=== PATIENT | male | born 1970 | race Caucasian/White ===

== ENCOUNTER 2019-05-17 12:41 | Outpatient (CLI) | payer BC, SELFPAY ==
[2019-05-17 12:52] LABS: Basophils Absolute Auto 0.04 K/mm3 (0.00-0.10); Basophils Percent Auto 0.7 % (0.0-1.0); Eosinophils Absolute Auto 0.12 K/mm3 (0.02-0.50); Hematocrit 45.8 % (40.0-54.0); Hemoglobin 16.1 g/dL (14.0-18.0); Immature Granulocyte Absolute 0.05 K/mm3 (0.00-0.00); Immature Granulocyte Percent A 0.8 % (0.0-0.0); Lymphocytes Absolute Auto 1.77 K/mm3 (1.10-4.50); Lymphocytes Percent Auto 29.1 % (18.0-42.0); Mean Corpuscular HGB Conc 35.2 g/dL (32.0-36.0); Mean Corpuscular Hemoglobin 34.8 pg (27.0-31.0); Mean Corpuscular Volume 98.9 fL (78.0-102.0); Mean Platelet Volume 10.7 fl (8.7-11.0); Monocytes Absolute Auto 0.45 K/mm3 (0.10-0.90); Monocytes Percent Auto 7.4 % (2.0-11.0); Neutrophils Absolute Auto 3.7 K/mm3 (1.7-7.2); Platelet Count Result 151 K/mm3 (150-420); Red Blood Count 4.63 M/mm3 (4.70-6.10); Red Cell Distribution Width 13.3 % (11.6-14.4); White Blood Count 6.1 K/mm3 (4.8-10.8)
[2019-05-17 13:17] LABS: Alanine Aminotransferase 86 U/L (16-63); Albumin Level 4.1 g/dL (3.4-5.0); Alkaline Phosphatase 60 U/L (46-116); Anion Gap 13.3 mmol/L (7-16); Aspartate Amino Transferase 36 U/L (15-37); Bilirubin,Total 0.8 mg/dL (0.00-1.00); Blood Urea Nitrogen 13 mg/dL (7-18); Calcium 9.1 mg/dL (8.5-10.1); Carbon Dioxide 29 mmol/L (21-32); Chloride 103 mmol/L (98-108); Creatine Kinase 98 U/L (39-308); Estimated Glomerular Filt Rate > 60; Glucose 116 mg/dL (70-99); Osmolality Calculated 293 mOsm/kg (285-295); Potassium 4.3 mmol/L (3.5-5.1); Sodium 141 mmol/L (136-145); Thyroid Stimulating Hormone 2.07 uIU/mL (0.36-3.74); Total Protein 7.3 g/dL (6.4-8.2); Troponin I < 0.02 ng/mL (0.00-0.056)
== END 2019-05-17 12:42 | disposition home or self-care (01) ==
LOC: CHSLAB 12:43
PROVIDERS: PCP Family Medicine; Visit Provider Family Medicine
DX: R07.89 Other chest pain (principal)
CPT/HCPCS: 36415; 80053; 82550; 84443; 84484; 85025

== ENCOUNTER 2019-06-11 08:53 | Outpatient (CLI) | payer BC, SELFPAY ==
--- NOTE | 2019-06-11 08:55 | EST_ITS ---
Patient Info Name: James Dave Age: 49 years : 1970 Gender: Male Ht: 67 in Wt: 272 lbs BSA: 2.48 m2 HR: 66 bpm BP: 104 / 71 mmHg Heart Rhythm: Sinus Rhythm Technical Quality: Good Exam Date: 06/11/2019 9:07 AM Exam Location: [facility] Patient Status: Outpatient Admit Date: 06/11/2019 Staff Ordering Physician: Shivam Rodriguez MD Attending Provider: Rob ROMAN CEP Referring Physician: Shivam Rodriguez; Exercise Technologist: Analilia Aguila CRT Exercise Physician: Mindy Roman CEP Exam Type: CA stress test treadmill Study Info Indications ChestPain - A treadmill exercise stress test was performed. Reason for Poor Study: poor patient cooperation History/Risk Factors Dyslipidemia: Yes Myocardial Infarction (ID): Yes Obesity: Yes History/Risk Factors Possible previous anterior ID. Cardiac Arrest: No Summary 1. 1. Negative Anatoly exercise stress test for ischemic ST changes by ECG criteria. However, patient achieved only 79% of MPHR for age group which reduces sensitivity of the test. 2. 2. Reduced functional capacity, achieving 8 METs of workload. 3. 3. Appropriate HR response to exercise. 4. 4. Appropriate HR recovery at 1 minute post exercise. 5. 5. No imaging with stress testing. Protocol: Anatoly Stress ECG Details Stage: REST Duration (min): 2 min : 48 sec Speed (mph): 0.0 Grade (%): 0 HR (bpm): 67 SBP (mmHg): 104 DBP (mmHg): 71 METS: --- Stage: REST Duration (min): 3 min : 50 sec Speed (mph): 0.0 Grade (%): 0 HR (bpm): 68 SBP (mmHg): 104 DBP (mmHg): 71 METS: --- Stage: STAGE 1 Duration (min): 1 min : 0 sec Speed (mph): 1.7 Grade (%): 10 HR (bpm): 85 SBP (mmHg): 104 DBP (mmHg): 71 METS: --- Stage: STAGE 1 Duration (min): 2 min : 0 sec Speed (mph): 1.7 Grade (%): 10 HR (bpm): 100 SBP (mmHg): 104 DBP (mmHg): 71 METS: --- Stage: STAGE 1 Duration (min): 3 min : 0 sec Speed (mph): 1.7 Grade (%): 10 HR (bpm): 104 SBP (mmHg): 139 DBP (mmHg): 49 METS: --- Stage: STAGE 2 Duration (min): 1 min : 0 sec Speed (mph): 2.5 Grade (%): 12 HR (bpm): 113 SBP (mmHg): 139 DBP (mmHg): 49 METS: --- Stage: STAGE 2 Duration (min): 2 min : 0 sec Speed (mph): 2.5 Grade (%): 12 HR (bpm): 121 SBP (mmHg): 139 DBP (mmHg): 49 METS: --- Stage: STAGE 2 Duration (min): 3 min : 0 sec Speed (mph): 2.5 Grade (%): 12 HR (bpm): 125 SBP (mmHg): 139 DBP (mmHg): 49 METS: --- Stage: STAGE 3 Duration (min): 1 min : 0 sec Speed (mph): 3.4 Grade (%): 14 HR (bpm): 135 SBP (mmHg): 139 DBP (mmHg): 49 METS: --- Stage: STAGE 3 Duration (min): 1 min : 0 sec Speed (mph): 3.4 Grade (%): 14 HR (bpm): 135 SBP (mmHg): 139 DBP (mmHg): 49 METS: --- Stage: RECOVERY Duration (min): 0 min : 59 sec Michelle
== END 2019-06-11 08:54 | disposition home or self-care (01) ==
PROVIDERS: PCP Family Medicine; Visit Provider Family Medicine
DX: R07.89 Other chest pain (principal)
CPT/HCPCS: 93017

== ENCOUNTER 2019-06-14 08:35 | Outpatient (CLI) | payer BC, SELFPAY ==
--- NOTE | ~2019-06-14 | XR_ITS ---
EXAMINATION: XR chest 2V 06/14/2019 10:47 INDICATION: Chest pain and pressure PROCEDURE: 2 view chest COMPARISON: Comparison to multiple prior studies sequentially, with oldest reviewed study dated 01/08. FINDINGS: The lungs are clear. The cardiomediastinal silhouette is within normal limits. There are no pleural effusions. There is no pneumothorax suspected. IMPRESSION: 1: NO ACUTE CARDIOPULMONARY DISEASE. Reviewed, dictated and finalized at location A.
--- NOTE | 2019-06-14 09:43 | ECHO_ITS ---
Patient Info Name: James Dave Age: 49 years : 1970 Gender: Male Ht: 69 in Wt: 265 lbs BSA: 2.47 m2 HR: 73 bpm BP: 134 / 79 mmHg Technical Quality: Fair Exam Date: 06/14/2019 8:45 AM Exam Location: [facility] Patient Status: Outpatient Admit Date: 06/14/2019 Staff Ordering Physician: Shivam Rodriguez MD Station Installation Supervisor: Brianna Rocha RDCS Attending Provider: Shivam Rodriguez MD Referring Physician: Michael BAY; Exam Type: CA echo doppler color flow Study Info Indications R94.31 - Abnormal electrocardiogram ECG EKG Complete two-dimensional, color flow and Doppler transthoracic echocardiogram is performed with contrast to opacify the left ventrical and to improve the deliniation of the left ventrical endocarial boarders. Strain analysis performed. Contrast/Agitated Saline Contrast/Ag. Saline: Definity Amount: 7.00 ml Existing IV Access: No IV Access Condition: patent with no signs of infiltration New IV Access: Antecubital Space and Right Site Condition: No extravasation, Site dressing applied and IV removed History/Risk Factors Hypertension: Yes Dyslipidemia: Yes Myocardial Infarction ([place]): Yes Obesity: Yes Family History: Coronary Artery Disease Frailty Scale (CSHA): 3: Managing Well Cardiac Arrest: No Summary 1. Left ventricular chamber dimension is normal. 2. Left ventricular systolic function is normal, estimated at 60-65%. 3. The left ventricular diastolic function is normal. 4. E/e' 8 is minimally elevated. 5. Global longitudinal strain is abnormal at -13.7%. 6. There is trace aortic valve regurgitation. 7. There is trace pulmonic regurgitation. Left Ventricle E/e' 8 is minimally elevated. Global longitudinal strain is abnormal at -13.7%. Left ventricular chamber dimension is normal. Left ventricular systolic function is normal, estimated at 60-65%. The left ventricular diastolic function is normal. Right Ventricle Right ventricular chamber dimension is normal. Right ventricular systolic function is normal. Left Atria Left atrial chamber dimension is normal. Right Atria Right atrial chamber dimension is normal. Aortic Valve The aortic valve is trileaflet. There is no aortic valve stenosis. There is trace aortic valve regurgitation. Pulmonic Valve There is trace pulmonic regurgitation. Mitral Valve There is no mitral valve stenosis. There is no mitral valve regurgitation. Tricuspid Valve There is no tricuspid valve regurgitation. Pericardium/Pleural There is no pericardial effusion. Inferior Vena Cava Normal inferior vena cava with >50% collapse upon inspiration consistent with normal right atrial pressure, 5 mmHg. Aorta The aortic root size at the sinus of Valsalva is normal. Left Ventricular Outflow Tract Name Value Normal LVOT 2D LVOT Diameter 2.1 cm LVOT Doppler LVOT Peak Velocity 98 cm/s LVOT Peak Gradient 4 mmHg LVOT Mean Gradient 2 mmHg
== END 2019-06-14 08:36 | disposition home or self-care (01) ==
PROVIDERS: PCP Family Medicine; Visit Provider Family Medicine
DX: R06.02 Shortness of breath (principal); R94.31 Abnormal electrocardiogram [ECG] [EKG]; R07.89 Other chest pain
CPT/HCPCS: 71046; 94060; 94726; 94729; C8929

== ENCOUNTER 2019-07-16 07:35 | Outpatient (CLI) | payer BC, SELFPAY ==
--- NOTE | ~2019-07-16 | US_ITS ---
EXAMINATION: US carotid duplex BI DATE: 07/16/2019 08:31 INDICATION: Carotid artery disease TECHNIQUE: Grayscale, color Doppler, and pulsed Doppler images of the cervical carotid arteries were obtained. The degree of vessel stenosis is placed in one of the following categories: normal, <50%, 5 0-69%, >=70% but less than near-occlusion, near-occlusion, or total occlusion. Note that percent sten osis relative to normal distal artery lumen diameter is indirectly measured from velocity measurement s as described by Adithya, et al. Radiology 2003; [id number]. Notes: Normal: Peak systolic velocity <125 centimeters/sec and no plaque <50%. Peak systolic velocity <125 ( EDV <40; ICA/CCA PSV ratio <2.0; used these factors only a tandem lesions or low cardiac output or co ntralateral disease) 50-69 %: PSV 125-230 (EDV 40-100; ratio 2-4) >= 70% but less than near occlusion: PSV greater than 230 (EDV > 100; ratio> 4.0) Near Occlusion: PSV that is variable; markedly narrowed lumen Occlusion: Absent flow on color/spectral Doppler and no lumen on orozco scale. COMPARISON: None. FINDINGS: RIGHT: The right common carotid artery (CCA) peak systolic velocity (PSV) is 124 cm/s. The right internal ca rotid artery (ICA) PSV is 103 cm/s. The right ICA end-diastolic velocity (EDV) is 24 cm/s. The right ICA/CCA PSV ratio is 0.8. The external carotid artery (ECA) PSV is 108 cm/s. No flow visualized in th e right vertebral artery. LEFT: The left CCA PSV is 103 cm/s. The left ICA PSV is 186 cm/s. The left ICA EDV is 28 cm/s. The left ICA /CCA PSV ratio is 1.8 . The ECA PSV is 120 cm/s. There is antegrade flow in the left vertebral arter y. IMPRESSION: 1. Less than 50% stenosis in the right internal carotid artery by sonographic criteria. 2. 50-69% stenosis in the left internal carotid artery by sonographic criteria. 3: No flow visualized in the right vertebral artery, possibly occluded. Reviewed, dictated and finalized at location A. IMPRESSION: 1. Less than 50% stenosis in the right internal carotid artery by sonographic c riteria. 2. 50-69% stenosis in the left internal carotid artery by sonographic criteria. 3: No flow visualized in the right vertebral artery, possibly occluded.
== END 2019-07-16 07:36 | disposition home or self-care (01) ==
PROVIDERS: PCP Family Medicine; Visit Provider Specialist
DX: R07.9 Chest pain, unspecified (principal); I65.22 Occlusion and stenosis of left carotid artery; I77.89 Other specified disorders of arteries and arterioles
CPT/HCPCS: 78452; 93017; 93880; A9502; J2785

== ENCOUNTER 2019-07-16 16:46 | Emergency (ER) | payer BC, SELFPAY ==
[2019-07-16 16:57] VITALS: BP 129/79; PULSE 73; RESP 20; O2SAT 98
--- NOTE | 2019-07-16 17:02 | ED.BACK ---
HPI - Back Pain/Injury General Chief Complaint: Back Pain/Injury Stated Complaint: side pain Time Seen by Provider: 07/16/19 16:58 Source: patient and RN notes reviewed Mode of arrival: ambulatory History of Present Illness MD elicited complaint: back pain Onset (ago): day(s) (10) Timing: intermittent Severity: moderate Similar Symptoms Previously: No Quality: dull and aching Location: right flank Radiation: none Exacerbating factors: movement and eating Relieving factors: none Associated symptoms: denies other symptoms Work related injury: No Related Data Home Medications Medication Instructions Recorded Confirmed allopurinol 150 mg PO DAILY 12/14/18 07/16/19 atorvastatin 40 mg PO HS 12/14/18 07/16/19 buspirone 15 mg PO DAILY 12/14/18 07/16/19 citalopram 20 mg PO DAILY 12/14/18 07/16/19 gabapentin 300 mg PO TID 12/14/18 07/16/19 lisinopril-hydrochlorothiazide 1 tablet PO DAILY 12/14/18 07/16/19 metoprolol tartrate 25 mg PO BID 12/14/18 07/16/19 venlafaxine 75 mg PO DAILY 12/14/18 07/16/19 Allergies Allergy/AdvReac Type Severity Reaction Status Date / Time iohexol AdvReac Anaphylaxis Verified 01/29/19 08:57 [From CONTRAST - CT, XRAY] Review of Systems Constitutional: Constitutional: Denies chills, Denies fever(s) and Denies weakness Eyes: Eyes: Reports no additional eye complaints ENT: Reports system reviewed and no additional complaints, except as documented Cardiovascular: Cardiovascular: Reports no additional cardiovascular complaints Respiratory: Respiratory: Reports no additional respiratory complaints Gastrointestinal: Gastrointestinal: Denies constipation, Denies nausea and Denies vomiting Genitourinary: Genitourinary: Denies hematuria, Denies dysuria, Denies urinary frequency and Denies urinary incontinence Musculoskeletal: Musculoskeletal: Reports as per HPI Integumentary/Breasts: Skin/Breast: Reports system reviewed and no additional complaints, except as docu Neurologic: Reports system reviewed and no additional complaints, except as documented Psychiatric: Psychiatric: Reports no additional psychiatric complaints Hematologic/Lymphatic: Hematologic/Lymphatic: Reports no additional hematologic/lymphatic complaints Allergic/Immunologic: Allergic/Immunologic: Reports no additional allergic/immunologic complaints [facility] Past Medical History Medical History Depression Gout Hypercholesterolemia Hypertension Surgical History Surgical History H/O cervical spine surgery Family History Family History Father Hypertension Mother Hypertension Social History Social History Social History: 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 Additional living arrangements comments: spouse 2016 Additional occupation/education comments: unknown Gender identity (if verbalized by the patient): Male Exam Const: General: healthy appearing, no acute distress and alert Nutritional Appearance: well nourished and obese centrally obese Orientation/consciousness: patient oriented x3 HENMT: Head: normal to inspection Ears: external ears normal General nose exam: Normal external nose present Face and sinus: normal facial exam Mouth: Yes lip normal and Yes moist mucous membranes Eyes: Conjunctivae: conjunctivae normal Pupils: Equal, round and reactive pupils present EOM: EOMs intact bilaterally Neck: Neck: normal visual inspection Resp: Effort & Inspection: normal respiratory effort Auscultation: clear to auscultation bilaterally Cardio: Rate: regular rate Rhythm: regular rhythm : General: Yes CVA tenderness on the right (Along lower rib border, mid axillary line) Male General Exam: Yes normal externa
[2019-07-16 17:22] LABS: Basophils Absolute Auto 0.04 K/mm3 (0.00-0.10); Basophils Percent Auto 0.5 % (0.0-1.0); Eosinophils Absolute Auto 0.16 K/mm3 (0.02-0.50); Eosinophils Percent Auto 1.9 % (1.0-6.0); Hematocrit 42.3 % (40.0-54.0); Hemoglobin 15.1 g/dL (14.0-18.0); Immature Granulocyte Absolute 0.06 K/mm3 (0.00-0.00); Immature Granulocyte Percent A 0.7 % (0.0-0.0); Lymphocytes Absolute Auto 2.45 K/mm3 (1.10-4.50); Lymphocytes Percent Auto 29.7 % (18.0-42.0); Mean Corpuscular HGB Conc 35.7 g/dL (32.0-36.0); Mean Corpuscular Hemoglobin 35.1 pg (27.0-31.0); Mean Corpuscular Volume 98.4 fL (78.0-102.0); Mean Platelet Volume 10.8 fl (8.7-11.0); Monocytes Absolute Auto 0.95 K/mm3 (0.10-0.90); Monocytes Percent Auto 11.5 % (2.0-11.0); Neutrophils Absolute Auto 4.6 K/mm3 (1.7-7.2); Neutrophils Percent Auto 55.7 % (50.0-70.0); Platelet Count Result 165 K/mm3 (150-420); Red Cell Distribution Width 13.1 % (11.6-14.4); White Blood Count 8.3 K/mm3 (4.8-10.8)
[2019-07-16 17:22] LABS: Add Urine Microscopic? NO; Appearance Urine Clear (Clear); Bilirubin Urine Negative (Negative); Blood Urine Negative (Negative); Color Urine Yellow (Yellow); Glucose Urine UA Negative (Negative); Ketones Urine Negative (Negative); Leukocyte Esterase Ur Negative LEU/UL (Negative); Nitrate Urine Negative (Negative); Protein Urine Negative (Negative); pH Urine 5.5 (5.0-8.0)
[2019-07-16 17:35] LABS: Alanine Aminotransferase 104 U/L (16-63); Albumin Level 3.9 g/dL (3.4-5.0); Alkaline Phosphatase 54 U/L (46-116); Anion Gap 10.1 mmol/L (7-16); Aspartate Amino Transferase 42 U/L (15-37); Bilirubin,Total 0.7 mg/dL (0.00-1.00); Blood Urea Nitrogen 17 mg/dL (7-18); Carbon Dioxide 32 mmol/L (21-32); Chloride 101 mmol/L (98-108); Estimated Glomerular Filt Rate 60; Glucose 98 mg/dL (70-99); Osmolality Calculated 289 mOsm/kg (285-295); Potassium 4.1 mmol/L (3.5-5.1); Sodium 139 mmol/L (136-145); Total Protein 7.1 g/dL (6.4-8.2)
[2019-07-16 17:38] LABS: CRP < 0.2 mg/dL (0.0-0.9)
[2019-07-16 18:04] VITALS: RESP 17
== END 2019-07-16 18:05 | disposition home or self-care (01) ==
PROVIDERS: Emergency Provider Emergency Medicine; PCP Family Medicine
DX: R10.9 Unspecified abdominal pain (principal)
CPT/HCPCS: 36415; 80053; 81003; 85025; 86140; 99282; 99283

== ENCOUNTER 2019-07-25 18:46 | Observation (INO) | payer BC, SELFPAY ==
[2019-07-25 19:02] VITALS: BP 109/50; PULSE 106; RESP 16; TEMP 36.8; O2SAT 97
--- NOTE | 2019-07-25 19:09 | ED.GENADULT ---
HPI - General Adult General Chief complaint: Abdominal Pain Stated complaint: trouble urinating History of Present Illness HPI narrative: James is a 49M with a PMH of HLD, HTN, gout, and depression as well as 1 previous episode of urinary retention that presented to the ED after being unable to empty his bladder for 10+ hours. He had a small amount of urine this AM and another small amount but feels like he needs to urinate but cannot. He has pressure in his suprapubic region that is getting worse. He drank 5-6 bottles of water today. Urination was not painful or bloody. No other abdominal pain, chest pain, SOB, N/V or headaches. Related Data Home Medications Medication Instructions Recorded Confirmed atorvastatin 40 mg PO HS 12/14/18 07/25/19 buspirone 15 mg PO DAILY 12/14/18 07/25/19 citalopram 20 mg PO DAILY 12/14/18 07/25/19 gabapentin 300 mg PO TID 12/14/18 07/25/19 lisinopril-hydrochlorothiazide 1 tablet PO DAILY 12/14/18 07/25/19 metoprolol tartrate 25 mg PO BID 12/14/18 07/25/19 venlafaxine 75 mg PO DAILY 12/14/18 07/16/19 Allergies Allergy/AdvReac Type Severity Reaction Status Date / Time iohexol AdvReac Anaphylaxis Verified 01/29/19 08:57 [From CONTRAST - CT, XRAY] Review of Systems Constitutional: Constitutional: Reports no additional constitutional complaints, Denies chills, Denies fever(s) and Denies weakness Eyes: Eyes: Reports no additional eye complaints Cardiovascular: Cardiovascular: Reports no additional cardiovascular complaints Respiratory: Respiratory: Reports no additional respiratory complaints Gastrointestinal: Gastrointestinal: Reports no additional gastrointestinal complaints Genitourinary: Genitourinary: Reports as per HPI Musculoskeletal: Musculoskeletal: Reports no additional musculoskeletal complaints Integumentary/Breasts: Skin/Breast: Reports system reviewed and no additional complaints, except as docu Neurologic: Reports system reviewed and no additional complaints, except as documented Psychiatric: Psychiatric: Reports no additional psychiatric complaints Endocrine: Endocrine: Reports no additional endocrine complaints Hematologic/Lymphatic: Hematologic/Lymphatic: Reports no additional hematologic/lymphatic complaints Allergic/Immunologic: Allergic/Immunologic: Reports no additional allergic/immunologic complaints [facility] Past Medical History Medical History Depression Gout Hypercholesterolemia Hypertension Surgical History Surgical History H/O cervical spine surgery Family History Family History Father Hypertension Mother Hypertension Social History Social History Social History: 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 Additional living arrangements comments: spouse 2017 Additional occupation/education comments: unknown Gender identity (if verbalized by the patient): Male Exam Const: General: no acute distress and alert Orientation/consciousness: patient oriented x3 Limitations: No altered mental status HENMT: Head: normal to inspection Eyes: Pupils: Equal, round and reactive pupils present Neck: Neck: normal visual inspection Chest: Chest palpation & inspection: normal inspection of the chest Resp: Effort & Inspection: normal respiratory effort and not labored Auscultation: clear to auscultation bilaterally Cardio: Rate: regular rate Rhythm: regular rhythm Heart sounds: no murmurs Other: no edema GI: GI Palp: Yes Soft to palpation, No Guarding due to palpation present (GI) and No Rigid due to palpation Other: normal bowel sounds : Other: No CVA tenderness, but did have significant suprapubic tenderness. Back/Spine/Pelvis: Ba
[2019-07-25 19:31] LABS: Hematocrit 42.7 % (40.0-54.0); Hemoglobin 14.6 g/dL (14.0-18.0); Mean Corpuscular HGB Conc 34.2 g/dL (32.0-36.0); Mean Corpuscular Hemoglobin 34.5 pg (27.0-31.0); Mean Corpuscular Volume 100.9 fL (78.0-102.0); Platelet Count Result 160 K/mm3 (150-420); Red Blood Count 4.23 M/mm3 (4.70-6.10); Red Cell Distribution Width 13.6 % (11.6-14.4)
[2019-07-25 19:32] LABS: Add Urine Microscopic? YES; Appearance Urine Clear (Clear); Bilirubin Urine 2+ (Negative); Blood Urine Negative (Negative); Color Urine Yellow (Yellow); Glucose Urine UA Negative (Negative); Ketones Urine 1+ (Negative); Leukocyte Esterase Ur Negative (Negative); Nitrate Urine Negative (Negative); Protein Urine 3+ (Negative); Specific Grav Ur >= 1.030 (1.010-1.020)
[2019-07-25] MEDS: SODIUM CHLORIDE 0.9% IV 1,000 ML 999 ML IV CONT (19:36)
[2019-07-25 19:41] LABS: Anion Gap 12.2 mmol/L (7-16); Blood Urea Nitrogen 20 mg/dL (7-18); Calcium 9.6 mg/dL (8.5-10.1); Carbon Dioxide 31 mmol/L (21-32); Chloride 103 mmol/L (98-108); Estimated CRCL calculation 37 ml/min; Estimated Glomerular Filt Rate 25; Glucose 94 mg/dL (70-99); Osmolality Calculated 296 mOsm/kg (285-295); Potassium 4.2 mmol/L (3.5-5.1); Sodium 142 mmol/L (136-145)
[2019-07-25 19:42] LABS: RBC Urine 0-2 /hpf (0-2); Squamous Epithelial Cell Urine Few /hpf (Few); WBC Urine 0-3 /hpf (0-3)
--- NOTE | 2019-07-25 19:42 | PC.NURSE ---
patient on cell phone, laughing & talking
[2019-07-25 19:43] LABS: Amorphous Sediment Urine Heavy; Bacteria Urine 1+ /hpf
--- NOTE | 2019-07-25 19:43 | PC.NURSE ---
1900 bladder scan done, showed 10ml
[2019-07-25 20:22] VITALS: BP 110/60; PULSE 100; RESP 18; TEMP 36.8; O2SAT 97
[2019-07-25 20:29] LABS: Sodium Urine Random 38 mmol/L (20-110)
[2019-07-25 20:30] VITALS: BP 110/59; PULSE 99; RESP 18; TEMP 36.8; O2SAT 96
[2019-07-25] MEDS: SODIUM CHLORIDE 0.9% IV 1,000 ML 125 ML IV CONT (20:43)
--- NOTE | 2019-07-25 20:45 | ADMGEN ---
This patient, James Dave, was admitted to 2nd Floor Room 204-2. Patient oriented to hospital policies and general routines including ID bracelet, bed and alarms, visiting hours, pain management, procedures, bathroom and other care routines, personal items, smoking policy, room service/diet, and visiting hours. Valuables list includes clothing, wallet, debit and link cards, keys, cell phone and calculation reviewer. Information on how to activate the Rapid Response Team has been discussed. Patient are encouraged to report perceived risks to care and to ask questions if they do not understand what they are told or what they should do.
--- NOTE | 2019-07-25 21:00 | PC.NURSE ---
Patient laughing and talking on phone while nurse trying to do admission questions. Patient made 6 phone calls then answered nurses needed questions. Patient then right back on phone. Patient told everyone he called that he can't get fired for not working because I'm in the hospital and my kidneys shut down and they don't know if I'll get better or worse and then said he hopes he can go home tomorrow. IV NS infusing to site in left hand. Gave patient urinal and asked him to call nurse after using it so it can be emptied. Call light explained and in reach.
--- NOTE | 2019-07-25 21:25 | PC.NURSE ---
Patient asking for supper tray and told cafeteria is closed. Explained items kept on floor for patient. Patient given a ham sandwich and cup of fruit. Call light in reach.
[2019-07-25 21:32] VITALS: BMI 43.9
--- NOTE | 2019-07-25 21:54 | PC.NURSE ---
Patient still talking on phone. Ham sandwich gone. Patient then said he doesn't really want the fruit. Urinal emptied of 200ml hernan urine. Patient then asked what kind of cereal we have. Patient given corn flakes and milk. Call light in reach.
[2019-07-25 21:58] VITALS: BP 120/70; PULSE 98; RESP 18; TEMP 36.3; O2SAT 97
--- NOTE | 2019-07-25 22:43 | PC.NURSE ---
Patient still talking and laughing on phone. No distress noted. IV NS infusing without difficulty. No distress noted. Call light in reach.
[2019-07-25] MEDS: ATORVASTATIN 40 MG TABLET PO (22:47)
[2019-07-25] MEDS: ACETAMINOPHEN 325 MG TABLET 650 MG PO (22:47)
--- NOTE | 2019-07-25 23:00 | PC.NURSE ---
Patient's urinal emptied of clear yellow urine. IV NS infusing to site in left hand without difficulty. No distress noted. Dr Esquivel updated on patient's output. Call light in reach.
[2019-07-26] VITALS: BP 115/50; PULSE 76; RESP 16; TEMP 36.3; O2SAT 95
--- NOTE | 2019-07-26 | PC.NURSE ---
Patient had been sleeping/snoring when nurse entered room but awakened when name spoken. Reports back pain better and rated it at 4 now. IV NS infusing without difficulty to site in left hand. No distress noted. Call light in reach.
--- NOTE | 2019-07-26 01:05 | PC.NURSE ---
Patient appears to be sleeping by the rise and fall of his chest. No distress noted. IV NS infusing to site in left hand without difficulty. Call light in reach.
[2019-07-26] MEDS: SODIUM CHLORIDE 0.9% IV 1,000 ML 125 ML IV CONT (04:17)
[2019-07-26 06:00] LABS: Anion Gap 10.8 mmol/L (7-16); Blood Urea Nitrogen 21 mg/dL (7-18); Calcium 8.5 mg/dL (8.5-10.1); Carbon Dioxide 29 mmol/L (21-32); Chloride 106 mmol/L (98-108); Estimated CRCL calculation 63 ml/min; Estimated Glomerular Filt Rate 46; Glucose 104 mg/dL (70-99); Osmolality Calculated 297 mOsm/kg (285-295); Potassium 3.8 mmol/L (3.5-5.1); Sodium 142 mmol/L (136-145)
[2019-07-26 08:00] VITALS: BP 101/56; PULSE 72; RESP 16; TEMP 37.1; O2SAT 98
[2019-07-26 08:45] VITALS: PULSE 65
[2019-07-26] MEDS: ENOXAPARIN 40 MG/0.4 ML SYRINGE SUB-Q (08:45)
[2019-07-26] MEDS: METOPROLOL TARTRATE 25 MG TABLET PO (08:45)
[2019-07-26 09:00] LABS: Basophils Absolute Auto 0.03 K/mm3 (0.00-0.10); Basophils Percent Auto 0.5 % (0.0-1.0); Eosinophils Absolute Auto 0.16 K/mm3 (0.02-0.50); Eosinophils Percent Auto 2.6 % (1.0-6.0); Hematocrit 40.7 % (40.0-54.0); Hemoglobin 13.8 g/dL (14.0-18.0); Immature Granulocyte Absolute 0.03 K/mm3 (0.00-0.00); Immature Granulocyte Percent A 0.5 % (0.0-0.0); Lymphocytes Absolute Auto 2.14 K/mm3 (1.10-4.50); Lymphocytes Percent Auto 35.4 % (18.0-42.0); Mean Corpuscular HGB Conc 33.9 g/dL (32.0-36.0); Mean Corpuscular Hemoglobin 34.8 pg (27.0-31.0); Mean Corpuscular Volume 102.5 fL (78.0-102.0); Mean Platelet Volume 11.6 fl (8.7-11.0); Monocytes Absolute Auto 0.59 K/mm3 (0.10-0.90); Monocytes Percent Auto 9.8 % (2.0-11.0); Neutrophils Absolute Auto 3.1 K/mm3 (1.7-7.2); Neutrophils Percent Auto 51.2 % (50.0-70.0); Platelet Count Result 145 K/mm3 (150-420); Red Blood Count 3.97 M/mm3 (4.70-6.10)
[2019-07-26 09:30] LABS: Creatine Kinase 232 U/L (39-308)
[2019-07-26 09:33] LABS: Magnesium 1.9 mg/dL (1.8-2.4); Phosphorus 4.5 mg/dL (2.6-4.7)
[2019-07-26 09:33] LABS: Thyroid Stimulating Hormone Reflex 1.02 u/IU/mL (0.36-3.74); Troponin I < 0.02 ng/mL (0.00-0.056)
[2019-07-26 11:54] VITALS: BP 110/70
--- NOTE | 2019-07-26 12:23 | PM.IMHP ---
H&P: HPI History of Present Illness Chief complaint: PATTI Narrative: James Dave is a 49 year old male admitted yesterday due to poor urinary output, dehydration, possible urinary retention. HIs admitting labs showed an PATTI with a Cr of 2.71 with a historical baseline of 1.2. Was admitted for PATTI (acute kidney injury) then given normal saline at 150 per hour and PO hydrate then rechecked labs in the AM. He has a history of HLD, HTN, gout, depression, urinary retention, Pericarditis, chronic back pain. This morning James has been urinating and voiding independently in the hospital bathroom in his room, without blood, without pain, without urgency or frequency. He is also able to use a urinal, his urine is yellow in color, without cloudiness or sediment. He denies headache, denies chest pain or pressure, admits to having chronic back pain, James's creatinine improved to 1.62 and he is voiding routinely now and without any difficulty. His UA showed 3+ protein, 1+ ketones, 2+ bili, 1+ bacteria and I have sent that on for urine culture. His white count is 6.0, he is without chills or fevers, and he has no sign of tachycardia or sepsis. He informed me that he has been taking colchicine for his chest pain. I confirmed this prescription from Dr. Couch's office with [facility]. I checked his uric acid level and found to be normal at 5.5. I discovered just prior to his discharge today that he was taking Colchicine for his Pericarditis, I have informed him to call Dr. Couch and discuss that with him as well as follow-up with Dr. Rodriguez tomorrow, requesting the patient make sure that both physicians understand he was admitted for acute renal failure. Review of Systems Review of Systems: All systems reviewed & are unremarkable except as noted in HPI and below Constitutional: Constitutional: Reports as per HPI, Reports no additional constitutional complaints, Denies chills, Denies difficulty sleeping, Denies fever(s) and Denies weakness Eyes: Eyes: Reports as per HPI and Reports no additional eye complaints ENT: Reports as per HPI, Reports Normal hearing present, Denies facial pain, Denies headache(s), Denies epistaxis, Denies odynophagia and Denies tinnitus Cardiovascular: Cardiovascular: Reports as per HPI, Reports no additional cardiovascular complaints, Denies chest pain, Denies pedal edema, Denies leg edema, Reports lightheadedness and Denies palpitations Respiratory: Respiratory: Reports as per HPI, Reports no additional respiratory complaints, Denies chest congestion, Denies cough, Denies hemoptysis, Denies dyspnea, Denies dyspnea on exertion and Denies wheezing Gastrointestinal: Gastrointestinal: Reports as per HPI, Reports no additional gastrointestinal complaints, Denies abdominal pain, Denies melena, Denies bloating, Denies hematochezia, Denies diarrhea, Denies nausea, Denies vomiting and Denies hematemesis Genitourinary: Genitourinary: Reports as per HPI Musculoskeletal: Musculoskeletal: Reports no additional musculoskeletal complaints and Reports as per HPI Integumentary/Breasts: Skin/Breast: Reports system reviewed and no additional complaints, except as docu and Reports as per HPI Neurologic: Reports system reviewed and no additional complaints, except as documented, Reports as per HPI, Denies abnormal gait, Denies headache(s), Denies numbness and Denies weakness Psychiatric: Psychiatric: Reports no additional psychiatric complaints, Reports as per HPI and Denies anxiety Endocrine: Endocrine: Reports no additional endocrine complaints Hematologic/Lymphatic: Hematologic/Lymphatic: Reports no additional hematologic/lymphatic complaints Allergic/Immunologic: Allergic/Immunologic: Reports no additional allergic/immunologic complaints PMFSH Past Medical History Medical History (Updated 07/26/19 @ 15:07 by Olga Lidia Cho NP) Chronic back pain Depression Gout Hypercholesterolemia Hypertension Pericarditis Urina
--- NOTE | 2019-07-26 12:24 | PM.DS ---
DS: Admitting Diagnosis Admitting Diagnosis Admitting Diagnosis: Pure hypercholesterolemia, unspecified DS: Discharge Diagnosis Discharge Diagnosis (1) PATTI (acute kidney injury): Code(s): N17.9 - Acute kidney failure, unspecified Status: Acute Assessment and Plan: possibly due to urinary retention, dehydration, nephro toxic medications, poor cardiac output/ or hypotension. admitted Cr of 2.71 with a historical baseline of 1.2. UA showed 3+ protein, 1+ ketones, 2+ bili, 1+ bacteria and I have sent that on for urine culture. given normal saline at 150 per hour PO hydrate BPs and HRs stable, I/Os documented, EKG reviewed and without. home nephrotoxic medications that he has been taking include: atorvastatin, lisinopril, hydrochlorothiazide, allopurinol, colchicine, Motrin improved significantly with IVFs and oral hydration, no pain, no retention noted, urine output up, urine appearance improved. creatinine now 1.62 white count is 6.0, he is without chills or fevers, and he has no sign of tachycardia or sepsis. discharge with CMP ordered for Tuesday or Tuesday, results go to PCP. He is to continue adequate oral hydration after discharge, patient teaching completed, instructions in discharge orders. Follow up with Dr. Couch and Dr. Rodriguez tomorrow, requesting the patient make sure that both physicians understand he was admitted for acute renal failure. (2) Hypertension: Code(s): I10 - Essential (primary) hypertension Status: Acute Assessment and Plan: Cardiac Panel WNL denies SOB, dyspnea, headache, chest pressure or pain, arm or jaw pain. No current chest wall discomfort today per patient report and discussion. orthostatic blood pressures were within normal limits, consistent, and hemodynamically stable blood pressures have been between 101/56 up to 116/78 today WITHOUT the Lisinopril/HCTZ. heart rates have been 65 up to 72, regular will hold Lisinopril/HCTZ. continue the antianxiety/antidepressants. continue the Metoprolol Home dose at 25 mg BID. Continue the atorvastatin 40 mg daily. Follow up with Dr. Rodriguez tomorrow, and then Dr. Couch. CONTROLLED at this time. DS: Summary Time Spent with Patient Time attestation: Total time spent providing and/or coordinating discharge services: Exam Const: General: comfortable, no acute distress and alert; No in distress Orientation/consciousness: patient oriented x3 Limitations: No altered mental status HENMT: Head: normal to inspection General nose exam: Normal nares present and no epistaxis Eyes: General: appearance normal, both eyes and all related structures Pupils: Equal, round and reactive pupils present EOM: EOMs intact bilaterally Neck: Neck: normal visual inspection Chest: Chest palpation & inspection: normal inspection of the chest, no crepitus and No Pacemaker present Resp: Effort & Inspection: normal respiratory effort and not labored Auscultation: clear to auscultation bilaterally Cardio: Rate: regular rate Rhythm: regular rhythm Heart sounds: no murmurs Other: no edema GI: Inspection: normal to inspection and non-distended Auscultation: normal bowel sounds Rectal Exam: deferred Other: normal bowel sounds : General: Yes no CVA tenderness Other: No CVA tenderness, but did have significant suprapubic tenderness. Urinary Catheter: Urinary Catheter: urine clear Back/Spine/Pelvis: Back: no CVA tenderness Skin: General skin exam: normal color and no erythema Rashes: no rashes and no rashes noted Wounds: no wounds Neuro: General: patient oriented x3, gait normal and moves all extremities Cranial nerves: Yes Equal, round and reactive pupils present and Yes Normal hearing present Cognition (Neuro): normal cognition Speech: normal speech Motor exam (neuro): 5/5 motor strength present throughout and Normal motor muscle tone present throughout Extrem: General: normal to inspection, no edema and
[2019-07-26] MEDS: LIDOCAINE 5% PATCH 2 PATCH TRANSDERM (13:07)
[2019-07-26 13:17] VITALS: BP 110/59; BP 116/78; PULSE 72; RESP 16; TEMP 37; O2SAT 97
[2019-07-26 13:41] LABS: Uric Acid 5.5 mg/dL (3.5-7.2)
--- NOTE | 2019-07-28 02:35 | PC.NURSE ---
IV Fluids NS stopped 200607/25/2019
[2019-07-29 04:07] LABS: Osmolality, Urine 374 mOsm/kg (50-1200)
== END 2019-07-26 14:02 | disposition home or self-care (01) ==
LOC: CHSED 20:19 → CHS2ND 20:28
PROVIDERS: Nurse Practitioner; Admitting Provider Family Medicine; Emergency Provider Family Medicine; PCP Family Medicine; Visit Provider Family Medicine
DX: N17.9 Acute kidney failure, unspecified (principal); I31.9 Disease of pericardium, unspecified; I10 Essential (primary) hypertension; E78.5 Hyperlipidemia, unspecified; M10.9 Gout, unspecified; M54.9 Dorsalgia, unspecified; F32.9 Major depressive disorder, single episode, unspecified
CPT/HCPCS: 36415; 80048; 81001; 82550; 82553; 82570; 83735; 83935; 84100; 84300; 84443; 84484; 84550; 85025; 85027; 87086; 96360; 96361; 96372; 97161; 99283; 99285; A9270; G0378; J1650; J7030

== ENCOUNTER 2019-07-27 11:44 | Outpatient (CLI) | payer BC, SELFPAY ==
[2019-07-27 11:57] LABS: Basophils Absolute Auto 0.01 K/mm3 (0.00-0.10); Basophils Percent Auto 0.2 % (0.0-1.0); Eosinophils Absolute Auto 0.14 K/mm3 (0.02-0.50); Eosinophils Percent Auto 3.1 % (1.0-6.0); Immature Granulocyte Absolute 0.02 K/mm3 (0.00-0.00); Immature Granulocyte Percent A 0.4 % (0.0-0.0); Lymphocytes Absolute Auto 1.42 K/mm3 (1.10-4.50); Lymphocytes Percent Auto 31.3 % (18.0-42.0); Mean Corpuscular HGB Conc 34.9 g/dL (32.0-36.0); Mean Corpuscular Hemoglobin 34.6 pg (27.0-31.0); Mean Corpuscular Volume 99.1 fL (78.0-102.0); Mean Platelet Volume 10.6 fl (8.7-11.0); Monocytes Absolute Auto 0.38 K/mm3 (0.10-0.90); Monocytes Percent Auto 8.4 % (2.0-11.0); Neutrophils Absolute Auto 2.6 K/mm3 (1.7-7.2); Neutrophils Percent Auto 56.6 % (50.0-70.0); Platelet Count Result 150 K/mm3 (150-420); Red Blood Count 4.34 M/mm3 (4.70-6.10); Red Cell Distribution Width 13.2 % (11.6-14.4); White Blood Count 4.5 K/mm3 (4.8-10.8)
[2019-07-27 12:00] LABS: Add Urine Microscopic? YES; Appearance Urine Clear (Clear); Bilirubin Urine Negative (Negative); Blood Urine Negative (Negative); Color Urine Amber (Yellow); Glucose Urine UA Negative (Negative); Ketones Urine Negative (Negative); Leukocyte Esterase Ur Negative (Negative); Nitrate Urine Negative (Negative); Protein Urine Negative (Negative); Specific Grav Ur >= 1.030 (1.010-1.020); pH Urine 5.5 (5.0-8.0)
[2019-07-27 12:05] LABS: Bacteria Urine Trace /hpf; Mucus Urine Moderate /lpf; RBC Urine None seen /hpf (0-2); Squamous Epithelial Cell Urine Rare /hpf (Few); WBC Urine None seen /hpf (0-3)
[2019-07-27 12:20] LABS: Creatinine Urine 203.88 mg/dL (40-278); Total Protein Urine Random 22.5 mg/dL (0.0-11.9)
[2019-07-27 12:26] LABS: Alanine Aminotransferase 118 U/L (16-63); Albumin Level 4.2 g/dL (3.4-5.0); Alkaline Phosphatase 50 U/L (46-116); Anion Gap 14.1 mmol/L (7-16); Aspartate Amino Transferase 53 U/L (15-37); Bilirubin,Total 1.2 mg/dL (0.00-1.00); Blood Urea Nitrogen 17 mg/dL (7-18); Carbon Dioxide 28 mmol/L (21-32); Chloride 103 mmol/L (98-108); Estimated Glomerular Filt Rate > 60; Glucose 101 mg/dL (70-99); Osmolality Calculated 293 mOsm/kg (285-295); Potassium 4.1 mmol/L (3.5-5.1); Sodium 141 mmol/L (136-145); Total Protein 7.1 g/dL (6.4-8.2)
[2019-07-27 14:56] LABS: Bilirubin Direct 0.2 mg/dL (0-0.2)
== END 2019-07-27 11:45 | disposition home or self-care (01) ==
LOC: CHSLAB 11:46
PROVIDERS: PCP Family Medicine; Visit Provider Nurse Practitioner
DX: N17.9 Acute kidney failure, unspecified (principal); R80.9 Proteinuria, unspecified; F32.9 Major depressive disorder, single episode, unspecified; E78.00 Pure hypercholesterolemia, unspecified; I10 Essential (primary) hypertension; T78.40XA Allergy, unspecified, initial encounter; R79.9 Abnormal finding of blood chemistry, unspecified
CPT/HCPCS: 36415; 80053; 81001; 82248; 82570; 84156; 85025

== ENCOUNTER 2019-07-30 11:04 | Outpatient (CLI) | payer BC, SELFPAY ==
--- NOTE | ~2019-07-30 | US_ITS ---
EXAMINATION: US retroperitoneal comp DATE: 07/30/2019 11:26 INDICATION: Acute renal failure TECHNIQUE: Multiple ultrasound grayscale images of the kidneys were obtained. COMPARISON: 06/12/2018 FINDINGS: The right kidney measures 10.3 x 5.4 x 4.9 cm. The left kidney measures 11.1 x 5.1 x 6.0 cm. The kidn eys demonstrate normal echogenicity. There is no hydronephrosis in either kidney. No stones identifi ed. The incompletely distended bladder is normal. Prostatomegaly measuring 4.3 cm in diameter. Incide ntally noted diffuse hepatic steatosis with increased hepatic parenchymal echogenicity with coarsened echotexture. IMPRESSION: 1. Normal kidneys without hydronephrosis. 2. Diffuse hepatic steatosis. 3. Prostatomegaly. Reviewed, dictated and finalized at location A.
== END 2019-07-30 11:05 | disposition home or self-care (01) ==
PROVIDERS: PCP Family Medicine; Visit Provider Family Medicine
DX: N17.9 Acute kidney failure, unspecified (principal)
CPT/HCPCS: 76770

== ENCOUNTER 2019-08-01 16:01 | Outpatient (CLI) | payer BC, SELFPAY ==
[2019-08-01 16:38] LABS: Partial Thromboplastin Time 23.8 SEC (22.3-31.6); Prothrombin Time 10.7 Seconds (9.64-11.0)
[2019-08-01 17:14] LABS: Blood Urea Nitrogen 17 mg/dL (7-18); Calcium 9.4 mg/dL (8.5-10.1); Carbon Dioxide 30 mmol/L (21-32); Chloride 101 mmol/L (98-108); Estimated Glomerular Filt Rate 60; Ferritin 343 ng/mL (26-388); GGT 45 U/L (15-85); Glucose 110 mg/dL (70-99); Iron 141 ug/dL (65-175); Osmolality Calculated 292 mOsm/kg (285-295); Percent Iron Saturation 43 % (12-57); Sodium 140 mmol/L (136-145); Uric Acid 4.9 mg/dL (3.5-7.2)
[2019-08-01 17:15] LABS: CRP < 0.2 mg/dL (0.0-0.9)
[2019-08-01 17:22] LABS: Erythrocyte Sedimentation Rate 10 mm/hr (0-15)
[2019-08-03 19:51] LABS: ANA Cascade Screen Negative (Negative)
[2019-08-03 21:36] LABS: Actin Antibody (IgG) <20 U (<20)
[2019-08-04 02:45] LABS: Hepatitis A Antibody Total Nonreactive (Nonreactive); Hepatitis B Core Ab Total Nonreactive (Nonreactive); Hepatitis B Surface Antibody Nonreactive (Nonreactive); Hepatitis B Surface Antigen Nonreactive (Nonreactive); Hepatitis C Signal to Cutoff 0.01 ratio (<1.00); Hepatitis C Virus Antibody Nonreactive (Nonreactive)
[2019-08-04 12:04] LABS: LKM 1 Antibody <=20.0 U (<=20.0)
== END 2019-08-01 16:02 | disposition home or self-care (01) ==
LOC: CHSLAB 16:03
PROVIDERS: PCP Family Medicine; Visit Provider Family Medicine
DX: K75.81 Nonalcoholic steatohepatitis (NASH) (principal); N17.9 Acute kidney failure, unspecified; I11.0 Hypertensive heart disease with heart failure
CPT/HCPCS: 36415; 80048; 82728; 82977; 83516; 83540; 83550; 84550; 85610; 85652; 85730; 86038; 86140; 86376; 86704; 86706; 86708

== ENCOUNTER 2019-08-06 08:13 | Outpatient (CLI) | payer BC, SELFPAY ==
--- NOTE | ~2019-08-06 | NM_ITS ---
EXAMINATION: NM hepatobiliary w pharm EXAM DATE: 08/06/2019 10:53 INDICATION: Right upper quadrant pain for 4 months. TECHNIQUE: 4.9 mCi Tc-99m mebrofenin (Choletec) was administered intravenously. Scintigraphic images of the abdomen were obtained for one hour. At the 1 hour time point, 2.3 mcg sincalide (Kinevac) was administered by slow intravenous infusion, and imaging was continued for 30 minutes. Gallbladder eje ction fraction was calculated by the technologist. There is no prior study for comparison. FINDINGS: There is normal clearance of radiotracer from the blood pool. There is homogeneous tracer u ptake by the liver. Activity progresses to the gallbladder and bowel. The gallbladder ejection fract ion (GBEF) is 89 % (most patients with gallbladder dysfunction have GBEF < 35%, but there is overlap with the normal range of 10-90%). Technologist noted no pain elicited during Kinevac injection. IMPRESSION: Gallbladder ejection fraction 89%, within normal range. Reviewed, dictated and finalized at location B.
== END 2019-08-06 08:14 | disposition home or self-care (01) ==
LOC: CHSIMG 08:15
PROVIDERS: PCP Family Medicine; Visit Provider Family Medicine
DX: R10.11 Right upper quadrant pain (principal)
CPT/HCPCS: 78227; A9537; J2805

== ENCOUNTER 2020-02-05 19:57 | Emergency (ER) | payer BC, SELFPAY ==
--- NOTE | ~2020-02-05 | XR_ITS ---
EXAMINATION: [id number] INDICATION: Right rib pain TECHNIQUE: A frontal view of the chest and 3 views of the right ribs were obtained. COMPARISON: None. FINDINGS: The lungs are free of acute opacities. There is no pleural effusion or pneumothorax. The ca rdiomediastinal silhouette is normal. The visualized bones and soft tissues are unremarkable. No disp laced rib fracture is identified. There are partially imaged changes of cervical spine fusion. IMPRESSION: 1. No acute cardiopulmonary abnormality or evidence of displaced rib fracture. Reviewed, dictated and finalized at location A. TICS COORDINATOR
--- NOTE | ~2020-02-05 | XR_ITS ---
EXAMINATION: XR pelvis 1-2V INDICATION: Pelvic pain after fall TECHNIQUE: AP view of the pelvis is obtained on two radiographs. COMPARISON: None available FINDINGS: Bone alignment is normal. There is no fracture. Phleboliths are noted in the pelvis. There also appear to be changes of mesh hernia repair. IMPRESSION: 1. No acute osseous abnormality. Reviewed, dictated and finalized at location A. ALT LAYER
--- NOTE | 2020-02-05 20:25 | ED.SYNCOPE ---
HPI - Syncope General Chief Complaint: Fall Stated Complaint: side pain Time Seen by Provider: 02/05/20 20:25 Source: patient Mode of arrival: ambulatory Limitations: no limitations History of Present Illness HPI narrative: 49-year-old man comes in today complaining of right rib And right pelvic pain. Patient states that he came home from work 2 nights ago and while getting undressed, he passed out, falling on the foot board of his bed. He states that he did not lose consciousness but felt very lightheaded. He denied preceding palpitations, nausea, sweating, or chest pain. he has worked for the last 2 days and well as rib pain is getting worse she has had no other syncopal symptoms, chest pain, palpitations, rapid heart rate, or lightheadedness or dizziness. He denies history of seizures. He denies recent illness. MD complaint: felt faint and almost passed out Onset (ago): day(s) (2) Prodromal symptoms: lightheaded Witnessed: No Context: standing up Injuries sustained associated with event: chest and other (right side) Current symptoms: none ( except right chest and side pain) Treatments prior to arrival: none Related Data Home Medications Medication Instructions Recorded Confirmed gabapentin 300 mg PO BID 12/14/18 02/05/20 metoprolol tartrate 12.5 mg PO DAILY 12/14/18 02/05/20 venlafaxine 150 mg PO DAILY 12/14/18 02/05/20 ergocalciferol (vitamin D2) 1,250 mcg PO WEEKLY 02/05/20 02/05/20 lisinopril-hydrochlorothiazide 1 tablet PO DAILY 02/05/20 02/05/20 pantoprazole 40 mg PO DAILY 02/05/20 02/05/20 Allergies Allergy/AdvReac Type Severity Reaction Status Date / Time iohexol AdvReac Anaphylaxis Verified 01/29/19 08:57 [From CONTRAST - CT, XRAY] Review of Systems Constitutional: Constitutional: Denies chills, Denies fever(s) and Denies weakness Eyes: Eyes: Denies change in vision and Denies photophobia ENT: Denies dysphagia, Denies nasal congestion and Denies sore throat Cardiovascular: Cardiovascular: Denies chest pain, Denies rapid heart rate and Denies radiating jaw, neck or arm pain Respiratory: Respiratory: Reports as per HPI, Denies cough, Denies dyspnea and Denies wheezing Gastrointestinal: Gastrointestinal: Denies abdominal pain, Denies diarrhea, Denies nausea and Denies vomiting Genitourinary: Genitourinary: Denies hematuria, Denies dysuria and Denies urinary frequency Musculoskeletal: Musculoskeletal: Denies back pain, Denies arthralgias and Denies joint swelling Comments: right flank pain Integumentary/Breasts: Skin/Breast: Denies pruritus, Denies erythema and Denies rash Neurologic: Denies vertigo, Denies dizziness and Reports syncope Hematologic/Lymphatic: Hematologic/Lymphatic: Denies easy bleeding and Denies easy bruising Allergic/Immunologic: Allergic/Immunologic: Denies lip swelling and Denies tongue swelling PMFSH Past Medical History Medical History Chronic back pain Depression Gout Hypercholesterolemia Hypertension Pericarditis Urinary retention Surgical History Surgical History H/O cervical spine surgery Family History Family History Father Hypertension Mother Hypertension Social History Social History 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 smoker Alcohol intake: never Substance use: never Additional living arrangements comments: spouse 2017 Additional occupation/education comments: unknown Gender identity (if verbalized by the patient): Male Spiritual care concerns: No Exam Const: General: alert Nutritional Appearance: obese Orientation/consciousness: patient oriented x3 Limitations: no limitations Other: Mild acute distress HEN
--- NOTE | 2020-02-05 20:30 | ECG_ITS ---
Measurements Intervals [place] Rate: 88 P: 25 MT: 135 QRS: 9 QRSD: 91 T: 20 QT: 339 QTc: 411 Interpretive Statements SINUS RHYTHM DELAYED PRECORDIAL R/S TRANSITION MINIMAL Q WAVES- INFERIOR LEADS BASELINE WANDER- AVR, AVL, AVF BORDERLINE ECG Electronically Signed On 02-06-2020 14:36:19 INDUSTRIAL RECRUITER by Ammon Ge D.O.
[2020-02-05 20:31] VITALS: BP 115/70; PULSE 98; RESP 20; TEMP 36.3; O2SAT 95
[2020-02-05 20:47] LABS: Basophils Absolute Auto 0.02 K/mm3 (0.00-0.10); Basophils Percent Auto 0.3 % (0.0-1.0); Eosinophils Absolute Auto 0.08 K/mm3 (0.02-0.50); Eosinophils Percent Auto 1.4 % (1.0-6.0); Hematocrit 43.7 % (40.0-54.0); Hemoglobin 14.6 g/dL (14.0-18.0); Immature Granulocyte Absolute 0.04 K/mm3 (0.00-0.00); Immature Granulocyte Percent A 0.7 % (0.0-0.0); Lymphocytes Absolute Auto 0.85 K/mm3 (1.10-4.50); Lymphocytes Percent Auto 14.5 % (18.0-42.0); Mean Corpuscular HGB Conc 33.4 g/dL (32.0-36.0); Mean Corpuscular Volume 101.9 fL (78.0-102.0); Mean Platelet Volume 11.1 fl (8.7-11.0); Monocytes Absolute Auto 0.81 K/mm3 (0.10-0.90); Monocytes Percent Auto 13.8 % (2.0-11.0); Neutrophils Absolute Auto 4.1 K/mm3 (1.7-7.2); Neutrophils Percent Auto 69.3 % (50.0-70.0); Platelet Count Result 133 K/mm3 (150-420); Red Blood Count 4.29 M/mm3 (4.70-6.10); Red Cell Distribution Width 12.9 % (11.6-14.4); White Blood Count 5.9 K/mm3 (4.8-10.8)
[2020-02-05 21:02] LABS: Alanine Aminotransferase 60 U/L (16-63); Albumin Level 4.4 g/dL (3.4-5.0); Alkaline Phosphatase 65 U/L (46-116); Anion Gap 11 mmol/L (8-16); Aspartate Amino Transferase 37 U/L (15-37); Bilirubin,Total 0.8 mg/dL (0.00-1.00); Blood Urea Nitrogen 23 mg/dL (7-18); Calcium 9.1 mg/dL (8.5-10.1); Carbon Dioxide 27 mmol/L (21-32); Chloride 100 mmol/L (98-108); Estimated CRCL calculation 51 ml/min; Estimated Glomerular Filt Rate 37; Glucose 97 mg/dL (70-99); Osmolality Calculated 289 mOsm/kg (285-295); Potassium 3.8 mmol/L (3.5-5.1); Sodium 138 mmol/L (136-145); Total Protein 7.5 g/dL (6.4-8.2)
[2020-02-05 21:13] LABS: Add Urine Microscopic? NO; Appearance Urine Clear (Clear); Bilirubin Urine Negative (Negative); Blood Urine Negative (Negative); Color Urine Yellow (Yellow); Glucose Urine UA Negative (Negative); Ketones Urine Negative (Negative); Leukocyte Esterase Ur Negative (Negative); Nitrate Urine Negative (Negative); Protein Urine Negative (Negative); Specific Grav Ur 1.025 (1.010-1.020); pH Urine 5.5 (5.0-8.0)
[2020-02-05 22:13] VITALS: BP 139/75; PULSE 87; RESP 20; O2SAT 97
== END 2020-02-05 22:16 | disposition home or self-care (01) ==
PROVIDERS: Emergency Provider Emergency Medicine; PCP Emergency Medicine
DX: E86.0 Dehydration (principal); R55 Syncope and collapse; S22.39XA Fracture of one rib, unspecified side, initial encounter for closed fracture; W19.XXXA Unspecified fall, initial encounter
CPT/HCPCS: 36415; 71101; 72170; 80053; 81003; 84484; 85025; 93005; 99283; 99284

== ENCOUNTER 2020-03-11 09:45 | Emergency (ER) | payer BC, SELFPAY ==
--- NOTE | ~2020-03-11 | CT_ITS ---
EXAMINATION: CT chest abdomen pelvis wo con EXAM DATE: 03/11/2020 10:43 INDICATION: Left lower quadrant pain, possible diverticulitis. Right chest pain. Right rib fracture o ne month ago. TECHNIQUE: Spiral CT of the chest, abdomen and pelvis was performed without contrast. Axial, hawkins l and sagittal images were reviewed. Coronal maximum intensity pixel images of chest reviewed. The dose-length product (DLP) for this examination was 1910.07 mGy-cm. The exposure was tailored accordi ng to patient size (auto mA exposure control), and iterative reconstruction (ASIR) was used as additi onal dose reduction technique. Comparison is made to prior examination from 01/29/2019. FINDINGS: CHEST: Scattered faint peripheral groundglass opacities likely nonspecific pneumonitis, possible COV ID 19 pneumonia given distribution. These are new compared to previous exam. There are no pleural or pericardial effusions. Tracheobronchial tree is patent. There is no mediastinal, hilar or axilla ry lymphadenopathy. There is no pneumothorax. Heart normal in size. There is mild coronary april rial calcification, arterial sclerosis. ABDOMEN PELVIS: The liver, spleen, adrenal glands and pancreas are unremarkable. Gallbladder is unre markable. No biliary obstruction. Left inguinal hernia repair. There is mild prostatomegaly. The b ladder is unremarkable. There is no retroperitoneal or pelvic lymphadenopathy. The appendix is normal. The stomach and small bowel are unremarkable. There is expected amount of c olonic stool. No free intraperitoneal gas. There are no osteoblastic or osteolytic lesions identi fied. There are no acute fractures identified. IMPRESSION: 1. Possible small amount of COVID pneumonia. 2. No acute intra-abdominal findings. 3. Mild prostatomegaly. Reviewed, dictated and finalized at location B. TRANSITION
[2020-03-11 09:54] VITALS: BP 112/77; PULSE 77; RESP 16; TEMP 36.3; O2SAT 98
[2020-03-11 10:33] LABS: Basophils Absolute Auto 0.03 K/mm3 (0.00-0.10); Basophils Percent Auto 0.4 % (0.0-1.0); Eosinophils Absolute Auto 0.22 K/mm3 (0.02-0.50); Hematocrit 41.6 % (40.0-54.0); Hemoglobin 14.4 g/dL (14.0-18.0); Immature Granulocyte Absolute 0.06 K/mm3 (0.00-0.00); Immature Granulocyte Percent A 0.8 % (0.0-0.0); Lymphocytes Absolute Auto 1.99 K/mm3 (1.10-4.50); Lymphocytes Percent Auto 27.4 % (18.0-42.0); Mean Corpuscular HGB Conc 34.6 g/dL (32.0-36.0); Mean Corpuscular Hemoglobin 34.4 pg (27.0-31.0); Mean Corpuscular Volume 99.5 fL (78.0-102.0); Mean Platelet Volume 10.4 fl (8.7-11.0); Monocytes Absolute Auto 0.81 K/mm3 (0.10-0.90); Monocytes Percent Auto 11.2 % (2.0-11.0); Neutrophils Absolute Auto 4.1 K/mm3 (1.7-7.2); Neutrophils Percent Auto 57.2 % (50.0-70.0); Platelet Count Result 131 K/mm3 (150-420); Red Blood Count 4.18 M/mm3 (4.70-6.10); Red Cell Distribution Width 14.1 % (11.6-14.4); White Blood Count 7.3 K/mm3 (4.8-10.8)
[2020-03-11] MEDS: ONDANSETRON HCL ODT 4 MG TABLET PO (10:38)
[2020-03-11] MEDS: KETOROLAC (*BKC) 60 MG/2 ML VIAL IM (10:39)
[2020-03-11 10:48] LABS: Alanine Aminotransferase 38 U/L (16-63); Albumin Level 3.9 g/dL (3.4-5.0); Alkaline Phosphatase 65 U/L (46-116); Anion Gap 10 mmol/L (8-16); Aspartate Amino Transferase 25 U/L (15-37); Bilirubin,Total 1.1 mg/dL (0.00-1.00); Blood Urea Nitrogen 19 mg/dL (7-18); Calcium 8.7 mg/dL (8.5-10.1); Carbon Dioxide 27 mmol/L (21-32); Chloride 102 mmol/L (98-108); Estimated CRCL calculation 80 ml/min; Estimated Glomerular Filt Rate 60; Glucose 83 mg/dL (70-99); Lipase 65 U/L (73-393); Osmolality Calculated 289 mOsm/kg (285-295); Potassium 3.6 mmol/L (3.5-5.1); Sodium 139 mmol/L (136-145); Total Protein 6.8 g/dL (6.4-8.2)
--- NOTE | 2020-03-11 11:37 | ED.NAVMDI ---
HPI - Nausea/Vomiting/Diarrhea General Chief complaint: Unspecified Stated complaint: R side pain Time Seen by Provider: 03/11/20 10:05 Source: patient and family Mode of arrival: ambulatory Limitations: no limitations History of Present Illness HPI Narrative: Patient states he has broken ribs on the right side from a fall, and present with continuing mild pain from these fractures which comes and goes. This is not associated with an shortness of breath whatsoever. He also complains of nausea off and on at times he says he has had issues with since he had Covid in January. Nausea has been mild and off and on in nature. MD elicited complaint: nausea Pertinent past history: other (right sided pain) Onset (ago): day(s) Description of vomiting: food contents Associated nausea: Yes (off and on) Associated abdominal pain: No Pain consistency: intermittent Severity: mild Quality: stabbing Exacerbating factors: movement Relieving factors: rest Treatment prior to arrival: analgesics and NSAIDs Related Data Home Medications Medication Instructions Recorded Confirmed gabapentin 300 mg PO BID 12/14/18 03/11/20 ergocalciferol (vitamin D2) 1,250 mcg PO WEEKLY 02/05/20 03/11/20 lisinopril-hydrochlorothiazide 1 tablet PO DAILY 02/05/20 03/11/20 pantoprazole 40 mg PO BID 02/05/20 03/11/20 allopurinol 300 mg PO DAILY 03/11/20 03/11/20 metoprolol succinate 12.5 mg PO DAILY 03/11/20 03/11/20 venlafaxine 150 mg PO DAILY 03/11/20 03/11/20 Allergies Allergy/AdvReac Type Severity Reaction Status Date / Time iohexol AdvReac Anaphylaxis Verified 01/29/19 08:57 [From CONTRAST - CT, XRAY] Review of Systems Constitutional: Constitutional: Reports no additional constitutional complaints Eyes: Eyes: Reports no additional eye complaints ENT: Reports system reviewed and no additional complaints, except as documented Cardiovascular: Cardiovascular: Reports no additional cardiovascular complaints Respiratory: Respiratory: Reports no additional respiratory complaints Gastrointestinal: Gastrointestinal: Reports no additional gastrointestinal complaints Genitourinary: Genitourinary: Reports no additional male genitourinary complaints Musculoskeletal: Musculoskeletal: Reports no additional musculoskeletal complaints Integumentary/Breasts: Skin/Breast: Reports system reviewed and no additional complaints, except as docu Neurologic: Reports system reviewed and no additional complaints, except as documented Psychiatric: Psychiatric: Reports no additional psychiatric complaints Endocrine: Endocrine: Reports no additional endocrine complaints Hematologic/Lymphatic: Hematologic/Lymphatic: Reports no additional hematologic/lymphatic complaints Allergic/Immunologic: Allergic/Immunologic: Reports no additional allergic/immunologic complaints [facility] Past Medical History Medical History Chronic back pain Depression Gout Hypercholesterolemia Hypertension Pericarditis Urinary retention Surgical History Surgical History H/O cervical spine surgery Family History Family History Father Hypertension Mother Hypertension Social History Social History 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
[2020-03-11 11:59] VITALS: BP 120/77; PULSE 75; RESP 14; O2SAT 100
--- NOTE | 2020-03-15 03:03 | ED.GENADULT ---
HPI - General Adult General Chief complaint: Unspecified Stated complaint: R side pain Time Seen by Provider: 03/11/20 10:05 Source: patient and family Mode of arrival: ambulatory Limitations: no limitations History of Present Illness HPI narrative: This gentleman presents with right sided chest pain and states he had been diagnosed with rib fractures recently after a fall. His pain has been ongoing for the last two days he states and has gotten more severe gradually as time has progressed. Location: chest (right side of chest) Radiation: non-radiation Severity: moderate Quality: stabbing Pain Consistency: intermittent Relieving factors: rest Exacerbating factors: other (deep breathing) Associated symptoms: denies other symptoms Related Data Home Medications Medication Instructions Recorded Confirmed gabapentin 300 mg PO BID 12/14/18 03/11/20 ergocalciferol (vitamin D2) 1,250 mcg PO WEEKLY 02/05/20 03/11/20 lisinopril-hydrochlorothiazide 1 tablet PO DAILY 02/05/20 03/11/20 pantoprazole 40 mg PO BID 02/05/20 03/11/20 allopurinol 300 mg PO DAILY 03/11/20 03/11/20 metoprolol succinate 12.5 mg PO DAILY 03/11/20 03/11/20 venlafaxine 150 mg PO DAILY 03/11/20 03/11/20 Allergies Allergy/AdvReac Type Severity Reaction Status Date / Time iohexol AdvReac Anaphylaxis Verified 01/29/19 08:57 [From CONTRAST - CT, XRAY] Review of Systems Constitutional: Constitutional: Reports no additional constitutional complaints Eyes: Eyes: Reports no additional eye complaints ENT: Reports system reviewed and no additional complaints, except as documented Cardiovascular: Cardiovascular: Reports no additional cardiovascular complaints Respiratory: Respiratory: Reports no additional respiratory complaints Gastrointestinal: Gastrointestinal: Reports no additional gastrointestinal complaints Genitourinary: Genitourinary: Reports no additional male genitourinary complaints Musculoskeletal: Musculoskeletal: Reports no additional musculoskeletal complaints Integumentary/Breasts: Skin/Breast: Reports system reviewed and no additional complaints, except as docu Neurologic: Reports system reviewed and no additional complaints, except as documented Psychiatric: Psychiatric: Reports no additional psychiatric complaints Endocrine: Endocrine: Reports no additional endocrine complaints Hematologic/Lymphatic: Hematologic/Lymphatic: Reports no additional hematologic/lymphatic complaints Allergic/Immunologic: Allergic/Immunologic: Reports no additional allergic/immunologic complaints PMFSH Past Medical History Medical History Chronic back pain Depression Gout Hypercholesterolemia Hypertension Pericarditis Urinary retention Surgical History Surgical History H/O cervical spine surgery Family History Family History Father Hypertension Mother Hypertension Social History Social History 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 smoker Alcohol intake: never Substance use: never Additional living arrangements comments: spouse 2017 Additional occupation/education comments: unknown Gender identity (if verbalized by the patient): Male Spiritual care concerns: No Exam Const: General: alert and awake Nutritional Appearance: average body habitus and well nourished Orientation/consciousness: oriented to person, oriented to place and oriented to time Limitations: no limitations HENMT: Head: normal to inspection and normocephalic Ears: hearing grossly normal bilaterally and TM's normal bilaterally General nose exam: Normal external nose present and Normal nasal mucous membranes and turbinates present Face and sinus: normal facial e
== END 2020-03-11 12:01 | disposition home or self-care (01) ==
PROVIDERS: Emergency Provider Emergency Medicine; PCP Emergency Medicine
DX: R07.89 Other chest pain (principal); R11.2 Nausea with vomiting, unspecified
CPT/HCPCS: 36415; 71250; 74176; 80053; 83605; 83690; 85025; 96372; 99283; 99284; A9270; J1885

== ENCOUNTER 2020-11-18 19:09 | Outpatient (CLI) | payer BC, SELFPAY ==
[2020-11-18 20:08] LABS: Anion Gap 10 mmol/L (8-16); Blood Urea Nitrogen 21 mg/dL (7-18); Calcium 9.3 mg/dL (8.5-10.1); Carbon Dioxide 29 mmol/L (21-32); Chloride 106 mmol/L (98-108); Estimated Glomerular Filt Rate > 60; Glucose 110 mg/dL (70-99); Osmolality Calculated 304 mOsm/kg (285-295); Potassium 4.3 mmol/L (3.5-5.1); Sodium 145 mmol/L (136-145)
== END 2020-11-18 19:10 | disposition home or self-care (01) ==
LOC: CHSLAB 19:11
PROVIDERS: PCP Family Medicine; Visit Provider Family Medicine
DX: N17.9 Acute kidney failure, unspecified (principal)
CPT/HCPCS: 36415; 80048

== ENCOUNTER 2021-01-13 17:35 | Emergency (ER) | payer BC, SELFPAY ==
[2021-01-13 17:51] VITALS: BP 120/66; PULSE 72; RESP 18; TEMP 37; O2SAT 99
--- NOTE | 2021-01-13 17:59 | ED.EAR ---
HPI - Ear Problem General Chief complaint: Ear Stated complaint: trouble hearing in Rt ear Time Seen by Provider: 01/13/21 17:59 Source: patient Mode of arrival: ambulatory Limitations: no limitations History of Present Illness HPI Narrative: 50-year-old male with a history of hypertension acute kidney injury, chronic low back pain, gout, dyslipidemia, urinary retention presents to the ER with -- right ear pain with decreased hearing for past 1 day. MD Complaint: ear pain and decreased hearing Location: right ear Duration: constant Severity: mild Relieving factors: nothing Exacerbating factors: nothing Discharge from ear: Reports no Associated symptoms ear: other ( No other symptoms.) Treatment prior to arrival: none Related Data Home Medications Medication Instructions Recorded Confirmed gabapentin 300 mg PO BID 12/14/18 01/13/21 ergocalciferol (vitamin D2) 1,250 mcg PO WEEKLY 02/05/20 01/13/21 lisinopril-hydrochlorothiazide 1 tablet PO DAILY 02/05/20 01/13/21 pantoprazole 40 mg PO BID 02/05/20 01/13/21 allopurinol 300 mg PO DAILY 03/11/20 01/13/21 metoprolol succinate 12.5 mg PO DAILY 03/11/20 01/13/21 venlafaxine 150 mg PO DAILY 03/11/20 01/13/21 Allergies Allergy/AdvReac Type Severity Reaction Status Date / Time iohexol AdvReac Anaphylaxis Verified 01/29/19 08:57 [From CONTRAST - CT, XRAY] Review of Systems Review of Systems: All systems reviewed & are unremarkable except as noted in HPI and below Constitutional: Constitutional: Reports as per HPI and Reports no additional constitutional complaints Eyes: Eyes: Reports as per HPI and Reports no additional eye complaints ENT: Reports system reviewed and no additional complaints, except as documented, Reports Normal hearing present ( Decreased hearing right ear) and Reports otalgia Cardiovascular: Cardiovascular: Reports as per HPI and Reports no additional cardiovascular complaints Respiratory: Respiratory: Reports as per HPI and Reports no additional respiratory complaints Gastrointestinal: Gastrointestinal: Reports as per HPI and Reports no additional gastrointestinal complaints Genitourinary: Genitourinary: Reports no additional male genitourinary complaints Musculoskeletal: Musculoskeletal: Reports no additional musculoskeletal complaints Integumentary/Breasts: Skin/Breast: Reports system reviewed and no additional complaints, except as docu Neurologic: Reports system reviewed and no additional complaints, except as documented Psychiatric: Psychiatric: Reports no additional psychiatric complaints and Reports as per HPI Endocrine: Endocrine: Reports no additional endocrine complaints and Reports as per HPI Hematologic/Lymphatic: Hematologic/Lymphatic: Reports no additional hematologic/lymphatic complaints and Reports as per HPI Allergic/Immunologic: Allergic/Immunologic: Reports no additional allergic/immunologic complaints and Reports as per HPI [facility] Past Medical History Medical History (Updated 01/13/21 @ 18:37 by Wilmer Murphy MD) Chronic back pain Depression Gout Hypercholesterolemia Hypertension Otitis externa Pericarditis Urinary retention Surgical History Surgical History H/O cervical spine surgery Family History Family History Father Hypertension Mother Hypertension Social History Social History 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
[2021-01-13 18:39] VITALS: BP 140/72; PULSE 88; RESP 20; TEMP 36.4; O2SAT 96
== END 2021-01-13 18:44 | disposition home or self-care (01) ==
PROVIDERS: Emergency Provider Internal Medicine Critical Care Medicine; PCP Family Medicine
DX: H61.21 Impacted cerumen, right ear (principal)
CPT/HCPCS: 69209; 99283; A9270

== ENCOUNTER 2023-09-03 21:54 | Emergency (ER) | payer BC, SELFPAY ==
--- NOTE | ~2023-09-03 | XR_ITS ---
EXAMINATION: XR foot LT min 3V DATE: 09/03/2023 22:21 INDICATION: Left foot pain. TECHNIQUE: 4 views of left foot were obtained. COMPARISON: Left foot radiographs 09/18/2016 FINDINGS: Bone alignment is normal. No acute fracture. There is plate-screw fixation of distal fibula . There is a fracture deformity of base of third metatarsal, likely old. There is mild osteoarthritis of first metatarsophalangeal joint and some of the interphalangeal joints and midfoot joints. There are enthesophytes at the posterior and plantar aspects of calcaneal tuberosity. IMPRESSION: 1. Fracture deformity of base of third metatarsal, likely old. 2. Mild polyarticular osteoarthritis. Reviewed, dictated and finalized at location E.
--- NOTE | ~2023-09-03 | XR_ITS ---
EXAMINATION: XR ankle LT min 3V DATE: 09/03/2023 22:22 INDICATION: Left ankle pain. TECHNIQUE: 4 views of left ankle were obtained. COMPARISON: Left ankle radiographs 08/17/2016 FINDINGS: Bone alignment is normal. No acute fracture. There is plate and screw fixation of distal fi bula. The ankle joint space is normal. IMPRESSION: 1. No acute fracture. Reviewed, dictated and finalized at location E. IMPRESSION: 1. No acute fracture.
[2023-09-03 21:54] VITALS: BP 153/98; PULSE 100; RESP 18; TEMP 36.4; O2SAT 100
--- NOTE | 2023-09-03 22:20 | ED.LOWEXIN ---
HPI - Extremity Injury (Lower) General Chief Complaint: Extremity Injury, Lower Stated Complaint: Ankle Pain Time Seen by Provider: 09/03/23 22:02 Source: patient Mode of arrival: ambulatory Limitations: no limitations History of Present Illness HPI Narrative: Patient complaining of left ankle pain for the last 4 weeks. Patient reports twisting his ankle in a pool trying to save his grandchild 4 weeks ago, was seen by his family physician, negative x-ray of the foot and ankle at that time. History of broken ankle with hardware 2 years ago. Patient denies other injuries. Pain worse with weight bearing and movement, better at rest Related Data Home Medications Medication Instructions Recorded Confirmed gabapentin 300 mg capsule 300 mg PO BID 12/14/18 09/03/23 ergocalciferol (vitamin D2) 1,250 1,250 mcg PO WEEKLY 02/05/20 09/03/23 mcg (50,000 unit) capsule lisinopril 20 1 tablet PO DAILY 02/05/20 09/03/23 mg-hydrochlorothiazide 12.5 mg tablet pantoprazole 40 mg tablet,delayed 40 mg PO BID 02/05/20 09/03/23 release allopurinol 300 mg tablet 300 mg PO DAILY 03/11/20 09/03/23 metoprolol succinate 25 mg 12.5 mg PO DAILY 03/11/20 09/03/23 tablet,extended release 24 hr venlafaxine 150 mg tablet,extended 150 mg PO DAILY 03/11/20 09/03/23 release 24 hr Allergies Allergy/AdvReac Type Severity Reaction Status Date / Time iohexol AdvReac Anaphylaxis Verified 07/20/23 14:26 [From CONTRAST - CT, XRAY] Review of Systems Review of Systems: All systems reviewed & are unremarkable except as noted in HPI and below PMFSH Past Medical History Medical History Chronic back pain Depression Gout Hypercholesterolemia Hypertension Otitis externa Pericarditis Urinary retention Surgical History Surgical History H/O cervical spine surgery Family History Family History Father Hypertension Mother Hypertension Social History Social History 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 smoker Alcohol intake: never Alcohol use details: does not drink alcohol Substance use: never Additional living arrangements comments: spouse 2017 Additional occupation/education comments: unknown Gender identity (if verbalized by the patient): Male Spiritual care concerns: No Exam Narrative: General appearance: Well-developed, well-nourished Skin: Normal color Chest and respiratory: Airway patent, no respiratory distress, no accessory muscle use Heart: Regular rate/rhythm Vascular: Normal peripheral pulses, normal capillary refill. 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
--- NOTE | 2023-09-03 22:35 | PC.NURSE ---
regulo wrap to left ankle
== END 2023-09-03 22:35 | disposition home or self-care (01) ==
PROVIDERS: Emergency Provider Emergency Medicine; PCP Family Medicine
DX: S93.402A Sprain of unspecified ligament of left ankle, initial encounter (principal); S96.912A Strain of unspecified muscle and tendon at ankle and foot level, left foot, initial encounter; I10 Essential (primary) hypertension; Z79.899 Other long term (current) drug therapy; X50.0XXA Overexertion from strenuous movement or load, initial encounter; Y92.34 Swimming pool (public) as the place of occurrence of the external cause
CPT/HCPCS: 73610; 73630; 99283

== ENCOUNTER 2023-10-21 13:12 | Emergency (ER) | payer BC, SELFPAY ==
[2023-10-21 13:17] VITALS: BP 187/112; PULSE 89; RESP 18; TEMP 36.5; O2SAT 99
--- NOTE | 2023-10-21 13:52 | ED.GENADULT ---
HPI - General Adult General Chief complaint: Extremity Injury, Lower Stated complaint: right foot numbness Source: patient Mode of arrival: ambulatory Limitations: no limitations History of Present Illness HPI narrative: patient complaining of shooting pain from the right buttock old way down to the right foot, sharp, numbness of the right foot for 3 weeks, was seen by his family physician yesterday and had a prescription of hydrocodone, was seen by ED 5 days ago and was told that he needs MRI. Patient is telling me that he have history of chronic lower back pain, had physical therapy and cortisone injection in the past. Also he had history of neck surgery 3 times. Patient denies any recent trauma, he denies bowel dysfunction, bladder dysfunction, altered sensation, focal weakness, or saddle numbness, Related Data Home Medications Medication Instructions Recorded Confirmed gabapentin 300 mg capsule 300 mg PO BID 12/14/18 10/21/23 lisinopril 20 1 tablet PO DAILY 02/05/20 10/21/23 mg-hydrochlorothiazide 12.5 mg tablet pantoprazole 40 mg tablet,delayed 40 mg PO BID 02/05/20 10/21/23 release allopurinol 300 mg tablet 300 mg PO DAILY 03/11/20 10/21/23 metoprolol succinate 25 mg 12.5 mg PO DAILY 03/11/20 10/21/23 tablet,extended release 24 hr hydrocodone 10 mg-acetaminophen 10 - 325 tablet PO TID 10/21/23 10/21/23 325 mg tablet venlafaxine 75 mg capsule,extended 75 mg PO DAILY 10/21/23 10/21/23 release 24 hr Allergies Allergy/AdvReac Type Severity Reaction Status Date / Time iohexol AdvReac Anaphylaxis Verified 10/21/23 13:27 [From CONTRAST - CT, XRAY] Review of Systems Review of Systems: All systems reviewed & are unremarkable except as noted in HPI and below PMFSH Past Medical History Medical History Chronic back pain Depression Gout Hypercholesterolemia Hypertension Otitis externa Pericarditis Urinary retention Surgical History Surgical History H/O cervical spine surgery Family History Family History Father Hypertension Mother Hypertension Social History Social History 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 smoker Alcohol intake: never Alcohol use details: does not drink alcohol Substance use: never Additional living arrangements comments: spouse 2017 Additional occupation/education comments: unknown Gender identity (if verbalized by the patient): Male Spiritual care concerns: No Exam Narrative: General appearance: Well-developed, well-nourished Skin: Normal color Head: Normocephalic, nontraumatic Eyes: Clear conjunctiva ENT: Oropharynx normal, ears normal, nose normal Neck: Supple, nontender Chest and respiratory: Airway patent, no respiratory distress, no accessory muscle use Heart: Regular rate/rhythm Abdomen: Soft, nontender, no organomegaly, quiet bowel sounds Vascular: Normal peripheral pulses, normal capillary refill. Musculoskeletal: Normal range of motion, nontender back Neurologic: Alert and oriented ?3, right leg raising test is positive Course Vital Signs Vital signs: Vital Signs Oxygen Delivery Room Air 10/21/23 13:12 Temperature 36.5 C 10/21/23 13:17 Pulse Rate 89 10/21/23 13:17 Respiratory Rate 18 10/21/23 13:17 Blood Pressure 187/112 H 10/21/23 13:17 Pulse Oximetry 99 10/21/23 13:17 Oxygen Delivery Room Air 10/21/23 13:17 Med
[2023-10-21] MEDS: dexAMETHasone SOD PHOS INJ 10 MG/ML 1 ML VIAL IM (14:00)
[2023-10-21 14:20] VITALS: BP 130/90; PULSE 62; RESP 16; TEMP 36.6; O2SAT 97
== END 2023-10-21 14:20 | disposition home or self-care (01) ==
LOC: CHSED 13:56
PROVIDERS: Emergency Provider Emergency Medicine; PCP Family Medicine
DX: M54.30 Sciatica, unspecified side (principal); I10 Essential (primary) hypertension; Z79.891 Long term (current) use of opiate analgesic; Z79.899 Other long term (current) drug therapy
CPT/HCPCS: 96372; 99283; J1100

== ENCOUNTER 2024-04-18 14:15 | Emergency (ER) | payer BC, SELFPAY ==
--- NOTE | ~2024-04-18 | CT_ITS ---
EXAMINATION: CT abdomen pelvis wo con DATE: 04/18/2024 16:03 INDICATION: Abdominal pain. TECHNIQUE: Computed tomography (CT) of the abdomen and pelvis was performed without intravenous contr ast. Automated exposure control and iterative reconstruction technique were employed. The dose-length product was 1648.31 mGy-cm. COMPARISON: CT abdomen and pelvis 03/11/2020 FINDINGS: Calcified left lung nodules and calcified left hilar lymph nodes are consistent with old gr anulomatous disease. No pleural effusion. The heart size is normal. There are coronary artery calcifi cations. No pericardial effusion. There is diffuse hepatic steatosis. There are changes of cholecyste ctomy. Calcifications in the spleen are consistent with old granulomatous disease. The pancreas, adre nal glands, and kidneys are normal. There is no urolithiasis. The prostate is moderately enlarged. Th ere are no dilated loops of bowel. The appendix is normal. There is fat stranding at the root of the small bowel mesentery. There are no pathologically enlarged lymph nodes. There is no free intraperito steven fluid. There is mild thoracic and lumbar spondylosis. There are bridging endplate osteophytes at multiple levels in the thoracic spine, consistent with diffuse idiopathic skeletal hyperostosis (DIS H). IMPRESSION: 1. Diffuse hepatic steatosis. 2. 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 Reviewed, dictated and finalized at location B. IMPRESSION: 1. Diffuse hepatic steatosis. 2. Fat stranding at the root of the small bowel mesentery, consistent with noemi a versus inflammation (mesenteric panniculitis).
[2024-04-18 14:15] VITALS: BP 137/92; PULSE 101; RESP 18; TEMP 37.2; O2SAT 95
--- NOTE | 2024-04-18 14:17 | ED_ITS ---
HPI - Nausea/Vomiting/Diarrhea General Chief complaint: Nausea/Vomiting/Diarrhea Stated complaint: N-V-D Time Seen by Provider: 04/18/24 14:16 Source: patient Mode of arrival: ambulatory Limitations: no limitations History of Present Illness HPI Narrative: 53-year-old male with a history gout, dyslipidemia, hypertension, chronic low back pain, neck surgery x2 presents to the ED with a 2 day history of -- nausea with multiple episodes of vomiting -- multiple loose stools no fever or chills. No abdominal pain . Patient's has had similar symptoms MD elicited complaint: nausea, vomiting and diarrhea Onset (ago): day(s) ( 2 days) Description of vomiting: watery Description of diarrhea: watery Associated nausea: Yes Associated abdominal pain: No Exacerbating factors: none Relieving factors: none Associated symptoms: denies other symptoms, nausea/vomiting and decreased urine output Related Data Home Medications ?Medication ?Instructions ?Recorded ?Confirmed ?Last Taken ?Type gabapentin 300 mg capsule 300 mg PO BID 12/14/18 10/21/23 02/05/20 History lisinopril 20 1 tablet PO DAILY 02/05/20 10/21/23 02/05/20 History mg-hydrochlorothiazide 12.5 mg tablet pantoprazole 40 mg tablet,delayed 40 mg PO BID 02/05/20 10/21/23 02/05/20 History release allopurinol 300 mg tablet 300 mg PO DAILY 03/11/20 10/21/23 Unknown History metoprolol succinate 25 mg 12.5 mg PO DAILY 03/11/20 10/21/23 Unknown History tablet,extended release 24 hr hydrocodone 10 mg-acetaminophen 10 - 325 tablet PO TID 10/21/23 10/21/23 Unknown History 325 mg tablet venlafaxine 75 mg capsule,extended 75 mg PO DAILY 10/21/23 10/21/23 Unknown History release 24 hr Allergies Allergy/AdvReac Type Severity Reaction Status Date / Time iohexol (From CONTRAST - CT, AdvReac Anaphylaxis Verified 04/18/24 14:42 XRAY) Review of Systems 2 Review of Systems: All systems reviewed & are unremarkable except as noted in HPI and below PMFSH Past Medical History Medical History Otitis externa Chronic back pain Urinary retention Pericarditis Gout Depression Hypercholesterolemia Hypertension Surgical History Surgical History H/O cervical spine surgery Family History Family History Father Hypertension Mother Hypertension Social History Social History 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 smoker Alcohol intake: never Alcohol use details: does not drink alcohol Substance use: never Additional living arrangements comments: spouse 2017 Additional occupation/education comments: unknown Gender identity (if verbalized by the patient): Male Spiritual care concerns: No Exam 2 Narrative: vitals are stable. Const: General: no acute distress Nutritional Appearance: well nourished Orientation/consciousness: patient oriented x3 Limitations: no limitations HENMT: Head: normal to inspection Ears: external ears normal F regulo/Nose/Sinus: Normal external nose present Face and sinus: normal facial exam Mouth: Yes Normal oral and palatal mucosa present Throat: posterior oropharynx normal Eyes: Conjunctivae: conjunctivae normal Cornea: corneas normal Pupils: E qual, round and reactive pupils present EOM: EOMs intact bilaterally D irect Ophthalmoscopy: no photophobia Neck: Neck: normal visual inspection, no lymphadenopathy and no meningeal signs Chest: Chest palpation & inspection: normal inspection of the chest Resp: Effort & Inspection: normal respiratory effort Auscultation: clear to auscultation bilaterally Cardio: Rate: regular rate Rhythm: regular rhythm GI: GI Palp: Yes Soft to palpation Auscultation: normal bowel sounds O ther: No tenderness/rigidity / rebound. : General: Yes no CVA tenderness Back/Spine/Pelvis: Back: no CVA tenderness Skin: General skin exam: normal color Rashes: no rashes Wounds: no wounds Neuro: General: patient oriented x3, moves all extremities, no meningeal signs, no focal motor deficits and CN's II-XI intact bilaterally Cranial nerves: Yes Nystagmus not present Speech: normal speech Gait exam (Neuro): Normal gait present Extrem: General: normal to inspection and no clubbing, cyanosis or edema Psych: Mental Status: mental status grossly normal Affect: normal affect Attitude: cooperative Course Course Emergency Course: Gastroenteritis with dehydration patient had an elevated white cell count and elevated lactate for which he received 2 L of IV fluids and went on to have a CT of the abdomen and pelvis without contrast. This revealed mesenteric panniculitis. The patient does not have any significant abdominal pain. He does not have any obstructive symptoms at this time. Will hold off any further treatment. If he is symptomatic will have him follow-up with his primary care physician/ surgeon. Vital Signs Vital signs: Vital Signs Temperature 37.2 C 04/18/24 14:15 Pulse Rate 101 H 04/18/24 14:15 Respiratory Rate 18 04/18/24 14:15 Blood Pressure 137/92 H 04/18/24 14:15 Pulse Oximetry 95 04/18/24 14:15 Oxygen Delivery Room Air 04/18/24 14:15 Temperature 37.2 C 04/18/24 14:15 Pulse Rate 101 H 04/18/24 14:15 Respiratory Rate 18 04/18/24 14:15 Blood Pressure 137/92 H 04/18/24 14:15 Pulse Oximetry 95 04/18/24 14:15 Oxygen Delivery Room Air 04/18/24 14:15 MDM - Nausea/Vomiting/Diarrhea MDM Narrative Medical decision making narrative: Gastroenteritis dehydration mesenteric panniculitis Differential Diagnosis Differential diagnosis: Likely traveler's diarrhea Lab Data 04/18/24 14:30 04/18/24 14:30 Labs: Lab Results 04/18/24 04/18/24 Range/Units 14:30 15:09 WBC 16.6 H (4.8-10.8) K/mm3 RBC 5.25 (4.70-6.10) M/mm3 Hgb 17.2 (14.0-18.0) g/dL Hct 51.3 (40.0-54.0) % MCV 97.7 (78.0-102.0) fL MCH 32.8 H (27.0-31.0) pg MCHC 33.5 (32-36) g/dL RDW 13.4 (11.6-14.4) % Plt Count 151 (150-420) K/mm3 MPV 11.0 (8.7-11.0) fl Immature Gran % (Auto) 0.4 H (0.0-0.0) % Neut % (Auto) 92.6 H (50.0-70.0) % Lymph % (Auto) 2.5 L (18.0-42.0) % Armstrong % (Auto) 3.5 (2.0-11.0) % Eos % (Auto) 0.8 L (1.0-6.0) % Baso % (Auto) 0.2 (0.0-1.0) % Lymph # (Auto) 0.42 L (1.10-4.50) K/mm3 Armstrong # (Auto) 0.58 (0.10-0.90) K/mm3 Eos # (Auto) 0.13 (0.02-0.50) K/mm3 Baso # (Auto) 0.03 (0.00-0.10) K/mm3 Abs Immat Gran (auto) 0.06 H (0.00-0.00) K/mm3 Absolute Neuts (auto) 15.33 H (1.70-7.20) K/mm3 Absolute Nucleated RBC 0.00 (0.00-0.00) K/mm3 Nucleated RBC % 0.0 (0-0.0) % Sodium 143 (136-145) mmol/L Potassium 4.2 (3.5-5.1) mmol/L Chloride 107 (98-108) mmol/L Carbon Dioxide 26 (21-32) mmol/L Anion Gap 10 (4-12) mmol/L BUN 16 (7-18) mg/dL Creatinine 1.34 H (0.70-1.30) mg/dL Estim Creat Clear Calc 74 ml/min Estimated GFR 56 L (59 - ) Glucose 177 H (70-99) mg/dL Calculated Osmolality 301 H (285-295) mOsm/kg Lactic Acid 3.3 H (0.4-2.0) mmol/L Calcium 9.0 (8.5-10.1) mg/dL Total Bilirubin 1.0 (0.00-1.00) mg/dL AST 24 (15-37) U/L ALT 42 (16-63) U/L Alkaline Phosphatase 89 (46-116) U/L Total Protein 7.6 (6.4-8.2) g/dL Albumin 4.0 (3.4-5.0) g/dL Lipase 20 (16-77) U/L Urine Color Light yellow (Yellow) Urine Appearance Clear (Clear) Urine pH 6.0 (5.0-8.0) Ur Specific [place] 1.015 (1.010-1.020) Urine Protein Negative (Negative) Urine Glucose (UA) 3+ H (Negative) Urine Ketones Trace H (Negative) Ur Blood (Man) Negative (Negative) Urine Nitrate Negative (Negative) Urine Bilirubin Negative (Negative) Urine Urobilinogen 0.2 (0.2-1.0) mg/dL Ur Leukocyte Esterase Negative (Negative) Influenza A (RT-PCR) Negative (Negative) Influenza B (RT-PCR) Negative (Negative) RSV (RT-PCR) Negative (Negative) SARS-CoV-2 RNA (RT-PCR) Negative (Negative) Discharge Plan Discharge Clinical Impression: Gastroenteritis, Dehydration, Mesenteric panniculitis Patient Disposition: Home, Self-Care Condition: Stable Instructions: Antibiotic Form, Dehydration (ED), Gastroenteritis (ED) Patient Language: Citizen Of [place] Prescriptions: New ondansetron 4 mg tablet,disintegrating 4 mg PO Q8H 4 Days Qty: 12 0RF No Action allopurinol 300 mg tablet 300 mg PO DAILY metoprolol succinate 25 mg tablet extended release 24 hr 12.5 mg PO DAILY venlafaxine 75 mg capsule,extended release 24hr 75 mg PO DAILY hydrocodone-acetaminophen 10-325 mg tablet 10 - 325 tablet PO TID dexamethasone 4 mg tablet 4 mg PO Q8H Qty: 14 0RF gabapentin 300 mg capsule 300 mg PO BID buspirone 15 mg tablet 15 mg PO BID Qty: 0 0RF lisinopril-hydrochlorothiazide 20-12.5 mg tablet 1 tablet PO DAILY pantoprazole 40 mg tablet,delayed release (DR/EC) 40 mg PO BID Follow-up/Referrals: Zahraa,Ori García MD [Primary Care Provider] - Time of Disposition: 16:41
[2024-04-18 14:35] LABS: Basophils Absolute Auto 0.03 K/mm3 (0.00-0.10); Basophils Percent Auto 0.2 % (0.0-1.0); Eosinophils Absolute Auto 0.13 K/mm3 (0.02-0.50); Eosinophils Percent Auto 0.8 % (1.0-6.0); Hematocrit 51.3 % (40.0-54.0); Hemoglobin 17.2 g/dL (14.0-18.0); Immature Granulocyte Absolute 0.06 K/mm3 (0.00-0.00); Immature Granulocyte Percent A 0.4 % (0.0-0.0); Lymphocytes Absolute Auto 0.42 K/mm3 (1.10-4.50); Lymphocytes Percent Auto 2.5 % (18.0-42.0); Mean Corpuscular HGB Conc 33.5 g/dL (32-36); Mean Corpuscular Hemoglobin 32.8 pg (27.0-31.0); Mean Corpuscular Volume 97.7 fL (78.0-102.0); Monocytes Absolute Auto 0.58 K/mm3 (0.10-0.90); Monocytes Percent Auto 3.5 % (2.0-11.0); Neutrophils Absolute Auto 15.33 K/mm3 (1.70-7.20); Neutrophils Percent Auto 92.6 % (50.0-70.0); Platelet Count Result 151 K/mm3 (150-420); Red Blood Count 5.25 M/mm3 (4.70-6.10); Red Cell Distribution Width 13.4 % (11.6-14.4); White Blood Count 16.6 K/mm3 (4.8-10.8)
[2024-04-18] MEDS: LACTATED RINGERS 1,000 ML 999 ML IV CONT ×2 (14:35→15:35)
[2024-04-18] MEDS: PROCHLORPERAZINE EDISYLATE 10 MG/2 ML VIAL IV PUSH (14:35)
[2024-04-18 14:50] LABS: Alanine Aminotransferase 42 U/L (16-63); Alkaline Phosphatase 89 U/L (46-116); Anion Gap 10 mmol/L (4-12); Aspartate Amino Transferase 24 U/L (15-37); Blood Urea Nitrogen 16 mg/dL (7-18); Carbon Dioxide 26 mmol/L (21-32); Chloride 107 mmol/L (98-108); Estimated CRCL calculation 74 ml/min; Estimated Glomerular Filt Rate 56; Glucose 177 mg/dL (70-99); Lipase 20 U/L (16-77); Osmolality Calculated 301 mOsm/kg (285-295); Potassium 4.2 mmol/L (3.5-5.1); Sodium 143 mmol/L (136-145); Total Protein 7.6 g/dL (6.4-8.2)
[2024-04-18 14:53] LABS: Lactic Acid Reflex 3.3 mmol/L (0.4-2.0)
[2024-04-18 15:10] LABS: Influenza A QL RT-PCR Negative (Negative); Influenza B QL RT-PCR Negative (Negative); RSV RNA, RT-PCR Negative (Negative); SARS-CoV-2 RNA PCR Negative (Negative)
[2024-04-18 15:16] VITALS: BP 120/72; O2SAT 95
[2024-04-18 15:21] LABS: Add Urine Microscopic? NO; Appearance Urine Clear (Clear); Bilirubin Urine Negative (Negative); Blood Urine Negative (Negative); Color Urine Light Yellow (Yellow); Glucose Urine UA 3+ (Negative); Ketones Urine Trace (Negative); Leukocyte Esterase Ur Negative (Negative); Nitrate Urine Negative (Negative); Protein Urine Negative (Negative); Specific Grav Ur 1.015 (1.010-1.020); Urobilinogen Urine 0.2 mg/dL (0.2-1.0)
--- NOTE | 2024-04-18 15:37 | PC.NURSE ---
pt up to rr without difficulty.
--- NOTE | 2024-04-18 15:59 | PC.NURSE ---
PT TO CT
--- OUTSIDE RECORDS SUMMARY | 2024-04-18 16:30 | XMS_ITS | Encounter Summary ---
Author Organization [facility] Address [address] [place] [address] Care Team Providers Care Automotive Technician Name Role Phone Ian Couch MD Unavailable Unavailabl Nayeli Mccracken MD Unavailable Unavailabl e Kaylie Sterling APRN BRANCH ADMINISTRATOR-C Unavailable Karma Ding MD, Devin Unavailable [phone] Ori Vitla MD Primary Care Provider [phone] Encounter Details Date Type Department Care Team (Late st Contact Info) Description 10/12/2023 [email or web address] Message [facility] [place] [id number] Jan Fox MD [address] [place] [address] Visit Follow Up Social History Tobacco Use Types Packs/Day Years Used Date Smoking Tobacco: Never Smokeless Tobacco: Never Alcohol Use Standard Drinks/Week Comments No 0 (1 standard drink = 0.6 oz pur e alcohol) Humiliation, Afraid, Rape, and Kick questionnair e Answer Date Recorded Within the last year, have y ou been afraid of your partner or ex-partner? No 12/17/2022 Within the last year, have y ou been humiliated or emotionally abused in other ways by your partner or ex-partner? No Within the last year, have y ou been kicked, hit, slapped, or otherwise physically hurt by your partner or ex-partner? No 12/17/2022 Within the last year, have y ou been raped or forced to have any kind of sexual activity by your partner or ex-partner? No 12/17/2022 Overall Financial Resource Strain (CARDIA) Answe r Date Recorded How hard is it for you to pa y for the very basics like food, housing, medical care, and heating? Not hard at all 12/17/2022 Hunger Vital Sign Answer Date Recorded Within the past 12 months, y ou worried that your food would run out before you got the money to buy more. Never true 12/18/19 23 Within the past 12 months, t he food you bought just didn't last and you didn't have money to get more. Never true 12/17/2022 PRAPARE - Transportation Answer Date Re corded In the past 12 months, has l ack of transportation kept you from medical appointments or from getting medications? No 12/08 In the past 12 months, has l ack of transportation kept you from meetings, work, or from getting things needed for daily living? No 12/17/2022 Housing Stability Vital Sign Answer Scott e Recorded In the last 12 months, was t here a time when you were not able to pay the mortgage or rent on time? No 12/17/2022 In the last 12 months, how many places have you lived? 1 12/17/2022 In the last 12 months, was t here a time when you did not have a steady place to sleep or slept in a correction (including now)? No 12/17/2022 Sex and Gender Information Value Date Recorded Sex Assigned at Not on file Legal Sex Male 10:39 PM CDT Gender Identity Not on file Sexual Orientation Not on file documented as of this encounter Functional Status * Are you deaf or do you have serious difficulty hearing Answer Date of Assessment Author Status No 12/17/2022 1:00 PM Tiffanie Olivares RN Active * Are you blind or do you have serious difficulty seeing, even when wearing glasses? Answer Date of Assessment Author Status No 12/17/2022 1:00 PM Tiffanie Olivares RN Active * Do you have serious difficulty walking or climbing stairs? Answer Date of Assessment Author Status Yes 12/17/2022 1:00 PM Tiffanie Olivares RN Active * Do you have difficulty dressing or bathing? Answer Date of Assessment Author Status No 12/17/2022 1:00 PM Tiffanie Olivares RN Active * Because of a physical, mental, or emotional condition, do you have difficulty doing errands alone such as visiting a doctor's office or shopping? Answer Date of Assessment Author Status No 12/17/2022 1:00 PM Tiffanie Olivares RN Active documented as of this encounter Mental Status * Because of a physical, mental, or emotional condition, do you have serious difficulty concentrating, remembering, or making decisions? Answer Entry Date Author Status No 12/17/2022 1:00 PM Tiffanie Olivares RN Active documented in this encounter Plan of Treatment Not on file documented as of this encounter Goals Goal Patient Goal Type Associated Problems Recent Progress Patient-Stated? Author Monitor - able to maintain pain control General No Annabella Zapata RN Consistently take medications as Prescribed General No Annabella Zapata RN Patient will return to prior living situation and remain independent in ADLs upon discharge from hospital Lifestyle Yes Kaycee Woods RN Safety Patient/family will have appropriate support at home upon discharge Lifestyle Yes Kaycee Woods RN Family - family caregiver with be involved in care transitions and discharge planning Lifestyle Yes Kaycee Woods RN documented as of this encounter Visit Diagnoses Not on filedocumented in this encounter Care Teams Automotive Technician Relationship Specialty Start Date End Date Ori Vital MD [facility] DEPT OF SURGERY - NEUROSURGERY [address] [address] [place], [place] [address] PCP - General FAMILY PRACTICE 04/09/22 Ian Couch MD [place] Electronic Drafter CARDIOVASCULAR DISEASE 09/19/17 Nayeli Bennett MD Consulting Physician CARDIOVASCULAR DISEASE 03/28/20 Kaylie Sterling, FINANCIAL ECONOMIST, BRANCH ADMINISTRATOR-C [address] [facility] [address] [place] [address] NURSE PRACTITIONER 08/05/[address] [facility] DEPT OF SURGERY - NEUROSURGERY [address] [address] [place] [address] NEUROLOGICAL SURGERY 08/21/20 documented as of this encounter
--- OUTSIDE RECORDS SUMMARY | 2024-04-18 16:30 | XMS_ITS | Clinical Summary ---
Author Organization [facility] Address [address] [place] [address] Care Team Providers Care Restaurant Inspector Name Role Phone Ian Couch MD Unavailable Unavailabl Nayeli Mccracken MD Unavailable Unavailabl Kaylie Stone APRN, MANAGEMENT TRAINER-C Unavailable Karma Ding MD, Devin Unavailable [phone] Mihir Nunez MD Primary Care Provider [phone] Allergies Active Allergy Reactions Criticality Noted Date Comments Iodine Anaphylaxis High 04/21/2020 Medications aspirin EC (ECOTRIN) 81 MG tabletIndications :Anticoagulant Therapy,on hold for surgery Take 1 tablet (81 mg total) by mouth daily. Indications: Anticoagulant Therapy, on hold for surgery Active albuterol sulfate HFA 108 (90 Base) MCG/ACT inhaler Inhale 1 puff into the lungs every 4 (four) hours as needed for Wheezing. 06/22/19 20 Active allopurinol 300 MG tabletIndications :Gout Take 1 tablet (300 mg total) by mouth daily. Indications: Gout 30 tablet 07/05/19 20 Active busPIRone 15 MG tabletIndications :Depression Take 1 tablet (15 mg total) by mouth 2 (two) times daily. Indications: Depression 07/05/19 20 Active cyclobenzaprine 10 MG tabletIndications :muscle spasms Take 1 tablet (10 mg total) by mouth nightly at bedtime. Indications: muscle spasms at bedtime. 08/12/19 21 Active pantoprazole EC 40 MG tabletIndications :Gastroesophageal Reflux Disease Take 1 tablet (40 mg total) by mouth daily. Indications: Gastroesophageal Reflux Disease 08/13/19 21 Active gabapentin 300 MG capsuleIndication s:nerve pain Take 1 capsule (300 mg total) by mouth 3 (three) times daily. Indications: nerve pain Active sertraline (ZOLOFT) 25 MG tablet Take 1 tablet (25 mg total) by mouth daily. 12/01/19 23 Active traZODone (DESYREL) 50 MG tablet Take 1 tablet (50 mg total) by mouth nightly at bedtime. Activ e pramipexole (MIRAPEX) 0.25 MG tablet Take 1 tablet (0.25 mg total) by mouth nightly. Active atorvastatin (LIPITOR) 20 MG tablet Take 1 tablet (20 mg total) by mouth nightly at bedtime. Activ e tamsulosin (FLOMAX) 0.4 MG Cap Take 1 capsule (0.4 mg total) by mouth daily. Active Vitamin D3 (VITAMIN D) 50 mcg tablet Take 1 tablet (50 mcg total) by mouth daily. Active HYDROcodone-aceta minophen (NORCO) 10-325 MG tabletIndications :Chronic Pain Indications: Chronic Pain 1-2 tabs Q 4-6H prn pain 45 tablet 12/20/19 23 Active ondansetron (ZOFRAN-ODT) 4 MG disintegrating tabletIndications :Cholelithiasis Take 1 tablet (4 mg total) by mouth every 6 (six) hours as needed for Nausea. 10 tablet 05/08/19 24 Active Active Problems Problem Noted Date Diagnosed Date Tick bite of abdomen 07/02/2023 Leg fracture 12/17/2022 Tibia/fibula fracture, right, closed, initial en counter 04/09/2022 Overview (04/09/2022): Added automatically from request for surgery [id number] Fracture of shaft of tibia and fibula, closed Aftercare following surgery 01/18/2022 Closed fracture of distal en d of left fibula, unspecified fracture morphology, initial encounter 12/15/2021 PATTI (acute kidney injury) 11/08/2020 Cervical radiculitis 10/01/2020 Headache, migraine 10/13/2017 Medication overuse headache 10/13/2017 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 Chronic daily headache 09/22/2017 Chest pain 09/21/2017 Thoracic neuralgia 06/25/2014 Cervicalgia 06/19/2014 Lumbar radiculopathy 06/19/2014 Hyperlipidemia Hypertension Carotid artery stenosis Gout TIA (transient ischemic attack) Type 2 diabetes mellitus wit h diabetic neuropathy ([facility]) Vitamin D deficiency Encounters Date Type Department Care Team Description 02/20/2024 2:30 PM SOAP MIXER - 02/20/2024 11:59 PM SOAP MIXER Hospital Encounter [facility] [address] [place] [address] Mihir Nunez MD Discharge Disposition: Home or Self Care (Routine Discharge) 02/20/2024 Travel from Last 3 Months Immunizations Name Administration Dates Next Due Fluzone 6 Months+ Quad (0.5 mL Prefilled Syringe ) 12/18/2022,11/08/2020 Family History Medical History Relation Comments Hypertension Father Stroke Sister Relation Status Comments Father Alive Mother Alive Sister Social History Tobacco Use Types Packs/Day Years Used Date Smoking Tobacco: Never Smokeless Tobacco: Never Tobacco Cessation:Counseling Given: Not Answered Alcohol Use Standard Drinks/Week Comments No 0 [...] place to sleep or slept in a [facility]p (including now)? No 12/17/2022 Sex and Gender Information Value Date Recorded Sex Assigned at Not on file Legal Sex Male 10:39 PM CDT Gender Identity Not on file Sexual Orientation Not on file Last Filed Vital Signs Vital Sign Reading Time Taken Comments Blood Pressure 103/54 10/12/2023 1:29 PM CDT Pulse 90 10/12/2023 1:29 PM CDT Temperature 36.6 C (97.8 F) 10/12/2023 11:59 AM CDT Respiratory Rate 18 10/12/2023 11:59 AM CDT Oxygen Saturation 96% 10/12/2023 1:11 PM CDT Inhaled Oxygen Concentration - - Weight 128.1 kg (282 lb 8 oz) 10/12/2023 11:59 A M CDT Height 170.2 cm (5' 7 ) 10/12/2023 11:59 AM CDT Body Mass Index 44.25 10/12/2023 11:59 AM CDT Plan of Treatment Health Maintenance Due Date Last Done Comments ASCVD LDL 1972 ASCVD Statin 1972 Kidney Health Evaluation 1972 Hemoglobin A1C 1972 Lipid Panel 1972 Annual Physical 05/13/1975 Pneumococcal Vaccine: Pediatrics (0 to 5 Years) and At-Risk Patients (6 to 64 Years) (1 of 2 - PCV) 1978 Diabetes: Retinopathy Eye Exam 1990 Hepatitis C 1990 Hepatitis B Vaccines (1 of 3 - 19+ 3-dose series) 05/13/1991 Zoster Vaccines (1 of 2) 2022 COVID-19 Vaccine (3 - season) 2023 08/23/2020, 08/02/2020 Influenza Adult (#1) 2023 12/18/2022, 10/08/2021, 11/08/2020, Additional history exists Colorectal Cancer Screening FIT/FOBT (1 Year) 12/18/2023 12/17/2022 DTaP, Tdap and Td Vaccines (3 - Td or Tdap) 07/15/2030 07/15/2020, 07/16/2015 Meningococcal B Vaccine Aged Out No l onger eligible based on patient's age to complete this topic Meningococcal Vaccine Aged Out No scott gorge eligible based on patient's age to complete this topic RSV Immunizations Under 20 Months Aged Out No longer eligible based on patient's age to complete this topic Goals Goal Patient Goal Type Associated Problems [...] discharge planning Lifestyle Yes Kaycee Woods RN Medical Devices Implanted Type Area Quality Assurance Engineer Device Identifier Shelf Expiration Date Model / Serial / Lot Graft Bone [place] Putty Dbm 1.0ml - [id number] Implanted:Qty: 1 on 10/01/2020 by Deepak Parada MD at [facility] Bone N/A: Spine Cervical [employer] [id number] 07/08/2023 [id number] / [id number] / N/A Cap Naill Itst Sliding Consuelo - [id number] Implanted:Qty: 1 on 12/19/2022 by Geraldo Brady MD at [facility] End Cap Right: Tibia [employer] 06/06/2028 [id number] / / [id number] Plate Medtronic [place] 25mm - [id number] Implanted:Qty: 1 on 10/01/2020 by Deepak Parada MD at [facility] Plate N/A: Spine Cervical [employer] [id number] / / Screw Fixed Medtronic 4.0 X 16mm - [id number] Implanted:Qty: 4 on 10/01/2020 by Deepak Parada MD at [facility] Screw N/A: Spine Cervical [employer] [id number] / / Screw Cortical Consuelo Prox Dist F/T 5.0 X 32.5mm - [id number] Implanted:Qty: 1 on 12/19/2022 by Geraldo Brady MD at [facility] Screw Right: Tibia [employer] 02/22/2032 [id number] / / [id number] Screw Cortical Consuelo Prox Dist F/T 5.0 X 40mm - [id number] Implanted:Qty: 1 on 12/19/2022 by Geraldo Brady MD at [facility] Screw Right: Tibia [employer] 09/29/2032 [id number] / / [id number] Screw Cortical Consuelo F/T 5.0 X 45mm - [id number] Implanted:Qty: 1 on 12/19/2022 by Geraldo Brady MD at [facility] Screw Right: Tibia [employer] 05/24/2032 [id number] / / [id number] Screw Cortical Consuelo Prox Dist F/T 5.0 X 32.5mm - [id number] Implanted:Qty: 1 on 12/19/2022 by Geraldo Brady MD at [facility] Screw Right: Tibia [employer] 09/21/2032 [id number] / / [id number] Agent Hemostatic Surgiflo Thrombin 8 Ml Kit Matrix Steril - Sn/A Implanted:Qty: 1 on 10/01/2020 by Deepak Parada MD at [facility] Sealant N/A: Spine Cervical [employer] 10/07/2021 [id number] / N/A / [id number] Nanolocl Endoskeleton Tc Implant Implanted:Qty: 1 on 10/01/2020 by Deepak Parada MD at [facility] N/A: Spine Cervical [employer] [id number] 02/19/2024 [id number] / N/A / [id number] Plate-4 Hole Distal Lateral Fibula Implanted:Qty: 1 on 12/23/2021 by Real Austin MD at [facility] Left: Ankle [employer] DIV RAJAN CIERRA / / 3.5 X 14mm Locking Screw Implanted:Qty: 4 on 12/23/2021 by Real Austin MD at [facility] Left: Ankle [employer] [id number] / / [id number] 3.5 X 16mm Locking Screw Implanted:Qty: 2 on 12/23/2021 by Real Austin MD at [facility] Left: Ankle [employer] [id number] / / [id number] 3.5 X 12mm Locking Screw Implanted:Qty: 1 on 12/23/2021 by Real Austin MD at [facility] Left: Ankle [employer] [id number] / / [id number] 3.5 X 18mm Nonlocking Screw Implanted:Qty: 1 on 12/23/2021 by Real Austin MD at [facility] Left: Ankle [employer] [id number] / / [id number] 3.5 X 14mm Nonlocking Screw Implanted:Qty: 1 on 12/23/2021 by Real Austin MD at [facility] Left: Ankle [employer] [id number] / / [id number] 10 Hole Distal Medial Tibia Plate Implanted:Qty: 1 on 04/09/2022 by Real Austin MD at [facility] Right: Tibia [id number] / / 3.5x40mm Nl Screw Implanted:Qty: 1 on 04/09/2022 by Real Austin MD at [facility] Right: Tibia [id number] / / 3.5x50mm Nl Screw Implanted:Qty: 1 on 04/09/2022 by Real Austin MD at [facility] Right: Tibia [id number] / / 3.5x30 Mm Nl Screw Implanted:Qty: 1 on 04/09/2022 by Real Austin MD at [facility] Right: Tibia [id number] / / 3.3x 34mm Nl Screw Implanted:Qty: 1 on 04/09/2022 by Real Austin MD at [facility] Right: Tibia [id number] / / 4.0x26mm Locking Screw Implanted:Qty: 4 on 04/09/2022 by Real Austin MD at [facility] Right: Tibia [id number] / / 4.0x30mm Locking Screw Implanted:Qty: 2 on 04/09/2022 by Real Austin MD at [facility] Right: Tibia [id number] / / 4.0x36mm Locking Screw Implanted:Qty: 1 on 04/09/2022 by Real Austin MD at [facility] Right: Tibia [id number] / / 4.0x46mm Locking Screw Implanted:Qty: 1 on 04/09/2022 by Real Austin MD at [facility] Right: Tibia [id number] / / 4.0x28mm Locking Screw Implanted:Qty: 1 on 04/09/2022 by Real Austin MD at [facility] Right: Tibia [id number] / / Natural Nail System Tibial Nail-Yellow 9.3mm Diameter 32cm Length Implanted:Qty: 1 on 12/19/2022 by Geraldo Brady MD at [facility] Right: Tibia [employer] 12/19/2031 [id number] / / [id number] Explanted Type Area Quality Assurance Engineer Device Identifier Shelf Expiration Date Model / Serial / Lot Drill Bit Medtronic - Sn/A Explanted:Qty: 1 on 10/01/[address] [facility] Drill N/A: Spine Cervical [employer] [id number] 08/13/2025 [id number] / N/A / [id number] Drill Bit Consuelo 4.3 - [id number] Explanted:Qty: 2 on 12/19/2022 by Geraldo Brady MD at [facility] Drill Right: Tibia [employer] [id number] / / Drill Bit Consuelo Tib/Hum Irineo 4.3mm - [id number] Explanted:Qty: 1 on 12/19/2022 by Geraldo Brady MD at [facility] Drill Right: Tibia [employer] [id number] / / Pin Distraction Medline 12mm - Sn/A Explanted:Qty: 2 on 10/01/[address] [facility] Pin N/A: Spine Cervical [employer] [id number] / N/A / [id number] Pin Consuelo 3.0mm Threaded - [id number] Explanted:Qty: 1 on 12/19/2022 by Geraldo Brady MD at [facility] Pin Right: Tib[employer] [id number] / / Pin Fixation 2mm Tibial - [id number] Explanted:Qty: 1 on 12/19/[address] [facility] Pin Right: Tib[employer] [id number] / / Drill Bit 2.6mm X 135mm Explanted:Qty: 1 on 12/23/2021 by Real Austin MD at [facility] Left: Ankle [employer] - DIV RAJ[employer]RA [id number] / / [id number] Drill Bit Explanted:Qty: 1 on 04/09/2022 by Real Austin MD at [facility] Right: Tibia [id number] / / 2.5x216 Mm Drill Bit Explanted:Qty: 1 on 04/09/2022 by Real Austin MD at [facility] Right: Tibia [id number] / / K-Wire 2.0mm Explanted:Qty: 1 on 04/09/2022 by Real Austin MD at [facility] Right: Tibia [id number] / / Procedures Procedure Name Priority Date/Time Associated Diagnosis Comments BONE DENSITY/DEXA Routine 02/20/2024 2:5 9 PM SOAP MIXER Pathologic fracture OCCULT BLOOD, FECES STAT 12/17/2022 7 :14 AM SOAP MIXER from Last 3 Months or Most Recently Relevant to Health Maintenance Results * BONE DENSITY/DEXA (02/20/2024 2:59 PM SOAP MIXER) Anatomical Region Laterality Modality Bone Bone Density 02/20/2024 2:59 PM SOAP MIXER Impressions 02/20/2024 3:00 PM SOAP MIXER Impression: Normal BMD. Ordered By: MIHIR NUNEZ Interpreted By: Tera Patterson MD, 02/20/2024 2:59 PM Narrative 02/20/2024 3:00 PM SOAP MIXER [address] [place] [address] Examination: DEXA Bone densitometry 02/20/2024 2:46 PM Clinical history: bone mineral density evaluation. Technique: DEXA bone minimal density evaluation was performed in the AP projection over the lumbar spine and over both hips in the AP projection utilizing standard imaging techniques. Assessment: The BMD measured at the AP spine L1-L4 is 1.128 g/cm2 with a T-score of 0.3 and a Z-Score of 0.7. The BMD measured at the femur total left is 1.137 g/cm2 with a T-score of 0.7 and a Z-Score of 1. Left femoral neck T-score is -0.8. The BMD measured at the femur total right is 1.156 g/cm2 with a T-score of 0.8 and a Z-Score of 1.2. Right femoral neck T-score is -0.5. The 10 year probability of major osteoporotic fracture is 5.7% and hip fracture 0.3%. Recommendations: All patients should ensure an adequate intake of dietary calcium and vitamin D. The NOF recommend adults under the age of 50 need 1000 mg of calcium and 400-800 IU of vitamin D daily. Effective therapy for the prevention and treatment of osteoporosis include biphosphonates. Follow-up: People with diagnosed cases of osteoporosis or at high risk for fracture should have regular bone mineral density test. For patients eligible for Medicare, routine testing is allowed once every 2 years. Testing frequency can be increased to one year for patients who have rapidly progressing disease, those who are receiving or discontinuing medical therapy to restore bone mass, or have additional risk factors. Based on these results, a followup exam is recommended in 2 yrs Procedure Note Tera Patterson MD - 02/20/[address] [place] [address] Examination: DEXA Bone densitometry 02/20/2024 2:46 PM Clinical history: bone mineral density evaluation. Technique: DEXA bone minimal density evaluation was performed in the APprojection over the lumbar spine and over both hips in the AP projectionutilizing standard imaging techniques. Assessment: The BMD measured at the AP spine L1-L4 is 1.128 g/cm2 with a T-score of0.3 and a Z-Score of 0.7. The BMD measured at the femur total left is 1.137 g/cm2 with a T-score of0.7 and a Z-Score of 1. Left femoral neck T-score is -0.8. The BMD measured at the femur total right is 1.156 g/cm2 with a T-score of0.8 and a Z-Score of 1.2. Right femoral neck T-score is -0.5. The 10 year probability of major osteoporotic fracture is 5.7% and hipfracture 0.3%. Recommendations: All patients should ensure an adequate intake of dietary calcium andvitamin D. The NOF recommend adults under the age of 50 need 1000 mg ofcalcium and 400-800 IU of vitamin D daily. Effective therapy for theprevention and treatment of osteoporosis include biphosphonates. Follow-up: People with diagnosed cases of osteoporosis or at high risk for fractureshould have regular bone mineral density test. For [facility], routine testing is allowed once every 2 years. Testing frequencycan be increased to one year for patients who have rapidly progressingdisease, those who are receiving or discontinuing medical therapy torestore bone mass, or have additional risk factors. Based on these results, a followup exam is recommended in 2 yrs Impression: Normal BMD. Ordered By: MIHIR NUNEZ Interpreted By: Tera Patterson MD, 02/20/2024 2:59 PM us Mihir Nunez MD DEXA Final Result * (ABNORMAL) OCCULT BLOOD, FECES (12/17/2022 7:14 AM SOAP MIXER) OCCULT BLOOD FECAL POSITIVE(A ) NEGATIVE 12/17/2022 7:36 AM SOAP MIXER [facility] Comment:2+ STOOL SPECIMEN / Unknown 12/17/2022 7:14 AM SOAP MIXER Juan Avila MD BODY FLUIDS AND STOOLS ORDERABLE S Final Result [facility] [address] [id number], from Last 3 Months or Most Recently Relevant to Health Maintenance Insurance [facility] Advance Directives * Full Code (Latest Code Status on File) Date Activated Date Inactivated Comments 12/17/2022 1:22 PM 12/20/2022 3:56 PM * Full Code Date Activated Date Inactivated Comments 11/08/2020 12:52 AM 11/09/2020 1:38 PM Care Teams Restaurant Inspector Relationship Specialty Start Date End Date Mihir Nunez MD [facility] DEPT OF SURGERY - [place] [address] [place] [place] [address] PCP - General FAMILY PRACTICE 04/09/22 Ian Couch MD [place] Stock Handler CARDIOVASCULAR DISEASE 09/19/17 Nayeli Bennett MD Consulting Physician CARDIOVASCULAR DISEASE 03/28/20 Kaylie Sterling, MANAGER ENGLISH, MANAGEMENT TRAINER-C [address] [place] [address] NURSE PRACTITIONER 08/05/20 Deepak Parada MD [facility] DEPT OF SURGERY - [place] [address] [place] [place] [address] NEUROLOGICAL SURGERY 08/21/20
--- OUTSIDE RECORDS SUMMARY | 2024-04-18 16:30 | XMS_ITS | Encounter Summary ---
Author Organization [facility] Address [facility] [place] [address] Care Team Providers Care Peanut Blancher Name Role Phone Ian Couch MD Unavailable Unavailabl Nayeli Mccracken MD Unavailable Unavailabl Kaylie Stone APRN MOLD INSERT CHANGER-C Unavailable Guanakito Mosher Primary Care Provider [phone] Karma Ding MD, Deepak Unavailable [phone] Ori Vital MD Primary Care Provider [phone] Encounter Details Date Type Department Care Team (Late st Contact Info) Description 12/15/2021 MyChart Message Enc [facility] [address], [facility] [address] [place] [address] Real Austin MD [address] [place] [address] Visit Follow Up Social History Tobacco Use Types Packs/Day Years Used Date Smoking Tobacco: Never Smokeless Tobacco: Never Alcohol Use Standard Drinks/Week Comments No 0 (1 standard drink = 0.6 oz pur e alcohol) Sex and Gender Information Value Date Recorded Sex Assigned at Not on file Legal Sex Male 10:39 PM CDT Gender Identity Not on file Sexual Orientation Not on file COVID-19 Exposure Response Date Recorded In the last 10 days, have yo u been in contact with someone who was confirmed or suspected to have Coronavirus/COVID-19? No / Unsure 12/16/2021 2:55 PM BLASTING HELPER documented as of this encounter Functional Status * RETIRED Are you deaf or do you have serious difficulty hearing Answer Date of Assessment Author Status No 11/08/2020 12:00 AM CDT Acti ve * RETIRED Are you blind or do you have serious difficulty seeing, even when wearing glasses? Answer Date of Assessment Author Status No 11/08/2020 12:00 AM CDT Acti ve * Do you have serious difficulty walking or climbing stairs? Answer Date of Assessment Author Status No 11/08/2020 12:00 AM CDT Akshat Arauz RN Active * Do you have difficulty dressing or bathing? Answer Date of Assessment Author Status No 11/08/2020 12:00 AM JACINTAT Akshat Arauz RN Active * Because of a physical, mental, or emotional condition, do you have difficulty doing errands alone such as visiting a doctor's office or shopping? Answer Date of Assessment Author Status No 11/08/2020 12:00 AM JACINTAT Akshat Arauz RN Active documented as of this encounter Mental Status * Because of a physical, mental, or emotional condition, do you have serious difficulty concentrating, remembering, or making decisions? Answer Entry Date Author Status No 11/08/2020 12:00 AM JACINTAT Akshat Arauz RN Active documented in this encounter Plan of Treatment Not on file documented as of this encounter Goals Goal Patient Goal Type Associated Problems Recent Progress Patient-Stated? Author Monitor - able to maintain pain control General Annabella Taylor RN Consistently take medications as Prescribed General Annabella Taylor RN documented as of this encounter Visit Diagnoses Not on filedocumented in this encounter Additional Health Concerns Infection Onset Date Last Indicated Resolved Time COVID-19 Rule Out 12/17/2022 12/17/2022 12/17/2022 3:35 AM BLASTING HELPER documented as of this encounter Care Teams Peanut Blancher Relationship Specialty [place] [address] [place] [address] PCP - General PHYSICIAN NUT SORTER OPERATOR 08/21/20 04/08/22 Ori Vital MD [facility] DEPT OF SURGERY - [place] [address] [place] [place] [address] PCP - General FAMILY PRACTICE 04/09/22 Ian Couch MD [place] Door Paneler CARDIOVASCULAR DISEASE 09/19/17 Nayeli Bennett MD Consulting Physician CARDIOVASCULAR DISEASE 03/28/20 Kaylie Sterling, DAM TENDER, MOLD INSERT CHANGER-C [address] [facility] [address] [place] [id number] NURSE PRACTITIONER 08/05/20 Deepak Parada MD [facility] DEPT OF SURGERY - [place] [address] [place] [place] [address] NEUROLOGICAL SURGERY 08/21/20 documented as of this encounter
--- OUTSIDE RECORDS SUMMARY | 2024-04-18 16:30 | XMS_ITS | Encounter Summary ---
Author Organization [facility] Address Pending sale to [facility] [place] [address] Care Team Providers Care Industrial Illuminating Engineer Name Role Phone Shivam Rodriguez MD Primary Care Provider [phone] Ian Couch MD Unavailable UnavailNayeli Telles MD Unavailable UnavailKaylie Vanessa APRN, NP-C Unavailable Guanakito Mosher Primary Care Provider [phone] Karma Ding MD, Devin Unavailable [phone] Ori Viatl MD Primary Care Provider [phone] Encounter Details Date Type Department Care Team (Late st Contact Info) Description 12/01/2017 Abstract [facility] Neuroscience [facility] [address] [place] [phone] Christiano El MD [address] [place] [address] Social History Tobacco Use Types Packs/Day Years [...] on file documented as of this encounter Plan of Treatment Not on file documented as of this encounter Visit Diagnoses Not on filedocumented in this encounter Additional Health Concerns Infection Onset Date Last Indicated Resolved Time COVID-19 Rule Out 11/08/2020 11/08/2020 11/08/2020 4:22 PM CDT COVID-19 Rule Out 12/17/2022 12/17/2022 12/17/2022 3:35 AM SKIRT MAKER documented as of this encounter Care Teams Industrial Illuminating Engineer Relationship Specialty Start Date End Date Shivam Rodriguez MD [address] [id number] PCP - General FAMILY PRACTICE 09/19/17 08/20/20 [place] [address] [address] [place] [address] PCP - General PHYSICIAN DATA COMMUNICATIONS SOFTWARE CONSULTANT 08/21/20 04/08/22 Ori Vital MD [facility]OS[facility]ERY [id number] [place] [address] PCP - General FAMILY PRACTICE 04/09/22 Ian Couch MD [address] [phone] [place] Tub Chucker CARDIOVASCULAR DISEASE 09/19/17 Nayeli Bennett MD [address] [place], [place] [phone] Consulting Physician CARDIOVASCULAR DISEASE 03/28/20 Kaylie Sterling, SPONGE PRESS OPERATOR, ROBOTICS TECHNICIAN-C [address] [facility] [address] [place] [phone] NURSE PRACTITIONER 08/05/20 Deepak Parada MD [facility] [place] [address] NEUROLOGICAL SURGERY 08/21/20 documented as of this encounter
--- OUTSIDE RECORDS SUMMARY | 2024-04-18 16:30 | XMS_ITS | Encounter Summary ---
Author Organization [facility] Address [facility] [place] [address] Care Team Providers Care Librarian Specialist Name Role Phone Shivam Rodriguez MD Primary Care Provider [phone] Ian Couch MD Unavailable UnavailNayeli Telles MD Unavailable Unavailabl Kaylie Stone APRN MANAGER OF HOSPITAL-C Unavailable Guanakito Mosher Primary Care Provider [phone] Karma Ding MD, Devin Unavailable [phone] Ori Vital MD Primary Care Provider [phone] Encounter Details Date Type Department Care Team (Late st Contact Info) Description 07/15/2018 Abstract [facility] [address] [place] [address] , Generic ConversionMD Social History Tobacco Use Types Packs/Day Years [...] Rule Out 12/17/2022 12/17/2022 12/17/2022 3:35 AM JEWEL STAKER documented as of this encounter Care Teams Librarian Specialist Relationship Specialty Start Date End Date Shivam Rodriguez MD [address] [id number] PCP - General FAMILY PRACTICE 09/19/17 08/20/20 [place] [address] [place] [address] PCP - General PHYSICIAN GAS APPLIANCE SERVICER HELPER 08/21/20 04/08/22 Ori Vital MD [facility] DEPT OF SURGERY - NEUROSURGERY [id number] [place] [address] PCP - General FAMILY PRACTICE 04/09/22 Ian Couch MD [address] Material Stockkeeper Yard CARDIOVASCULAR DISEASE 09/19/17 Nayeli Bennett MD [address] [phone] Consulting Physician CARDIOVASCULAR DISEASE 03/28/20 Kaylie Sterling, CERTIFIED PERSONAL FINANCE COUNSELOR, MANAGER OF HOSPITAL-C [address] [facility] [address] [place] [address] NURSE PRACTITIONER 08/05/20 Deepak Parada MD [facility] [place] [address] NEUROLOGICAL SURGERY 08/21/20 documented as of this encounter
--- OUTSIDE RECORDS SUMMARY | 2024-04-18 16:30 | XMS_ITS | Encounter Summary ---
Author Organization [facility] Address [facility] [place] [address] Care Team Providers Care Sidewalk Repairer Name Role Phone Ian Couch MD Unavailable Unavailabl Nayeli Mccracken MD Unavailable Unavailabl e Kaylie Sterling APRN SCRAP MATERIALS BUYER-C Unavailable Guanakito Mosher Primary Care Provider [phone] Karma Ding MD, Deepak Unavailable [phone] Ori Vital MD Primary Care Provider [phone] Encounter Details Date Type Department Care Team (Late st Contact Info) Description 11/10/2020 Hospital Follow-up Call [facility] Cardiovascular Care Unit [address] [place] [address] Leora Salgado, RN Social History Tobacco Use Types Packs/Day Years [...] Exposure Response Date Recorded In the last month, have you been in contact with someone who was confirmed or suspected to have Coronavirus / COVID-19? No / Unsure 11/08/2020 12:29 AM CDT documented as of this encounter Functional Status [...] AM JACINTAT Akshat Arauz RN Active * Do you have difficulty dressing or bathing? Answer Date of Assessment Author Status No 11/08/2020 12:00 AM CDT Akshat Arauz RN Active * Because of a physical, mental, or emotional condition, do you have difficulty doing errands alone such as visiting a doctor's office or shopping? Answer Date of Assessment Author Status No 11/08/2020 12:00 AM Akshat Caceres RN Active documented as of this encounter [...] able to maintain pain control General Annabella Taylor, ALEXANDER Consistently take medications as Prescribed General Annabella Taylor RN documented as of this encounter Visit Diagnoses Not on filedocumented in this encounter Additional Health Concerns Infection Onset Date Last Indicated Resolved Time COVID-19 Rule Out 12/17/2022 12/17/2022 12/17/2022 3:35 AM EXECUTIVE CHAIRMAN OF THE BOARD documented as of this encounter Care Teams Sidewalk Repairer Relationship Specialty [place] [address] [address] [place] [address] PCP - General PHYSICIAN LICENSED CLINICIAN 08/21/20 04/08/22 Ori Vital MD [facility] DEPT OF SURGERY - [place] [place] [address] PCP - General FAMILY PRACTICE 04/09/22 Ian Couch MD [place] Hoop Maker CARDIOVASCULAR DISEASE 09/19/17 Nayeli Bennett MD Consulting Physician CARDIOVASCULAR DISEASE 03/28/20 Kaylie Sterling, BARN AND PROPERTY MANAGER, SCRAP MATERIALS BUYER-C [address] [facility] [address] [place] [address] NURSE PRACTITIONER 08/05/20 Deepak Parada MD [facility] DEPT OF SURGERY - [place] [address] [place] [address] NEUROLOGICAL SURGERY 08/21/20 documented as of this encounter
[2024-04-18 16:32] LABS: Reflex Lactic Acid Yes or No Add Lactic
[2024-04-18 16:50] VITALS: BP 126/80; PULSE 96; RESP 18; TEMP 37.1; O2SAT 98
== END 2024-04-18 16:50 | disposition home or self-care (01) ==
PROVIDERS: Emergency Provider Internal Medicine Critical Care Medicine; PCP Family Medicine
DX: K52.9 Noninfective gastroenteritis and colitis, unspecified (principal); E86.0 Dehydration; K65.4 Sclerosing mesenteritis; E78.5 Hyperlipidemia, unspecified; I10 Essential (primary) hypertension; Z20.822 Contact with and (suspected) exposure to COVID-19
CPT/HCPCS: 36415; 74176; 80053; 81003; 83605; 83690; 85025; 87637; 96361; 96374; 99284; J0780; J7120

== ENCOUNTER 2024-07-22 21:51 | Emergency (ER) | payer BC, SELFPAY ==
[2024-07-22 21:51] VITALS: BP 143/86; PULSE 75; RESP 16; TEMP 36.3; O2SAT 98
--- OUTSIDE RECORDS SUMMARY | 2024-07-22 21:53 | XMS_ITS | Encounter Summary ---
Author Organization [facility] Address [facility] [place] [address] Care Team Providers Care Waiter/Waitress Formal Name Role Phone Ian Couch MD Unavailable [phone] Nayeli Bennett MD Unavailable Unavailabl Kaylie Stone APRN MACHINE MAINTENANCE SUPERVISOR-C Unavailable [phone] Guanakito Mosher Primary Care Provider [phone] Karma Ding MD, Deepak Unavailable [phone] Ori Vital MD Primary Care Provider [phone] Encounter Details Date Type Department Care Team (Late st Contact Info) Description 12/15/2021 MyChart Message Enc [facility] [address], [place] [address] Real Austin MD [address] [place] [address] Visit Follow Up Social History Tobacco Use Types Packs/Day Years Used Date Smoking Tobacco: Never Smokeless Tobacco: Never Alcohol Use Standard Drinks/Week Comments No 0 (1 standard drink = 0.6 oz pur e alcohol) Sex and Gender Information Value Date Recorded Sex Assigned at Male 04/27/2024 5:10 PM CDT Legal Sex Male 10:39 PM CDT Gender Identity Male 04/27/2024 5:10 PM CDT Sexual Orientation Not on file COVID-19 Exposure Response Date Recorded In the last 10 days, have yo u been in contact with someone who was confirmed or suspected to have Coronavirus/COVID-19? No / Unsure 12/16/2021 2:55 PM BOARDING HOUSE MANAGER documented as of this encounter Functional Status [...] 12:00 AM CDT Akshat Arauz RN Active documented as of [...] to maintain pain control General Annabella Taylor, RN Consistently take medications as Prescribed General Annabella Taylor RN documented as of this encounter Visit Diagnoses Not on filedocumented in this encounter Additional Health Concerns Infection Onset Date Last Indicated Resolved Time COVID-19 Rule Out 12/17/2022 12/17/2022 12/17/2022 3:35 AM BOARDING HOUSE MANAGER documented as of this encounter Care Teams Waiter/Waitress Formal Relationship Specialty [place] [address] [place] [address] PCP - General PHYSICIAN GYM INSTRUCTOR 08/21/20 04/08/22 Ori Vital MD [facility] DEPT OF SURGERY - [place] [address] [place] [place] [address] PCP - General FAMILY PRACTICE 04/09/22 Ian Couch MD [address] [place] [phone] [place] Sales Administration Manager CARDIOVASCULAR DISEASE 09/19/17 Nayeli Bennett MD [address] [place] [address] Consulting Physician CARDIOVASCULAR DISEASE 03/28/20 Kaylie Sterling, SOIL CHEMIST, MACHINE MAINTENANCE SUPERVISOR-C [address] [facility] [address] [place] [address] NURSE PRACTITIONER 08/05/20 Deepak Parada MD [facility] DEPT OF SURGERY - [place] [address] [place] [place] [address] NEUROLOGICAL SURGERY 08/21/20 documented as of this encounter
--- OUTSIDE RECORDS SUMMARY | 2024-07-22 21:53 | XMS_ITS | Encounter Summary ---
Author Organization [facility] Address [facility] [place] [address] Care Team Providers Care Asp Net C Developer Name Role Phone Shivam Rodriguez MD Primary Care Provider [phone] Ian Couch MD Unavailable [phone] Nayeli Bennett MD Unavailable Unavailmulticare health Kaylie Stone APRN, PRESIDENT FINANCIAL INSTITUTION-C Unavailable Guanakito Mosher Primary Care Provider [phone] Karma Ding MD, Deepak Unavailable [phone] Ori Vital MD Primary Care Provider [phone] Encounter Details Date Type Department Care Team (Late st Contact Info) Description 12/01/2017 Abstract [facility] Neuroscience [facility] [address] [place] [phone] Christiano El MD [address] [place] [address] Social History Tobacco Use Types Packs/Day Years [...] PM CDT Sexual Orientation Not on file documented as of this encounter Plan of Treatment Not on file documented as of this encounter Visit Diagnoses Not on filedocumented in this encounter Additional Health Concerns Infection Onset Date Last Indicated Resolved Time COVID-19 Rule Out 11/08/2020 11/08/2020 11/08/2020 4:22 PM CDT COVID-19 Rule Out 12/17/2022 12/17/2022 12/17/2022 3:35 AM RAIL LAYER documented as of this encounter Care Teams Asp Net C Developer Relationship Specialty Start Date End Date Shivam Rodriguez MD [address] [place] [address] PCP - General FAMILY PRACTICE 09/19/17 08/20/20 [place] [address] [address] [place], [place] [phone] PCP - General PHYSICIAN CROSS TIE MAKER 08/21/20 04/08/22 Ori Vital MD [facility] - NEUROSURGERY [address] [address] [place], [place] [phone] PCP - General FAMILY PRACTICE 04/09/22 Ian Couch MD [address] [place] [address] [place] Hop Picker CARDIOVASCULAR DISEASE 09/19/17 Nayeli Bennett MD [address] [place] [address] Consulting Physician CARDIOVASCULAR DISEASE 03/28/20 Kaylie Sterling APRN, PRESIDENT FINANCIAL INSTITUTION-C [address] [facility] [address] [place] [phone] NURSE PRACTITIONER 08/05/20 Deepak Parada MD [facility] - [place] [address] NEUROLOGICAL SURGERY 08/21/20 documented as of this encounter
--- OUTSIDE RECORDS SUMMARY | 2024-07-22 21:53 | XMS_ITS | Clinical Summary ---
Author Organization [facility] Address [address] [place] [address] Care Team Providers Care Visual Coordinator Name Role Phone Ian Couch MD Unavailable [phone] Nayeli Bennett MD Unavailable Unavailabl e Kaylie Sterling APRN, ELECTRICAL ELECTRONICS ENGINEERS-C Unavailable Karma Ding MD, Deepak Unavailable [phone] Ori Vital MD Primary Care Provider [phone] Allergies Active Allergy Reactions Criticality Noted Date Comments Iodine Anaphylaxis High 04/21/2020 Medications aspirin EC (ECOTRIN) 81 MG tabletIndicatio ns:Anticoagulan t Therapy,on hold for surgery Take 1 tablet (81 mg total) by mouth daily. Indications: Anticoagulant Therapy, on hold for surgery Active albuterol sulfate HFA 108 (90 Base) MCG/ACT inhaler Inhale 1 puff into the lungs every 4 (four) hours as needed for Wheezing. 06/22/19 20 Active allopurinol 300 MG tabletIndicatio ns:Gout Take 1 tablet (300 mg total) by mouth daily. Indications: Gout 30 tablet 07/05/19 20 Active busPIRone 15 MG tabletIndicatio ns:Depression Take 1 tablet (15 mg total) by mouth 2 (two) times daily. Indications: Depression 07/05/19 20 Active cyclobenzaprine 10 MG tabletIndicatio ns:muscle spasms Take 1 tablet (10 mg total) by mouth nightly at bedtime. Indications: muscle spasms at bedtime. 08/12/19 21 Active pantoprazole EC 40 MG tabletIndicatio ns:Gastroesopha geal Reflux Disease Take 1 tablet (40 mg total) by mouth daily. Indications: Gastroesophageal Reflux Disease 08/13/19 21 Active gabapentin 300 MG capsuleIndicati ons:nerve pain Take 1 capsule (300 mg total) [...] (50 mcg total) by mouth daily. Active venlafaxine XR (EFFEXOR-XR) 75 MG 24 hr capsule 04/16/19 25 Active lisinopril (PRINIVIL) 20 MG tablet TAKE 20 MILLIGRAMS ORAL ONCE A DAY 05/30/19 24 Active JARDIANCE 10 MG tablet TAKE 10 MILLIGRAMS ORAL ONCE A DAY 01/30/20 24 Active doxycycline monohydrate 100 MG capsule Take 1 capsule (100 mg total) by mouth 2 (two) times daily. 04/29/19 25 Active pregabalin (LYRICA) 75 MG capsule Take 1 capsule (75 mg total) by mouth 2 (two) times daily. Active HYDROcodone-regulo taminophen (NORCO) 10-325 MG tablet TAKE 1 EACH ORAL NEEDED 3 TIMES A DAY 01/30/20 24 Active oxyCODONE-aceta minophen (PERCOCET) 5-325 MG tabletIndicatio ns:Acute Pain < 3 Day Supply Take 1-2 tablets by mouth every 8 (eight) hours as needed for Pain. Indications: Acute Pain < 3 Day Supply 12 tablet 05/01/19 25 Active Active Problems Problem Noted Date Diagnosed Date Tick bite of abdomen 07/02/2023 Leg fracture 12/17/2022 Tibia/fibula fracture, right, closed, initial en counter 04/09/2022 Overview (04/09/2022): Added automatically from request for surgery [id number] Fracture of shaft of tibia and fibula, [...] 2 diabetes mellitus wit h diabetic neuropathy ([facility]) Vitamin D deficiency Encounters Date Type Department Care Team Description 04/30/2024 7:35 PM CDT - 04/30/2024 8:15 PM CDT Emergency [facility] [address] [place], [place] [address] [address] Nathaniel Xiao MD Groin Pain Discharge Disposition: Home or Self Care (Routine Discharge) 04/30/2024 Travel 04/27/2024 6:09 PM CDT - 04/27/2024 6:12 PM CDT Emergency [facility] [address] Miguelito Pierre DO Groin Pain Discharge Disposition: Left w/o Being Seen 04/27/2024 Travel from Last 3 Months Immunizations Immunization Administration Dates Next Due Fluzone 6 Months+ [...] place to sleep or slept in a mcc (including now)? No 12/17/2022 Sex and Gender Information Value Date Recorded Sex Assigned at Male 04/27/2024 5:10 PM CDT Legal Sex Male 10:39 PM CDT Gender Identity Male 04/27/2024 5:10 PM CDT Sexual Orientation Not on file Last Filed Vital Signs Vital Sign Reading Time Taken Comments Blood Pressure 135/88 04/30/2024 7:55 PM CDT Pulse 88 04/30/2024 7:55 PM CDT Temperature 36.5 C (97.7 F) 04/30/2024 7:55 PM CDT Respiratory Rate 16 04/30/2024 7:55 PM CDT Oxygen Saturation 98% 04/30/2024 7:55 PM CDT Inhaled Oxygen Concentration - - Weight 108.9 kg (240 lb) 04/30/2024 7:45 PM CDT Height 172.7 cm (5' 8) 04/30/2024 7:45 PM CDT Body Mass Index 36.49 04/30/2024 7:45 PM CDT Plan of Treatment Health Maintenance Due Date Last Done Comments ASCVD LDL 1972 ASCVD Statin 1972 Kidney Health Evaluation 1972 Hemoglobin A1C 1972 Lipid Panel 1972 Annual Physical 05/13/1975 Diabetes: Retinopathy Eye Exam 1990 Hepatitis C 1990 Hepatitis B Vaccines (1 of 3 - 19+ 3-dose series) 05/13/1991 Pneumococcal Vaccine: 50+ Years (1 of 2 - PCV) 05/13/1991 Zoster Vaccines (1 of 2) 2022 COVID-19 Vaccine (3 - 2023-2 5 season) 2023 08/23/2020, 08/02/2020 Colorectal Cancer Screening FIT/FOBT (1 Year) 12/18/2023 12/17/2022 DTaP, Tdap and Td Vaccines ( 3 - Td or Tdap) 07/15/2030 07/15/2020, 07/16/2015 Meningococcal B Vaccine Aged Out No l onger eligible based on patient's age to complete this topic Meningococcal Vaccine Aged Out No scott [place] eligible based on patient's age to complete this topic RSV Immunizations Under 20 Months Aged Out No longer eligible b ased on patient's age to complete this topic [...] Woods RN Medical Devices Implanted Type Area Business Analyst Consultant Device Identifier Shelf Expiration Date Model / Serial / Lot Graft Bone Montgomery Putty Dbm 1.0ml - [id number] Implanted:Qty: 1 on 10/01/2020 by Deepak Parada MD at [facility] Bone N/A: Spine Cervical [employer] [id number] 07/08/2023 [id number] / [id number] / N/A Cap Naill Itst Sliding Consuelo - [id number] Implanted:Qty: 1 on 12/19/2022 by Geraldo Brady MD at [facility] End Cap Right: Tibia [employer] 06/06/2028 [id number] / / [id number] Plate Medtronic Venice 25mm - [id number] Implanted:Qty: 1 on 10/01/2020 by Deepak Parada MD at [facility] Plate N/A: Spine Cervical [employer] [id number] / / Screw Fixed Medtronic 4.0 X 16mm - [id number] Implanted:Qty: 4 on 10/01/2020 by Deepak Parada MD at [facility] Screw N/A: Spine Cervical [employer] [id number] / / Screw Cortical Consuelo Prox Dist F/T 5.0 X 32.5mm - [id number] Implanted:Qty: 1 on 12/19/2022 by Geraldo Brady MD at [facility] Screw Right: Tibia [employer] 02/22/2032 [id number] / / [id number] Screw Cortical Consuelo Prox Dist F/T 5.0 X 40mm - [id number] Implanted:Qty: 1 on 12/19/2022 by Geraldo Brady MD at [facility] Screw Right: Tibia [employer] 09/29/2032 [id number] / / [id number] Screw Cortical Consuelo F/T 5.0 X 45mm - [id number] Implanted:Qty: 1 on 12/19/2022 by Geraldo Brady MD at [facility] Screw Right: Tibia [employer] 05/24/2032 [id number] / / [id number] Screw Cortical Consuelo Prox Dist F/T 5.0 X 32.5mm - [id number] Implanted:Qty: 1 on 12/19/2022 by Geraldo Brady MD at [facility] Screw Right: Tibia [employer] 09/21/2032 [id number] / / [id number] Agent Hemostatic Surgiflo Thrombin 8 Ml Kit Matrix Steril - Sn/A Implanted:Qty: 1 on 10/01/2020 by Deepak Parada MD at [facility] Sealant N/A: Spine Cervical [employer] 10/07/2021 [id number] / N/A / [id number] Nanolocl Endoskeleton Tc Implant Implanted:Qty: 1 on 10/01/2020 by Deepak Parada MD at [facility] N/A: Spine Cervical [employer] [id number] 02/19/2024 [id number] / N/A / [id number] Plate-4 Hole Distal Lateral Fibula Implanted:Qty: 1 on 12/23/2021 by Real Austin MD at [facility] Left: Ankle [employer] DIV RAJAN CIERRA / / 3.5 X 14mm Locking Screw Implanted:Qty: 4 on 12/23/2021 by Real Austin MD at [facility] Left: Ankle [employer] [id number] / / [id number] 3.5 X 16mm Locking Screw Implanted:Qty: 2 on 12/23/2021 by Real Austin MD at [facility] Left: Ankle [employer] [id number] / / [id number] 3.5 X 12mm Locking Screw Implanted:Qty: 1 on 12/23/2021 by Real Austin MD at [facility] Left: Ankle [employer] [id number] / / [id number] 3.5 X 18mm Nonlocking Screw Implanted:Qty: 1 on 12/23/2021 by Real Austin MD at [facility] Left: Ankle [employer] [id number] / / [id number] 3.5 X 14mm Nonlocking Screw Implanted:Qty: 1 on 12/23/2021 by Real Austin MD at [facility] Left: Ankle [employer] [id number] / / [id number] 10 Hole Distal Medial Tibia Plate Implanted:Qty: 1 on 04/09/2022 by Real Austin MD at [facility] Right: Tibia [id number] / / 3.5x40mm Nl Screw Implanted:Qty: 1 on 04/09/2022 by Real Austin MD at [facility] Right: Tibia [id number] / / 3.5x50mm Nl Screw Implanted:Qty: 1 on 04/09/2022 by Real Austin MD at [facility] Right: Tibia [id number] / / 3.5x30 Mm Nl Screw Implanted:Qty: 1 on 04/09/2022 by Real Austin MD at [facility] Right: Tibia [id number] / / 3.3x 34mm Nl Screw Implanted:Qty: 1 on 04/09/2022 by Real Austin MD at [facility] Right: Tibia [id number] / / 4.0x26mm Locking Screw Implanted:Qty: 4 on 04/09/2022 by Real Austin MD at [facility] Right: Tibia [id number] / / 4.0x30mm Locking Screw Implanted:Qty: 2 on 04/09/2022 by Real Austin MD at [facility] Right: Tibia [id number] / / 4.0x36mm Locking Screw Implanted:Qty: 1 on 04/09/2022 by Real Austin MD at [facility] Right: Tibia [id number] / / 4.0x46mm Locking Screw Implanted:Qty: 1 on 04/09/2022 by Real Austin MD at [facility] Right: Tibia [id number] / / 4.0x28mm Locking Screw Implanted:Qty: 1 on 04/09/2022 by Real Austin MD at [facility] Right: Tibia [id number] / / Natural Nail System Tibial Nail-Yellow 9.3mm Diameter 32cm Length Implanted:Qty: 1 on 12/19/2022 by Geraldo Brady MD at [facility] Right: Tibia [employer] 12/19/2031 [id number] / / [id number] Explanted Type Area Business Analyst Consultant Device Identifier Shelf Expiration Date Model / Serial / Lot Drill Bit Medtronic - Sn/A Explanted:Qty: 1 on 10/01/2020 at [facility] Drill N/A: Spine Cervical [employer] [id number] 08/13/2025 [id number] / N/A / [id number] Drill Bit Consuelo 4.3 - [id number] Explanted:Qty: 2 on 12/19/2022 by Geraldo Brady MD at [facility] Drill Right: Tibia [employer] [id number] / / Drill Bit Consuelo Tib/Hum Irineo 4.3mm - [id number] Explanted:Qty: 1 on 12/19/2022 by Geraldo Brady MD at [facility] Drill Right: Tibia [employer] [id number] / / Pin Distraction Medline 12mm - Sn/A Explanted:Qty: 2 on 10/01/2020 at [facility] Pin N/A: Spine Cervical [employer] [id number] / N/A / [id number] Pin Consuelo 3.0mm Threaded - [id number] Explanted:Qty: 1 on 12/19/2022 by Geraldo Brady MD at [facility] Pin Right: Tibia [employer] [id number] / / Pin Fixation 2mm Tibial - [id number] Explanted:Qty: 1 on 12/19/2022 at [facility] Pin Right: Tib[employer] [id number] / / Drill Bit 2.6mm X 135mm Explanted:Qty: 1 on 12/23/2021 by Real Austin MD at [facility] Left: Ankle [employer] - DIV RAJ[employer]ERRA [id number] / / [id number] Drill Bit Explanted:Qty: 1 on 04/09/2022 by Real Austin MD at [facility] Right: Tibia [id number] / / 2.5x216 Mm Drill Bit Explanted:Qty: 1 on 04/09/2022 by Real Austin MD at [facility] Right: Tibia [id number] / / K-Wire 2.0mm Explanted:Qty: 1 on 04/09/2022 by Real Austin MD at [facility] Right: Tibia [id number] / / Procedures Procedure Name Priority Date/Time Associated Diagnosis Comments OCCULT BLOOD, FECES STAT 12/17/2022 7 :14 AM SCREEN TENDER from Last 3 Months or Most Recently Relevant to Health Maintenance Results * (ABNORMAL) OCCULT BLOOD, FECES (12/17/2022 7:14 AM SCREEN TENDER) OCCULT BLOOD FECAL POSITIVE(A ) NEGATIVE 12/17/2022 7:36 AM SCREEN TENDER [facility] Comment:2+ STOOL SPECIMEN / Unknown 12/17/2022 7:14 AM SCREEN TENDER Juan Avila MD BODY FLUIDS AND STOOLS ORDERABLE S Final Result [facility] [address] [place] [address], from Last 3 Months or Most Recently Relevant to Health Maintenance Insurance Advance Directives * Full Code (Latest Code Status on File) Date Activated Date Inactivated Comments 12/17/2022 1:22 PM 12/20/2022 3:56 PM * Full Code Date Activated Date Inactivated Comments 11/08/2020 12:52 AM 11/09/2020 1:38 PM Care Teams Visual Coordinator Relationship Specialty Start Date End Date Ori Vital MD [facility] DEPT OF SURGERY - NEUROSURGERY [address] [place], [place] [address] PCP - General FAMILY PRACTICE 04/09/22 Ian Couch MD [address] [place] [address] Fisher Electrician Sound CARDIOVASCULAR DISEASE 09/19/17 Nayeli Bennett MD [address] [place] [address] Consulting Physician CARDIOVASCULAR DISEASE 03/28/20 Kaylie Sterling APRN, ELECTRICAL ELECTRONICS ENGINEERS-C [address] [place] [address] [address] [place] [address] NURSE PRACTITIONER 08/05/20 Deepak Parada MD [facility] DEPT OF SURGERY - [place] [address] [place] [place] [address] NEUROLOGICAL SURGERY 08/21/20
--- OUTSIDE RECORDS SUMMARY | 2024-07-22 21:53 | XMS_ITS | Encounter Summary ---
Author Organization [facility] Address [facility] [place] [address] Care Team Providers Care Flower Planter Name Role Phone Ian Couch MD Unavailable [phone] Nayeli Bennett MD Unavailable Unavailabl e Kaylie Sterling APRN, NP-C Unavailable [phone] Karma Ding MD, Deepak Unavailable [phone] Ori Vital MD Primary Care Provider [phone] Encounter Details Date Type Department Care Team (Late st Contact Info) Description 10/12/2023 MyChart Message Enc [facility] [address] [place], [place] [id number] Jan Fox MD Visit Follow Up Social History Tobacco Use [...] place to sleep or slept in a residential (including now)? No 12/17/2022 Sex and Gender [...] 1:00 PM Tiffanie Olivares RN Active * Calculated C-SSRS Risk Score (Lifetime/Recent) Answer Date of Assessment Author Status No Risk Indicated 10/12/2023 11:57 AM Sahra Fonseca RN Active * [place] Suicide Severity Rating Scale (Screener/Recent Self-Report) Question Answer Date of Assessment Author Status 1. Wish to be (Past 1 Month) No 10/12/2023 11:57 AM Chelsea Fonseca RN Act margarita 2. Non-Specific Active Suicidal Thoughts (Past 1 Month) No 10/12/2023 11:57 AM Chelsea Fonseca RN Act margarita 6. Suicidal Behavior (Lifetime) No 10/12/2023 11:57 AM Chelsea Fonseca RN Act margarita documented as of this encounter Mental Status [...] home upon discharge Lifestyle Yes Kaycee Woods private branch exchange repairer - family caregiver with be involved in care transitions and discharge planning Lifestyle Yes Kaycee Woods RN documented as of this encounter Visit Diagnoses Not on filedocumented in this encounter Care Teams Flower Planter Relationship Specialty Start Date End Date Ori Vital MD [facility] DEPT OF SURGERY - [place] [address] [place] [address] PCP - General FAMILY PRACTICE 04/09/22 Ian Couch MD [address] [place] [address] [place] Wire Photo Operator News CARDIOVASCULAR DISEASE 09/19/17 Nayeli Bennett MD [address] [place] [address] Consulting Physician CARDIOVASCULAR DISEASE 03/28/20 Kaylie Sterling APRN, LIFT TEAM TECHNICIAN-C [address] [facility] [address] [place] [address] NURSE PRACTITIONER 08/05/20 Deepak Parada MD [facility] DEPT OF SURGERY - [place] [address] [place] [address] NEUROLOGICAL SURGERY 08/21/20 documented as of this encounter
--- OUTSIDE RECORDS SUMMARY | 2024-07-22 21:53 | XMS_ITS | Encounter Summary ---
Author Organization [facility] Address [facility] [place] [address] Care Team Providers Care Sheet Sewer Name Role Phone Ian Couch MD Unavailable [phone] Nayeli Bennett MD Unavailable Unavailabl Kaylie Stone APRN, MIMEOGRAPHER-C Unavailable Guan[place]ito [place] Primary Care Provider [phone] Karma Ding MD, Deepak Unavailable [phone] Ori Vital MD Primary Care Provider [phone] Encounter Details Date Type Department Care Team (Late st Contact Info) Description 11/10/2020 Hospital Follow-up Call [facility] Cardiovascular Care Unit [address], [place] [address] Leora Salgado RN Social History Tobacco Use Types Packs/Day [...] Rule Out 12/17/2022 12/17/2022 12/17/2022 3:35 AM INCIDENT RESPONSE SPECIALIST documented as of this encounter Care Teams Sheet Sewer Relationship Specialty [place] [address] [address] [place] [address] PCP - General PHYSICIAN SKEIN DYER 08/21/20 04/08/22 Ori Vital MD [facility] DEPT OF SURGERY - [place] [address] PCP - General FAMILY PRACTICE 04/09/22 Ian Couch MD [address] [place] [phone] [place] Sprinkler Worker CARDIOVASCULAR DISEASE 09/19/17 Nayeli Bennett MD [address] [place] [address] Consulting Physician CARDIOVASCULAR DISEASE 03/28/20 Kaylie Sterling APRN, MIMEOGRAPHER-C [address] [facility] [address] [place] [address] NURSE PRACTITIONER 08/05/20 Deepak Parada MD [facility] DEPT OF SURGERY - [place] [address] NEUROLOGICAL SURGERY 08/21/20 documented as of this encounter
--- OUTSIDE RECORDS SUMMARY | 2024-07-22 22:00 | XMS_ITS | Encounter Summary ---
Author Organization [facility] Address [facility] [place] [address] Care Team Providers Care Mail Processing Associate Name Role Phone Shivam Rodriguez MD Primary Care Provider [phone] Ian Couch MD Unavailable [phone] Nayeli Bennett MD Unavailable Unavailabl Kaylie Stone APRN, COTTON BROKER-C Unavailable Guanakito Mosher Primary Care Provider [phone] Karma Ding MD, Deepak Unavailable [phone] Ori Vital MD Primary Care Provider [phone] Encounter Details Date Type Department Care Team (Late st Contact Info) Description 07/15/2018 Abstract [facility] CONVERSION [address] [place] [address] , Generic Conversion, Social History Tobacco Use Types Packs/Day Years [...] Rule Out 12/17/2022 12/17/2022 12/17/2022 3:35 AM POWERHOUSE HELPER documented as of this encounter Care Teams Mail Processing Associate Relationship Specialty Start Date End Date Shivam Rodriguez MD [address] [place] [address] PCP - General FAMILY PRACTICE 09/19/17 08/20/20 [place] [address] [address] [place] [address] PCP - General PHYSICIAN CUSTOMER ADVISOR SPECIALIST 08/21/20 04/08/22 Ori Vital MD [facility] DEPT OF SURGERY - [place] [address] [place] [place] [address] PCP - General FAMILY PRACTICE 04/09/22 Ian Couch MD [address] [place] [address] [place] Sales Service Technician CARDIOVASCULAR DISEASE 09/19/17 Nayeli Bennett MD [address] [place] [address] Consulting Physician CARDIOVASCULAR DISEASE 03/28/20 Kaylie Sterling APRN, COTTON BROKER-C [address] [facility] [address] [place] [address] NURSE PRACTITIONER 08/05/20 Deepak Paraad MD [facility] DEPT OF SURGERY - [place] [address] [place] [address] NEUROLOGICAL SURGERY 08/21/20 documented as of this encounter
[2024-07-22] MEDS: methylPREDNISolone SOD SUCC 40 MG VIAL 80 MG IM (22:16)
[2024-07-22] MEDS: DOXYCYCLINE HYCLATE 100 MG TABLET PO (22:17)
[2024-07-22] MEDS: hydrOXYzine HCL 25 MG TABLET PO (22:17)
--- NOTE | 2024-07-22 22:19 | ED_ITS ---
HPI - Skin/Abscess/Foreign Bdy General Chief complaint: Skin/Abscess/Foreign Body Stated complaint: rash Time Seen by Provider: 07/22/24 21:53 Source: patient Mode of arrival: ambulatory Limitations: no limitations History of Present Illness HPI narrative: Patient is a 54-year-old male with 2 day history of rash on the scalp and on the upper extremities bilaterally. The rashes are small and red and very itchy. He has no other associated symptoms. Does not pick at his skin. Is not on new medication. He did not get into any new allergen. MD complaint: rash Onset (ago): day(s) ( Two) Location: generalized, head, chest, LUE and RUE Severity: moderate Severity scale (1-10): 4 Quality: pruritic Pain Consistency: constant Relieving factors: none Exacerbating factors: none Context: other ( patient has 2 day history of generalized rash on his scalp and bilateral arms with itchy skin) Associated symptoms: denies other symptoms Treatments prior to arrival: none Related Data Home Medications ?Medication ?Instructions ?Recorded ?Confirmed ?Last Taken ?Type gabapentin 300 mg capsule 300 mg PO BID 12/14/18 10/21/23 02/05/20 History lisinopril 20 1 tablet PO DAILY 02/05/20 10/21/23 02/05/20 History mg-hydrochlorothiazide 12.5 mg tablet pantoprazole 40 mg tablet,delayed 40 mg PO BID 02/05/20 10/21/23 02/05/20 History release allopurinol 300 mg tablet 300 mg PO DAILY 03/11/20 10/21/23 Unknown History metoprolol succinate 25 mg 12.5 mg PO DAILY 03/11/20 10/21/23 Unknown History tablet,extended release 24 hr hydrocodone 10 mg-acetaminophen 10 - 325 tablet PO TID 10/21/23 10/21/23 Unknown History 325 mg tablet venlafaxine 75 mg capsule,extended 75 mg PO DAILY 10/21/23 10/21/23 Unknown History release 24 hr Allergies Allergy/AdvReac Type Severity Reaction Status Date / Time iohexol (From CONTRAST - CT, AdvReac Anaphylaxis Verified 07/22/24 21:54 XRAY) Review of Systems Review of Systems: All systems reviewed & are unremarkable except as noted in HPI and below Constitutional: Constitutional: Reports no additional constitutional complaints Eyes: Eyes: Reports no additional eye complaints ENT: Reports system reviewed and no additional complaints, except as documented Cardiovascular: Cardiovascular: Reports no additional cardiovascular complaints Respiratory: Respiratory: Reports no additional respiratory complaints Gastrointestinal: Gastrointestinal: Reports no additional gastrointestinal complaints Genitourinary: Genitourinary: Reports no additional male genitourinary complaints Musculoskeletal: Musculoskeletal: Reports no additional musculoskeletal complaints Integumentary/Breasts: Skin/Breast: Reports system reviewed and no additional complaints, except as docu Neurologic: Reports system reviewed and no additional complaints, except as documented Psychiatric: Psychiatric: Reports no additional psychiatric complaints Endocrine: Endocrine: Reports no additional endocrine complaints Hematologic/Lymphatic: Hematologic/Lymphatic: Reports no additional hematologic/lymphatic complaints Allergic/Immunologic: Allergic/Immunologic: Reports no additional allergic/immunologic complaints PMFSH Past Medical History Medical History Otitis externa Chronic back pain Urinary retention Pericarditis Gout Depression Hypercholesterolemia Hypertension Surgical History Surgical History H/O cervical spine surgery Family History Family History Father Hypertension Mother Hypertension Social History Social History 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 healthy appearing Nutritional Appearance: well nourished Orientation/consciousness: patient oriented x3 HENMT: Head: normal to inspection Ears: external ears normal Face/Nose/Sinus: Normal external nose present Eyes: Conjunctivae: conjunctivae normal Pupils: Equal, round and reactive pupils present EOM: EOMs intact bilaterally Neck: Neck: normal visual inspection Chest: Chest palpation & inspection: normal inspection of the chest Resp: Effort & Inspection: normal respiratory effort and not labored Auscultation: clear to auscultation bilaterally and no crackles Cardio: Rate: regular rate Rhythm: regular rhythm Heart sounds: no murmurs Skin: General skin exam: normal color Rashes: rash noted Wounds: no wounds Other: scalp and bilateral upper extremity have maculopapular rash with occasional grouping and around hair follicle areas with erythema and excoriation Neuro: General: patient oriented x3 Cranial nerves: Yes Nystagmus not present Speech: normal speech Gait exam (Neuro): Normal gait present Extrem: General: normal to inspection Psych: Mental Status: mental status grossly normal Affect: normal affect Attitude: cooperative Course Vital Signs Vital signs: Vital Signs Temperature 36.3 C L 07/22/24 21:51 Pulse Rate 75 07/22/24 21:51 Respiratory Rate 16 07/22/24 21:51 Blood Pressure 143/86 H 07/22/24 21:51 Pulse Oximetry 98 07/22/24 21:51 Oxygen Delivery Room Air 07/22/24 21:51 Temperature 36.3 C L 07/22/24 21:51 Pulse Rate 75 07/22/24 21:51 Respiratory Rate 16 07/22/24 21:51 Blood Pressure 143/86 H 07/22/24 21:51 Pulse Oximetry 98 07/22/24 21:51 Oxygen Delivery Room Air 07/22/24 21:51 MDM - Skin/Abscess/Foreign Bdy MDM Narrative Medical decision making narrative: patient is a 54-year-old male with a generalized rash of his head and bilateral upper extremity for the past 2 days. We will do IM steroids and Atarax and doxycycline. Discharge Plan Discharge Clinical Impression: Folliculitis Allergic reaction Qualifiers: Encounter type: initial encounter Qualified Code(s): T78.40XA - Allergy, unspecified, initial encounter Patient Disposition: Home Condition: Stable Instructions: Antibiotic Form, Contact Dermatitis (ED), Folliculitis (ED) Patient Language: Estonian Prescriptions: New doxycycline monohydrate 100 mg capsule 100 mg PO BID 7 Days Qty: 14 0RF hydroxyzine HCl 25 mg tablet 25 mg PO TID PRN (Reason: itching) Qty: 30 0RF prednisone 20 mg tablet 40 mg PO DAILY 3 Days Qty: 6 0RF No Action allopurinol 300 mg tablet 300 mg PO DAILY metoprolol succinate 25 mg tablet extended release 24 hr 12.5 mg PO DAILY venlafaxine 75 mg capsule,extended release 24hr 75 mg PO DAILY hydrocodone-acetaminophen 10-325 mg tablet 10 - 325 tablet PO TID dexamethasone 4 mg tablet 4 mg PO Q8H Qty: 14 0RF ondansetron 4 mg tablet,disintegrating 4 mg PO Q8H 4 Days Qty: 12 0RF gabapentin 300 mg capsule 300 mg PO BID buspirone 15 mg tablet 15 mg PO BID Qty: 0 0RF lisinopril-hydrochlorothiazide 20-12.5 mg tablet 1 tablet PO DAILY pantoprazole 40 mg tablet,delayed release (DR/EC) 40 mg PO BID Follow-up/Referrals: UNKNOWN,DOCTOR [Primary Care Provider] - Time of Disposition: 22:15
== END 2024-07-22 22:22 | disposition home or self-care (01) ==
PROVIDERS: Emergency Provider Emergency Medicine; PCP Family Medicine
DX: L73.9 Follicular disorder, unspecified (principal); T78.40XA Allergy, unspecified, initial encounter; I10 Essential (primary) hypertension
CPT/HCPCS: 96372; 99283; A9270; J2919

== ENCOUNTER 2024-09-14 14:40 | Emergency (ER) | payer MEDICARE, MEDICAID, SELFPAY ==
[2024-09-14 14:40] VITALS: BP 118/79; PULSE 75; RESP 18; TEMP 36.6; O2SAT 95
--- OUTSIDE RECORDS SUMMARY | 2024-09-14 14:42 | XMS_ITS | Encounter Summary ---
Author Organization [facility] Address [facility] [place] [address] Care Team Providers Care Rn Review Name Role Phone Shivam Rodriguez MD Primary Care Provider [phone] Ian Couch MD Unavailable [phone] Nayeli Bennett MD Un[facility] Kaylie Stone APRN, MARKETING SYSTEMS ANALYST-C Unavailable [phone] Guanakito Mosher Primary Care Provider [phone] Karma Ding MD, Deepak Unavailable [phone] Ori Vital MD Primary Care Provider [phone] Encounter Details Date Type Department Care Team (Late st Contact Info) Description 12/01/2017 Abstract [facility] Neuroscience [facility] [address] [place] [phone] Christiano El MD [address] [place] [id number] Social History Tobacco Use Types Packs/Day Years [...] as of this encounter Plan of Treatment Upcoming Encounters Date Type Department Care Team (Late st Contact Info) Description 09/18/2024 9:30 AM CDT Office Visit [facility] [address] [facility] [address] [place] [address] Kaylah Molina, SILVER SOLUTION MIXER-BC [address] [place] [address] documented as of this encounter Visit Diagnoses Not on filedocumented in this encounter Additional Health Concerns Infection Onset Date Last Indicated Resolved Time COVID-19 Rule Out 11/08/2020 11/08/2020 11/08/2020 4:22 PM CDT COVID-19 Rule Out 12/17/2022 12/17/2022 12/17/2022 3:35 AM WEFT STRAIGHTENER documented as of this encounter Care Teams Rn Review Relationship Specialty Start Date End Date Shivam Rodriguez MD [address] [place] [address] PCP - General FAMILY PRACTICE 09/19/17 08/20/20 [place] [address] [address] [place] [address] PCP - General PHYSICIAN LEAD WELDER 08/21/20 04/08/22 Ori Vital MD [facility] DEPT OF SURGERY [place] [address] PCP - General FAMILY PRACTICE 04/09/22 Ian Couch MD [address] [place] [phone] [facility] Parasitologist CARDIOVASCULAR DISEASE 09/19/17 Nayeli Bennett MD [address] [place] [phone] Consulting Physician CARDIOVASCULAR DISEASE 03/28/20 Kaylie Sterling APRN, MARKETING SYSTEMS ANALYST-C [address] [facility] [address] [place] [address] NURSE PRACTITIONER 08/05/20 Deepak Parada MD [facility] DEPT OF SURGERY - NEUROSURGERY [address] [address] [place] [address] NEUROLOGICAL SURGERY 08/21/20 documented as of this encounter
--- OUTSIDE RECORDS SUMMARY | 2024-09-14 14:42 | XMS_ITS | Encounter Summary ---
Author Organization [facility] Address [facility] [place] [address] Care Team Providers Care Vein Pumper Name Role Phone Ian Couch MD Unavailable [phone] Nayeli Bennett MD Unavailable Unavailabl Kaylie Stone APRN APPLICATION SYSTEMS ENGINEER-C Unavailable Guanakito Mosher Primary Care Provider [phone] Karma Ding MD, Deepak Unavailable [phone] Ori Vital MD Primary Care Provider [phone] Encounter Details Date Type Department Care Team (Late st Contact Info) Description 12/15/2021 MyChart Message Enc [facility] [address], [place] [address] Real Austin MD [address] [place] [address] Visit Follow Up Social History Tobacco Use [...] Coronavirus/COVID-19? No / Unsure 12/16/2021 2:55 PM INSTALLATION ENGINEER documented as of this encounter Functional Status [...] Date Author Status No 11/08/2020 12:00 AM CDT Akshat Arauz RN Active documented in this encounter Plan of Treatment Upcoming Encounters Date Type Department Care Team (Late st Contact Info) Description 09/18/2024 9:30 AM CDT Office Visit [facility] [address] [facility] 1 [place] [address] Kaylah Molina, PROCESS AUTOMATION ENGINEER- [address] [facility] [place] [address] documented as of this encounter Goals Goal Patient Goal Type Associated Problems Recent Progress Patient-Stated? Author Monitor - able to maintain pain control General Annabella Taylor, RN Consistently take medications as Prescribed General Annabella Taylor, RN documented as of this encounter Visit Diagnoses Not on filedocumented in this encounter Additional Health Concerns Infection Onset Date Last Indicated Resolved Time COVID-19 Rule Out 12/17/2022 12/17/2022 12/17/2022 3:35 AM INSTALLATION ENGINEER documented as of this encounter Care Teams Vein Pumper Relationship Specialty [place] [address] [address] [place] [address] PCP - General PHYSICIAN REEL TENDER 08/21/20 04/08/22 Ori Vital MD [facility] DEPT OF SURGERY - [place] [address] PCP - General FAMILY PRACTICE 04/09/22 Ian Couch MD [address] [place] [id number] [place] Inspector Machine Parts CARDIOVASCULAR DISEASE 09/19/17 Nayeli Bennett MD [address] [place] [address] Consulting Physician CARDIOVASCULAR DISEASE 03/28/20 Kaylie Sterling, LAURA, APPLICATION SYSTEMS ENGINEER-C [address] [facility] [address] [place] [address] NURSE PRACTITIONER 08/05/20 Deepak Parada MD [facility] DEPT OF SURGERY - [place] [address] NEUROLOGICAL SURGERY 08/21/20 documented as of this encounter
--- OUTSIDE RECORDS SUMMARY | 2024-09-14 14:42 | XMS_ITS | Encounter Summary ---
Author Organization [facility] Address [facility] [place] [address] Care Team Providers Care Restaurant Shift Supervisor Name Role Phone Shivam Rodriguez MD Primary Care Provider [phone] Ian Couch MD Unavailable [phone] Nayeli Bennett MD Unavailable Unavailabl Kaylie Stone APRN, FOURTH HAND-C Unavailable Guanakito Mosher Primary Care Provider [phone] Karma Ding MD, Deepak Unavailable [phone] Ori Vital MD Primary Care Provider [phone] Encounter Details Date Type Department Care Team (Late Contact Info) Description 07/15/2018 Abstract [facility] [address] [place] [address] , Generic Conversion, Social History Tobacco Use [...] Encounters Date Type Department Care Team (Late Contact Info) Description 09/18/2024 9:30 AM CDT Office Visit [facility] [address] [facility] [address] [place] [address] Kaylah Molina, [facility]- [address] [facility] [place] [address] documented as of this encounter Visit Diagnoses Not on filedocumented in this encounter Additional Health Concerns Infection Onset Date Last Indicated Resolved Time COVID-19 Rule Out 11/08/2020 11/08/2020 11/08/2020 4:22 PM CDT COVID-19 Rule Out 12/17/2022 12/17/2022 12/17/2022 3:35 AM HOSPITAL ADMISSIONS CLERK documented as of this encounter Care Teams Restaurant Shift Supervisor Relationship Specialty Start Date End Date Shivam Rodriguez MD [address] [place] [address] PCP - General FAMILY PRACTICE 09/19/17 08/20/20 [place] [address] [address] [place], [place] [address] PCP - General PHYSICIAN DIVORCE ATTORNEY 08/21/20 04/08/22 Ori Vital MD [facility] DEPT OF SURGERY - NEUROSURGERY [address] [address] [place], [place] [address] PCP - General FAMILY PRACTICE 04/09/22 Ian Couch MD [address] [place] [address] [place]key Smoking Pipes Cleaner CARDIOVASCULAR DISEASE 09/19/17 Nayeli Bennett MD [address] [place] [address] Consulting Physician CARDIOVASCULAR DISEASE 03/28/20 Kaylie Sterling, PIE DOUGH ROLLER, FOURTH HAND-C [address] [place] [address] [address] [place] [address] NURSE PRACTITIONER 08/05/20 Deepak Parada MD [facility] DEPT OF SURGERY - NEUROSURGERY [address] [address] [place] [address] NEUROLOGICAL SURGERY 08/21/20 documented as of this encounter
--- OUTSIDE RECORDS SUMMARY | 2024-09-14 14:42 | XMS_ITS | Encounter Summary ---
Author Organization [facility] Address [facility] [place] [address] Care Team Providers Care Manhole Stripper Name Role Phone Ian Couch MD Unavailable [phone] Nayeli Bennett MD Unavailable Unavailabl Kaylie Stone APRN, DIRECTOR OF GOVERNMENT SALES-C Unavailable Guanakito Mosher Primary Care Provider [phone] Karma Ding MD, Deepak Unavailable [phone] Ori Vital MD Primary Care Provider [phone] Encounter Details Date Type Department Care Team (Late st Contact Info) Description 11/10/2020 Hospital Follow-up Call [facility] Cardiovascular Care Unit [address] [place], [place] [address] Leora Salgado RN Social History Tobacco Use [...] 9:30 AM CDT Office Visit [facility] [address] [address] Kaylah Molina, [facility]-[address] [place] [address] documented as of this encounter Goals Goal [...] Rule Out 12/17/2022 12/17/2022 12/17/2022 3:35 AM PHOTOGRAPHY PROFESSOR documented as of this encounter Care Teams Manhole Stripper Relationship Specialty [place] [address] [address] [place] [address] PCP - General PHYSICIAN FORK LIFT TRUCK OPERATOR 08/21/20 04/08/22 Ori Vital MD [facility] DEPT OF SURGERY - [place] [address] PCP - General FAMILY PRACTICE 04/09/22 Ian Couch MD [address] [place] [address] [place] Switchboard Wire Worker Helper CARDIOVASCULAR DISEASE 09/19/17 Nayeli Bennett MD [address] [place] [phone] Consulting Physician CARDIOVASCULAR DISEASE 03/28/20 Kaylie Sterling, COMPUTER GRAPHIC DESIGNER, DIRECTOR OF GOVERNMENT SALES-C [address] [place] [address] [address] [place] [phone] NURSE PRACTITIONER 08/05/20 Deepak Parada MD [facility] DEPT OF SURGERY - [place] [address] NEUROLOGICAL SURGERY 08/21/20 documented as of this encounter
--- OUTSIDE RECORDS SUMMARY | 2024-09-14 14:43 | XMS_ITS | Encounter Summary ---
Author Organization [facility] Address [facility] [place] [address] Care Team Providers Care Woodwork Teacher Name Role Phone Ian Couch MD Unavailable [phone] Nayeli Bennett MD Unavailable Unavailabl e Kaylie Sterling APRN, NP-C Unavailable Karma Ding MD, Deepak Unavailable [phone] Ori Vital MD Primary Care Provider [phone] Encounter Details Date Type Department Care Team (Late st Contact Info) Description 08/15/2024 [employer] Message Enc [facility] [address] [place] [address] Nichelle Zurita PA [address] [place] [address] Visit Follow Up Social History Tobacco Use [...] place to sleep or slept in a [place] facility (including now)? No 12/17/2022 Sex and Gender [...] Description 09/18/2024 9:30 AM CDT Office Visit [facility] [address] [address] Kaylah Molina, [facility]-[address] [place] [address] documented as of this encounter Goals Goal Patient Goal Type Associated Problems Recent Progress Patient-Stated? Author Monitor - able to maintain pain control General Annabella Taylor RN Consistently take medications as Prescribed General Annabella Taylor RN Patient will return to prior living [...] on filedocumented in this encounter Care Teams Woodwork Teacher Relationship Specialty Start Date End Date Ori Vital MD [facility] DEPT OF SURGERY - [place] [address] PCP - General FAMILY PRACTICE 04/09/22 Ian Couch MD [address] [place] [address] [employer] Musician CARDIOVASCULAR DISEASE 09/19/17 Nayeli Bennett MD [address] [place] [address] Consulting Physician CARDIOVASCULAR DISEASE 03/28/20 Kaylie Sterling, LAURA, RAW MATERIAL HANDLER-C [address] [facility] [address] [place] [address] NURSE PRACTITIONER 08/05/20 Deepak Parada MD [facility] DEPT OF SURGERY - NEUROSURGERY [address] [place], [place] [address] NEUROLOGICAL SURGERY 08/21/20 documented as of this encounter
--- OUTSIDE RECORDS SUMMARY | 2024-09-14 14:43 | XMS_ITS | Clinical Summary ---
Author Organization [facility] Address [address] [place] [address] Care Team Providers Care Membership Advisor Name Role Phone Ian Couch MD Unavailable [phone] Nayeli Bennett MD Unavailable Unavailabl Kaylie Stone APRN BACON SKINNER-C Unavailable Karma Ding MD, Deepak Unavailable [phone] Ori Vital MD Primary Care Provider [phone] Allergies Active Allergy Reactions Criticality Noted Date Comments Iodine Anaphylaxis High 04/21/2020 Medications aspirin EC (ECOTRIN) 81 MG tabletIndicati ons:Anticoagul ant Therapy,on hold for surgery Take 1 tablet (81 mg total) by mouth daily. Indications: Anticoagulant Therapy, on hold for surgery Active albuterol sulfate HFA 108 (90 Base) MCG/ACT inhaler Inhale 1 puff into the lungs every 4 (four) hours as needed for Wheezing. 06/22/19 20 Active allopurinol 300 MG tabletIndicati ons:Gout Take 1 tablet (300 mg total) by mouth daily. Indications: Gout 30 tablet 07/05/19 20 Active busPIRone 15 MG tabletIndicati ons:Depression Take 1 tablet (15 mg total) by mouth 2 (two) times daily. Indications: Depression 07/05/19 20 Active cyclobenzaprin e 10 MG tabletIndicati ons:muscle spasms Take 1 tablet (10 mg total) by mouth nightly at bedtime. Indications: muscle spasms at bedtime. 08/12/19 21 Active pantoprazole EC 40 MG tabletIndicati ons:Gastroesop hageal Reflux Disease Take 1 tablet (40 mg total) by mouth daily. Indications: Gastroesophageal Reflux Disease 08/13/19 21 Active gabapentin 300 MG capsuleIndicat ions:nerve pain Take 1 capsule (300 mg total) [...] (0.25 mg total) by mouth nightly. Active tamsulosin (FLOMAX) 0.4 MG Cap Take 1 [...] ORAL ONCE A DAY 01/30/20 24 Active HYDROcodone-ac etaminophen (NORCO) 10-325 MG tablet TAKE 1 EACH ORAL NEEDED 3 TIMES A DAY 01/30/20 24 Active REPATHA SURECLICK 140 MG/ML injection (PEN) Inject 1 mL (140 mg total) into the skin every 14 (fourteen) days. 07/11/19 25 Active hydrOXYzine (ATARAX) 25 MG tablet Take 1 tablet (25 mg total) by mouth 3 (three) times daily. 07/24/19 25 Active metoprolol succinate ER (TOPROL-XL) 25 MG 24 hr tablet Take 1 tablet (25 mg total) by mouth daily. 01/30/20 24 Active atorvastatin (LIPITOR) 40 MG tablet Take 1 tablet (40 mg total) by mouth nightly at bedtime. at bedtime. 01/12/20 24 Active Active Problems Problem Noted Date Diagnosed Date Tick bite of abdomen 07/02/2023 Leg fracture 12/17/2022 Tibia/fibula fracture, right, closed, initial en counter 04/09/2022 Overview (04/09/2022): Added automatically from request for surgery [id number] Fracture of shaft of tibia and fibula, [...] 2 diabetes mellitus wit h diabetic neuropathy ([facility]) Vitamin D deficiency Encounters Date Type Department Care Team Description 09/13/[address] [address] Kaylah Molina FNP-MONCHO Appointment Request 08/15/2024 8:30 AM CDT Office Visit [address] [address] Nichelle Zurita PA Knee Pain (RIGHT ) 08/15/2024 MyChart Message Enc [address] [address] Nichelle Zurita PA Visit Follow Up 08/15/2024 Travel 08/08/[address] [address] Nichelle Zurita PA Appointment Request from Last 3 Months Immunizations Immunization Administration [...] place to sleep or slept in a group home (including now)? No 12/17/2022 Sex and Gender [...] CDT Inhaled Oxygen Concentration - - Weight 121 kg (266 lb 11.2 oz) 08/15/2024 8:21 A M CDT Height 172.7 cm (5' 8) 08/15/2024 8:21 AM CDT Body Mass Index 40.55 08/15/2024 8:21 AM CDT Plan of Treatment Upcoming Encounters Date Type Department Care Team (Late st Contact Info) Description 09/18/2024 9:30 AM CDT Office Visit [facility] [address] [facility] [address] [place] [address] Kaylah Molina, PROGRAM CLERK- [address] [facility] [place] [address] Health Maintenance Due Date Last Done Comments ASCVD LDL 1972 Kidney Health Evaluation 1972 Hemoglobin A1C [...] Woods RN Medical Devices Implanted Type Area Coating Supervisor Device Identifier Shelf Expiration Date Model / Serial / Lot Graft Bone Taylor Putty Dbm 1.0ml - [id number] Implanted:Qty: 1 on 10/01/2020 by Deepak Parada MD at [facility] Bone N/A: Spine Cervical [employer] [id number] 07/08/2023 [id number] / [id number] / N/A Cap Naill Itst Sliding Consuelo - [id number] Implanted:Qty: 1 on 12/19/2022 by Geraldo Brady MD at [facility] End Cap Right: Tibia [employer] 06/06/2028 [id number] / / [id number] Plate Medtronic [place] 25mm - [id number] Implanted:Qty: 1 on 10/01/2020 by Deepak Parada MD at [facility] Plate N/A: Spine Cervical [employer] [id number] / / Screw Fixed Medtronic 4.0 X 16mm - [id number] Implanted:Qty: 4 on 10/01/2020 by Deepak Parada MD at [facility] Screw N/A: Spine Cervical [employer] [id number] / / Screw Cortical Consuelo Prox Dist F/T 5.0 X 32.5mm - [id number] Implanted:Qty: 1 on 12/19/2022 by Geraldo Brady MD at [facility] Screw Right: Tibia [employer] 02/22/2032 [id number] / / [id number] Screw Cortical Consuelo Prox Dist F/T 5.0 X 40mm - [id number] Implanted:Qty: 1 on 12/19/2022 by Geraldo Brady MD at [facility] Screw Right: Tibia [employer] 09/29/2032 [id number] / / [id number] Screw Cortical Consuelo F/T 5.0 X 45mm - [id number] Implanted:Qty: 1 on 12/19/2022 by Geraldo Brady MD at [facility] Screw Right: Tibia [employer] 05/24/2032 [id number] / / [id number] Screw Cortical Consuelo Prox Dist F/T 5.0 X 32.5mm - [id number] Implanted:Qty: 1 on 12/19/2022 by Geraldo Brady MD at [facility] Screw Right: Tibia [employer] 09/21/2032 [id number] / / [id number] Agent Hemostatic Surgiflo Thrombin 8 Ml Kit Matrix Steril - Sn/A Implanted:Qty: 1 on 10/01/2020 by Deepak Parada MD at [facility] Sealant N/A: Spine Cervical [employer] 10/07/2021 [id number] / N/A / [id number] Nanolocl Endoskeleton Tc Implant Implanted:Qty: 1 on 10/01/2020 by Deepak Parada MD at [facility] N/A: Spine Cervical [employer] [id number] 02/19/2024 [id number] / N/A / [id number] Plate-4 Hole Distal Lateral Fibula Implanted:Qty: 1 on 12/23/2021 by Real Austin MD at [facility] Left: Ankle [employer] RAJAN CIERRA / / 3.5 X 14mm Locking Screw Implanted:Qty: 4 on 12/23/2021 by Real Austin MD at [facility] Left: Ankle [employer] [id number] / / [id number] 3.5 X 16mm Locking Screw Implanted:Qty: 2 on 12/23/2021 by Real Austin MD at [facility] Left: Ankle [employer]RA [id number] / / [id number] 3.5 X 12mm Locking Screw Implanted:Qty: 1 on 12/23/2021 by Real Austin MD at [facility] Left: Ankle [employer] [id number] / / [id number] 3.5 X 18mm Nonlocking Screw Implanted:Qty: 1 on 12/23/2021 by Real Austin MD at [facility] Left: Ankle [employer] [id number] / / [id number] 3.5 X 14mm Nonlocking Screw Implanted:Qty: 1 on 12/23/2021 by Real Austin MD at [facility] Left: Ankle [employer] [id number] / / [id number] 10 Hole Distal Medial Tibia Plate Implanted:Qty: 1 on 04/09/2022 by Real Austin MD at [facility] Right: Tibia [id number] / / 3.5x40mm Nl Screw Implanted:Qty: 1 on 04/09/2022 by Real Austin MD at [facility] Right: Tibia [id number] / / 3.5x50mm Nl Screw Implanted:Qty: 1 on 04/09/2022 by Real Austin MD at [facility] Right: Tibia [id number] / / 3.5x30 Mm Nl Screw Implanted:Qty: 1 on 04/09/2022 by Real Austin MD at [facility] Right: Tibia [id number] / / 3.3x 34mm Nl Screw Implanted:Qty: 1 on 04/09/2022 by Real Austin MD at [facility] Right: Tibia [id number] / / 4.0x26mm Locking Screw Implanted:Qty: 4 on 04/09/2022 by Real Austin MD at [facility] Right: Tibia [id number] / / 4.0x30mm Locking Screw Implanted:Qty: 2 on 04/09/2022 by Real Austin MD at [facility] Right: Tibia [id number] / / 4.0x36mm Locking Screw Implanted:Qty: 1 on 04/09/2022 by Real Austin MD at [facility] Right: Tibia [id number] / / 4.0x46mm Locking Screw Implanted:Qty: 1 on 04/09/2022 by Real Austin MD at [facility] Right: Tibia [id number] / / 4.0x28mm Locking Screw Implanted:Qty: 1 on 04/09/2022 by Real Austin MD at [facility] Right: Tibia [id number] / / Natural Nail System Tibial Nail-Yellow 9.3mm Diameter 32cm Length Implanted:Qty: 1 on 12/19/2022 by Geraldo Brady MD at [facility] Right: Tibia [employer] 12/19/2031 [id number] / / [id number] Explanted Type Area Coating Supervisor Device Identifier Shelf Expiration Date Model / Serial / Lot Drill Bit Medtronic - Sn/A Explanted:Qty: 1 on 10/01/2020 at [facility] Drill N/A: Spine Cervical [employer] [id number] 08/13/2025 [id number] / N/A / [id number] Drill Bit Consuelo 4.3 - [id number] Explanted:Qty: 2 on 12/19/2022 by Geraldo Brady MD at [facility] Drill Right: Tibia [employer] [id number] / / Drill Bit Consuelo Tib/Hum Irineo 4.3mm - [id number] Explanted:Qty: 1 on 12/19/2022 by Geraldo Brady MD at [facility] Drill Right: Tibia [employer] [id number] / / Pin Distraction Medline 12mm - Sn/A Explanted:Qty: 2 on 10/01/2020 at [facility] Pin N/A: Spine Cervical [employer] [id number] / N/A / [id number] Pin Consuelo 3.0mm Threaded - [id number] Explanted:Qty: 1 on 12/19/2022 by Geraldo Brady MD at [facility] Pin Right: Tibia [employer] [id number] / / Pin Fixation 2mm Tibial - [id number] Explanted:Qty: 1 on 12/19/2022 at [facility] Pin Right: Tibia [employer] [id number] / / Drill Bit 2.6mm X 135mm Explanted:Qty: 1 on 12/23/2021 by Real Austin MD at [facility] Left: Ankle [employer] DIV [employer] [id number] / / [id number] Drill Bit Explanted:Qty: 1 on 04/09/2022 by Real Austin MD at [facility] Right: Tibia [id number] / / 2.5x216 Mm Drill Bit Explanted:Qty: 1 on 04/09/2022 by Real Austin MD at [facility] Right: Tibia [id number] / / K-Wire 2.0mm Explanted:Qty: 1 on 04/09/2022 by Real Austin MD at [facility] Right: Tibia [id number] / / Procedures Procedure Name Priority Date/Time Associated Diagnosis Comments OCCULT BLOOD, FECES STAT 12/17/2022 7 :14 AM [employer] from Last 3 Months or Most Recently Relevant to Health Maintenance Results * (ABNORMAL) OCCULT BLOOD, FECES (12/17/2022 7:14 AM [employer]) OCCULT BLOOD FECAL POSITIVE(A ) NEGATIVE 12/17/2022 7:36 AM [employer] [facility] Comment:2+ STOOL SPECIMEN / Unknown 12/17/2022 7:14 AM [employer] Juan Avila MD BODY FLUIDS AND STOOLS ORDERABLE S Final Result [facility] [address] [id number], from Last 3 Months or Most Recently Relevant to Health Maintenance Insurance MEDICAID MEDICAID Advance Directives * Full Code (Latest Code Status on File) Date Activated Date Inactivated Comments 12/17/2022 1:22 PM 12/20/2022 3:56 PM * Full Code Date Activated Date Inactivated Comments 11/08/2020 12:52 AM 11/09/2020 1:38 PM Care Teams Membership Advisor Relationship Specialty Start Date End Date Ori Vital MD [facility] DEPT OF SURGERY - NEUROS[place] [address] [place] [place] [address] PCP - General FAMILY PRACTICE 04/09/22 Ian Couch MD [address] [place] [phone] [place] Client Analyst CARDIOVASCULAR DISEASE 09/19/17 Nayeli Bennett MD [address] [place] [address] Consulting Physician CARDIOVASCULAR DISEASE 03/28/20 Kaylie Sterling, ROLLER SKATES ASSEMBLER, BACON SKINNER-C [address] [facility] [address] [place] [address] NURSE PRACTITIONER 08/05/20 Deepak Parada MD [facility] DEPT OF SURGERY - NEUROSURGERY [address] [address] [place], [place] [address] NEUROLOGICAL SURGERY 08/21/20
--- OUTSIDE RECORDS SUMMARY | 2024-09-14 14:43 | XMS_ITS | Patient Health Record ---
Author Organization [facility] Address [address] [place] [address] Care Team Providers Care Abrasive Wheel Molder Name Role Phone SUMEET OCONNELL Unavailable [phone] Guanakito Mosher Unavailable Unavailable Reason For Referral No Information Medications Medication SIG (Take, Route, Frequency, Duration) Notes Start Date End Date Status Lisinopril-hydroCHLOR Othiazide 20-12.5 ; Duration: -2 *Pick strength-form from Medispan for eRX* 07/15/2020 Active Metoprolol Succinate 25 ; Duration: -2 *Reorder from Medispan for eRx and Interaction Alerts* 07/15/2020 Active Allopurinol 300 MG Oral; Duration: -2 07/15/2020 Active VENLAFAXINE 150 ; Duration: -2 *Reorder from Medispan for eRx and Interaction Alerts* 07/15/2020 Active Gabapentin 300 ; Duration: -2 *Pick strength-f orm from Medispan for eRX* 05/26/2020 Active Medrol (Shaji) 4 ; Duration: -2 *Reorder from Medispan for eRx and Interaction Alerts* 08/06/2020 Active PANTOPRAZOLE 40 ; Duration: -2 *Reorder from Medispan for eRx and Interaction Alerts* 07/15/2020 Active METOPROLOL ER SUCCINATE 25MG TABS ; Duration: -2 *Reorder from Medispan for eRx and Interaction Alerts* 07/15/2020 Active BUSPIRONE 15 ; Duration: -2 *Reorder from Medispan for eRx and Interaction Alerts* 07/15/2020 Active Problems Problem Type SNOMED Code ICD Code Onset Dates Problem Status W/U Status Risk Notes Problem Anxiety disorder (838031516) Anxiety disorder, unspecified (F41.9) 08/07/19 21 Active confirmed Problem Cerebral infarction (073346669) Cerebral infarction, unspecified (I63.9) 08/07/19 21 Active confirmed Problem Achilles bursitis (714654714) Achilles tendinitis, right leg (M76.61) 08/07/19 21 Active confirmed Problem Long-term current use of anticoagulant (641089298) [facility]CI (current) use of anticoagulants (Z79.01) 08/07/19 21 Active confirmed Problem Family history of cancer (227670936) Family history of malignant neoplasm, unspecified (Z80.9) 08/07/19 21 Active confirmed Problem Family history of ischemic heart disease (811903793) Family history of ischemic heart disease and other diseases of the circulatory system (Z82.49) 08/07/19 21 Active confirmed Problem Family history of diabetes mellitus (958443914) Family history of diabetes mellitus (Z83.3) 08/07/19 21 Active confirmed Problem Family history of kidney disease (919145878) Family history of disorders of kidney and ureter (Z84.1) 08/07/19 21 Active confirmed Problem Essential hypertension (13610785) Essential (primary) hypertension (I10) 08/07/19 21 Active confirmed Plan Of Treatment No Information Insurance Providers Payer Name Payer Address Payer Phone Subscriber Number Group Number Insured Name Patient Relationship to Insured Coverage Start Date Coverage End Date [facility] [address] [address] [place] [address] [id number] SUMEET GIFFORD Self - patient is the insured
--- OUTSIDE RECORDS SUMMARY | 2024-09-14 14:43 | XMS_ITS | Encounter Summary ---
Author Organization [facility] Address [facility] access hospital[address] [place] [address] Care Team Providers Care Trouble Locater Name Role Phone Ian Couch MD Unavailable [phone] Nayeli Bennett MD Unavailable Unavailabl e Kaylie Sterling APRN, NP-C Unavailable Karma Ding MD, Deepak Unavailable [phone] Ori Vital MD Primary Care Provider [phone] Encounter Details Date Type Department Care Team (Late st Contact Info) Description 10/12/2023 MyChart Message Enc [facility] [address] [place], [place] [id number] Jan Fox MD Visit Follow Up Social [...] 11:57 AM Sahra Fonseca RN Active * [place] Suicide Severity Rating Scale (Screener/Recent Self-Report) Question [...] Description 09/18/2024 9:30 AM CDT Office Visit [facility] [place] [id number] [facility] [address] [place] [address] Kaylah Molina, PHOTO TUBE ASSEMBLER- [address] [place] [address] [place] [address] documented as of this encounter Goals Goal Patient Goal Type Associated Problems Recent Progress Patient-Stated? Author Monitor - able to maintain pain control General Annabella Taylor RN Consistently take medications as Prescribed General Annabella Taylor, RN Patient will return to prior living situation and remain independent in ADLs upon discharge from hospital Lifestyle Yes Kaycee Woods RN Safety Patient/family will have appropriate support at home upon discharge Lifestyle Yes Kaycee Woods, cook apprentice pastry - family caregiver with be involved in care transitions and discharge planning Lifestyle Yes Kaycee Woods, RN documented as of this encounter Visit Diagnoses Not on filedocumented in this encounter Care Teams Trouble Locater Relationship Specialty Start Date End Date Ori Vital MD [facility] DEPT OF SURGERY - [place] [address] PCP - General FAMILY PRACTICE 04/09/22 Ian Couch MD [address] [place] [phone] [employer] Representative CARDIOVASCULAR DISEASE 09/19/17 Nayeli Bennett MD [address] [place] [phone] Consulting Physician CARDIOVASCULAR DISEASE 03/28/20 Kaylie Sterling APRN, CONTACT LENS LATHE OPERATOR-C [address] [place] [address] [address] [place] [phone] NURSE PRACTITIONER 08/05/20 Deepak Parada MD [facility] DEPT OF SURGERY - [place] [address] NEUROLOGICAL SURGERY 08/21/20 documented as of this encounter
--- OUTSIDE RECORDS SUMMARY | 2024-09-14 14:43 | XMS_ITS | Encounter Summary ---
Author Organization [facility] Address [facility] [place] [address] Care Team Providers Care Tripper Name Role Phone Ian Couch MD Unavailable [phone] Nayeli Bennett MD Unavailable Unavailabl e Kaylie Sterling APRN, NP-Dafne Unavailable [phone] Karma Ding MD, Deepak Unavailable [phone] Ori Vital MD Primary Care Provider [phone] Reason for Visit * Reason Onset Date Comments Appointment Request 09/13/2024 Encounter Details Date Type Department Care Team (Late st Contact Info) Description 09/13/2024 [place] [address] Kaylah Molina, [facility]- [address] [place] [address] Appointment Request Social History Tobacco Use Types Packs/Day Years [...] Author Status Yes 12/17/2022 1:00 PM Tiffanie Olivraes RN Active * Do you have difficulty [...] Olivares RN Active documented in this encounter Progress Notes * Sabrina Iverson LPN - 09/13/2024 3:08 PM CDT Patient notified. * Sabrina Iverson LPN - 09/13/2024 3:00 PM CDT Message left for patient; will discuss knee brace order when he comes to 09/18/2024 appointment withKaylah. * Sabrina Iverson LPN - 09/13/2024 2:59 PM CDT ----- Message from Yani Leos sent at 09/13/2024 2:31 PM CDT ----- Patient called to schedule appointment for RIGHT knee He missed it Tuesday. He also is asking for order for Knee Brace to be sent to [facility]. His call back [phone] documented in this encounter Plan of Treatment Upcoming Encounters Date Type Department Care Team (Late st Contact Info) Description 09/18/2024 9:30 AM CDT Office Visit [facility] [address] [facility] [address] [place] [address] Kaylah Molina, INSULATION BOARD BACK TENDER-BC [address] [place] [address] documented as of this encounter Goals Goal [...] on filedocumented in this encounter Care Teams Tripper Relationship Specialty Start Date End Date Ori Vital MD [facility] DEPT OF SURGERY - NEUROSURGERY [address] [address] [place], [place] [address] PCP - General FAMILY PRACTICE 04/09/22 Ian Couch MD [address] [place] [address] [employer] CARDIOVASCULAR DISEASE 09/19/17 Nayeli Bennett MD [address] [place] [address] Consulting Physician CARDIOVASCULAR DISEASE 03/28/20 Kaylie Sterling APRN, BARK FITTER-C [address] [facility] [address] [place] [phone] NURSE PRACTITIONER 08/05/20 Deepak Parada MD [facility] DEPT OF SURGERY - [place] [address] NEUROLOGICAL SURGERY 08/21/20 documented as of this encounter
--- NOTE | 2024-09-14 14:45 | ED_ITS ---
HPI - Skin/Abscess/Foreign Bdy General Chief complaint: Skin/Abscess/Foreign Body Stated complaint: umbilical bleeding Time Seen by Provider: 09/14/24 14:42 Source: patient Mode of arrival: ambulatory Limitations: no limitations History of Present Illness HPI narrative: patient is a 54-year-old male with an umbilicus bleeding while on aspirin for the past couple of hours. Patient came to the ER for continued bleeding. No trauma to the area. No other complaints. MD complaint: lesion ( Umbilicus) Onset (ago): hour(s) ( 2-3) Location: chest ( umbilicus) Severity: mild Severity scale (1-10): 2 Quality: other ( no pain) Pain Consistency: other ( no pain) Relieving factors: none Exacerbating factors: none Context: other ( patient has umbilical bleeding for the past couple of hours without trauma to the area and he noticed a small abrasion internally) Associated symptoms: denies other symptoms Treatments prior to arrival: none Related Data Home Medications ?Medication ?Instructions ?Recorded ?Confirmed ?Last Taken ?Type gabapentin 300 mg capsule 300 mg PO BID 12/14/18 10/21/23 02/05/20 History lisinopril 20 1 tablet PO DAILY 02/05/20 10/21/23 02/05/20 History mg-hydrochlorothiazide 12.5 mg tablet pantoprazole 40 mg tablet,delayed 40 mg PO BID 02/05/20 10/21/23 02/05/20 History release allopurinol 300 mg tablet 300 mg PO DAILY 03/11/20 10/21/23 Unknown History metoprolol succinate 25 mg 12.5 mg PO DAILY 03/11/20 10/21/23 Unknown History tablet,extended release 24 hr hydrocodone 10 mg-acetaminophen 10 - 325 tablet PO TID 10/21/23 10/21/23 Unknown History 325 mg tablet venlafaxine 75 mg capsule,extended 75 mg PO DAILY 10/21/23 10/21/23 Unknown History release 24 hr Allergies Allergy/AdvReac Type Severity Reaction Status Date / Time iohexol (From CONTRAST - CT, AdvReac Anaphylaxis Verified 09/14/24 14:59 XRAY) Review of Systems Review of Systems: All systems reviewed & are unremarkable except as noted in HPI and below Constitutional: Constitutional: Reports no additional constitutional complaints Eyes: Eyes: Reports no additional eye complaints ENT: Reports system reviewed and no additional complaints, except as documented Cardiovascular: Cardiovascular: Reports no additional cardiovascular complaints Respiratory: Respiratory: Reports no additional respiratory complaints Gastrointestinal: Gastrointestinal: Reports no additional gastrointestinal complaints Genitourinary: Genitourinary: Reports no additional male genitourinary complaints Musculoskeletal: Musculoskeletal: Reports no additional musculoskeletal complaints Integumentary/Breasts: Skin/Breast: Reports system reviewed and no additional complaints, except as docu Neurologic: Reports system reviewed and no additional complaints, except as documented Psychiatric: Psychiatric: Reports no additional psychiatric complaints Endocrine: Endocrine: Reports no additional endocrine complaints Hematologic/Lymphatic: Hematologic/Lymphatic: Reports no additional hematologic/lymphatic complaints Allergic/Immunologic: Allergic/Immunologic: Reports no additional allergic/immunologic complaints PMFSH Past Medical History Medical History Otitis externa Chronic back pain Urinary retention Pericarditis Gout Depression Hypercholesterolemia Hypertension Surgical History Surgical History H/O cervical spine surgery Family History Family History Father Hypertension Mother Hypertension Social History Social History 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 healthy appearing Nutritional Appearance: well nourished Orientation/consciousness: patient oriented x3 Limitations: no limitations HENMT: Head: normal to inspection Ears: external ears normal Face/Nose/Sinus: Normal external nose present Eyes: Conjunctivae: conjunctivae normal Pupils: Equal, round and reactive pupils present EOM: EOMs intact bilaterally Neck: Neck: normal visual inspection Chest: Chest palpation & inspection: normal inspection of the chest Resp: Effort & Inspection: normal respiratory effort and not labored Auscultation: clear to auscultation bilaterally and no crackles Cardio: Rate: regular rate Rhythm: regular rhythm Heart sounds: no murmurs GI: Inspection: non-distended GI Palp: Yes Soft to palpation and No Tenderness to palpation present (GI) Auscultation: normal bowel sounds Other: umbilicus has dry blood around the area without localized erythema however inside the umbilicus has an irritated area of abrasion /irritation with bleeding : General: Yes bladder normal to palpation Back/Spine/Pelvis: Back: no CVA tenderness Skin: General skin exam: normal color Rashes: no rashes Wounds: no wounds Other: see GI exam Neuro: General: patient oriented x3 Cranial nerves: Yes Nystagmus not present Speech: normal speech Gait exam (Neuro): Normal gait present Extrem: General: normal to inspection Psych: Mental Status: mental status grossly normal Affect: normal affect Attitude: cooperative Course Vital Signs Vital signs: Vital Signs Temperature 36.6 C 09/14/24 14:40 Pulse Rate 75 09/14/24 14:40 Respiratory Rate 18 09/14/24 14:40 Blood Pressure 118/79 09/14/24 14:40 Pulse Oximetry 95 09/14/24 14:40 Oxygen Delivery Room Air 09/14/24 14:40 Temperature 36.6 C 09/14/24 14:40 Pulse Rate 75 09/14/24 14:40 Respiratory Rate 18 09/14/24 14:40 Blood Pressure 118/79 09/14/24 14:40 Pulse Oximetry 95 09/14/24 14:40 Oxygen Delivery Room Air 09/14/24 14:40 Procedures Other Procedure Procedure 1: Other Procedure: umbilical laceration repair: Area is cleaned with alcohol and further silver nitrate sticks x2 were placed in the area of irritation to stop bleeding permanently; patient tolerated procedure well and no complications. Patient was given Surgicel to stop acute bleeding at this time. MDM - Skin/Abscess/Foreign Bdy MDM Narrative Medical decision making narrative: patient is a 54-year-old male with umbilical bleeding of the skin. We will do silver nitrate repair. Discharge Plan Discharge Clinical Impression: Umbilical bleeding Patient Disposition: Home Condition: Stable Instructions: Abrasion (ED) Patient Language: Finnish Prescriptions: No Action allopurinol 300 mg tablet 300 mg PO DAILY metoprolol succinate 25 mg tablet extended release 24 hr 12.5 mg PO DAILY venlafaxine 75 mg capsule,extended release 24hr 75 mg PO DAILY hydrocodone-acetaminophen 10-325 mg tablet 10 - 325 tablet PO TID dexamethasone 4 mg tablet 4 mg PO Q8H Qty: 14 0RF ondansetron 4 mg tablet,disintegrating 4 mg PO Q8H 4 Days Qty: 12 0RF doxycycline monohydrate 100 mg capsule 100 mg PO BID 7 Days Qty: 14 0RF hydroxyzine HCl 25 mg tablet 25 mg PO TID PRN (Reason: itching) Qty: 30 0RF prednisone 20 mg tablet 40 mg PO DAILY 3 Days Qty: 6 0RF gabapentin 300 mg capsule 300 mg PO BID buspirone 15 mg tablet 15 mg PO BID Qty: 0 0RF lisinopril-hydrochlorothiazide 20-12.5 mg tablet 1 tablet PO DAILY pantoprazole 40 mg tablet,delayed release (DR/EC) 40 mg PO BID Follow-up/Referrals: Zahraa,Ori García MD [Primary Care Provider] - Time of Disposition: 15:54
[2024-09-14 15:30] VITALS: BP 116/78; PULSE 75; RESP 17; O2SAT 95
--- OUTSIDE RECORDS SUMMARY | 2024-09-14 15:41 | XMS_ITS | Encounter Summary ---
Author Organization [facility] Address [facility] [place] [address] Care Team Providers Care Museum Assistant Name Role Phone Shivam Rodriguez MD Primary Care Provider [phone] Ian Couch MD Unavailable [phone] Nayeli Bennett MD Unavailable Unavailabl Kaylie Stone APRN, BEVEL FACE STONER AND POLISHER-C Unavailable Guanakito Mosher Primary Care Provider [phone] Karma Ding MD, Deepak Unavailable [phone] Ori Vital MD Primary Care Provider [phone] Encounter Details Date Type Department Care Team (Late Contact Info) Description 07/15/2018 Abstract [facility] [address] [place] [address] , Generic Conversion, Social History Tobacco Use [...] Description 09/18/2024 9:30 AM CDT Office Visit [facility] [address] [facility] [address] [place] [address] Kaylah Molina, [facility]- [address] [facility] [place] [address] documented as of this encounter Visit Diagnoses Not on filedocumented in this encounter Additional Health Concerns Infection Onset Date Last Indicated Resolved Time COVID-19 Rule Out 11/08/2020 11/08/2020 11/08/2020 4:22 PM CDT COVID-19 Rule Out 12/17/2022 12/17/2022 12/17/2022 3:35 AM OUTSIDE SALES REPRESENTATIVE documented as of this encounter Care Teams Museum Assistant Relationship Specialty Start Date End Date Shivam Rodriguez MD [address] [place] [address] PCP - General FAMILY PRACTICE 09/19/17 08/20/20 [place] [address] [address] [place], [place] [address] PCP - General PHYSICIAN MANAGER PLACEMENT 08/21/20 04/08/22 Ori Vital MD [facility] DEPT OF SURGERY - NEUROSURGERY [address] [address] [place], [place] [address] PCP - General FAMILY PRACTICE 04/09/22 Ian Couch MD [address] [place] [address] Leroy Pipeliner CARDIOVASCULAR DISEASE 09/19/17 Nayeli Bennett MD [address] [place] [address] Consulting Physician CARDIOVASCULAR DISEASE 03/28/20 Kaylie Sterling, DELI CUTTER SLICER, BEVEL FACE STONER AND POLISHER-C [address] [place] [address] [address] [place] [address] NURSE PRACTITIONER 08/05/20 Deepak Parada MD [facility] DEPT OF SURGERY - NEUROSURGERY [address] [address] [place] [address] NEUROLOGICAL SURGERY 08/21/20 documented as of this encounter
--- OUTSIDE RECORDS SUMMARY | 2024-09-14 15:41 | XMS_ITS | Encounter Summary ---
Author Organization [facility] Address [facility] [place] [address] Care Team Providers Care Network Professional Name Role Phone Ian Couch MD Unavailable [phone] Nayeli Bennett MD Unavailable Unavailabl e Kaylie Sterling APRN, NP-C Unavailable Karma Ding MD, Deepak Unavailable [phone] Ori Vital MD Primary Care Provider [phone] Encounter Details Date Type Department Care Team (Late st Contact Info) Description 10/12/2023 MyChart Message Enc [facility] [address] [place], [place] [id number] Jan Fox MD Visit Follow Up Social [...] place to sleep or slept in a detention (including now)? No 12/17/2022 Sex and Gender [...] 11:57 AM Sahra Fonseca RN Active * [place] Suicide Severity Rating Scale (Screener/Recent Self-Report) Question [...] Description 09/18/2024 9:30 AM CDT Office Visit [facility] [place] [id number] [facility] [address] [place] [address] Kaylah Molina, SUPPLY OFFICER- [address] [place] [address] [place] [id number] documented as of this encounter Goals Goal [...] home upon discharge Lifestyle Yes Kaycee Woods, biostatistics teacher - family caregiver with be involved in care transitions and discharge planning Lifestyle Yes Kaycee Woods, RN documented as of this encounter Visit Diagnoses Not on filedocumented in this encounter Care Teams Network Professional Relationship Specialty Start Date End Date Ori Vital MD [facility] DEPT OF SURGERY - [place] [place] [address] PCP - General FAMILY PRACTICE 04/09/22 Ian Couch MD [address] [place] [phone] [place] Iron Miner CARDIOVASCULAR DISEASE 09/19/17 Nayeli Bennett MD [address] [place] [phone] Consulting Physician CARDIOVASCULAR DISEASE 03/28/20 Kaylie Sterling APRN, AUTO RADIATOR MECHANIC-C [address] [place] [address] [address] [place] [phone] NURSE PRACTITIONER 08/05/20 Deepak Parada MD [facility] DEPT OF SURGERY - [place] [place] [address] NEUROLOGICAL SURGERY 08/21/20 documented as of this encounter
--- OUTSIDE RECORDS SUMMARY | 2024-09-14 15:41 | XMS_ITS | Encounter Summary ---
Author Organization [facility] Address [facility] [place] [address] Care Team Providers Care Revenue Investigator Name Role Phone Shivam Rodriguez MD Primary Care Provider [phone] Ian Couch MD Unavailable [phone] Nayeli Bennett MD Un[facility] Kaylie Stone APRN, MONOGRAM MACHINE OPERATOR-C Unavailable [phone] Guanakito Mosher Primary Care Provider [phone] Karma Ding MD, Deepak Unavailable [phone] Ori Vital MD Primary Care Provider [phone] Encounter Details Date Type Department Care Team (Late st Contact Info) Description 12/01/2017 Abstract [facility] Neuroscience [facility] [address] [place] [phone] Christiano El MD [address] [place] [id number] Social History Tobacco Use Types Packs/Day Years [...] Description 09/18/2024 9:30 AM CDT Office Visit [facility] [address] [facility] [address] [place] [address] Kaylah Molina, BARREL TURNER-BC [address] [facility] [place] [address] documented as of this encounter Visit Diagnoses Not on filedocumented in this encounter Additional Health Concerns Infection Onset Date Last Indicated Resolved Time COVID-19 Rule Out 11/08/2020 11/08/2020 11/08/2020 4:22 PM CDT COVID-19 Rule Out 12/17/2022 12/17/2022 12/17/2022 3:35 AM FENCE POST CUTTER documented as of this encounter Care Teams Revenue Investigator Relationship Specialty Start Date End Date Shivam Rodriguez MD [address] [place] [address] PCP - General FAMILY PRACTICE 09/19/17 08/20/20 [place] [address] [address] [place] [address] PCP - General PHYSICIAN GRINDING OPERATOR 08/21/20 04/08/22 Ori Vital MD [facility] DEPT OF SURGERY - [place] [address] PCP - General FAMILY PRACTICE 04/09/22 Ian Couch MD [address] [place] [phone] [place] Face And Fill Packer CARDIOVASCULAR DISEASE 09/19/17 Nayeli Bennett MD [address] [place] [phone] Consulting Physician CARDIOVASCULAR DISEASE 03/28/20 Kaylie Sterling APRN, MONOGRAM MACHINE OPERATOR-C [address] [facility] [address] [place] [address] NURSE PRACTITIONER 08/05/20 Deepak Parada MD [facility] DEPT OF SURGERY - NEUROSURGERY [address] [address] [place] [address] NEUROLOGICAL SURGERY 08/21/20 documented as of this encounter
--- OUTSIDE RECORDS SUMMARY | 2024-09-14 15:41 | XMS_ITS | Encounter Summary ---
Author Organization [facility] Address [facility] [place] [address] Care Team Providers Care Spring Salvage Worker Name Role Phone Ian Couch MD Unavailable [phone] Nayeli Bennett MD Unavailable Unavailabl Kaylie Stone APRN SERVICE CENTER MANAGER-C Unavailable Guanakito Mosher Primary Care Provider [phone] Karma Ding MD, Deepak Unavailable [phone] Ori Vital MD Primary Care Provider [phone] Encounter Details Date Type Department Care Team (Late st Contact Info) Description 12/15/2021 MyChart Message Enc [facility] [address], [place] [address] Real Austin MD [address] [place] [address] Visit Follow Up Social History Tobacco Use [...] Coronavirus/COVID-19? No / Unsure 12/16/2021 2:55 PM CLEANING TECHNICIAN documented as of this encounter Functional Status [...] Description 09/18/2024 9:30 AM CDT Office Visit [facility] [address] [facility] [address] [place] [address] Kaylah Molina, HEALTH OUTCOMES LIAISON- [address] [facility] [place] [address] documented as of this encounter Goals Goal [...] Rule Out 12/17/2022 12/17/2022 12/17/2022 3:35 AM CLEANING TECHNICIAN documented as of this encounter Care Teams Spring Salvage Worker Relationship Specialty [place] [address] [address] [place] [address] PCP - General PHYSICIAN YARD SPECIALIST 08/21/20 04/08/22 Ori Vital MD [facility] DEPT OF SURGERY - [place] [address] PCP - General FAMILY PRACTICE 04/09/22 Ian Couch MD [address] [place] [phone] [place] Forest Manager CARDIOVASCULAR DISEASE 09/19/17 Nayeli Bennett MD [address] [place] [address] Consulting Physician CARDIOVASCULAR DISEASE 03/28/20 Kaylie Sterling, LAURA, SERVICE CENTER MANAGER-C [address] [facility] [address] [place] [address] NURSE PRACTITIONER 08/05/20 Deepak Parada MD [facility] DEPT OF SURGERY - [place] [address] NEUROLOGICAL SURGERY 08/21/20 documented as of this encounter
--- OUTSIDE RECORDS SUMMARY | 2024-09-14 15:41 | XMS_ITS | Encounter Summary ---
Author Organization [facility] Address [facility] [place] [address] Care Team Providers Care Food Critic Name Role Phone Ian Couch MD Unavailable [phone] Nayeli Bennett MD Unavailable Unavailabl e Kaylie Sterling APRN, NP-[place] Unavailable Karma Ding MD, Deepak Unavailable [phone] Ori Vital MD Primary Care Provider [phone] Reason for Visit * Reason Onset Date Comments Appointment Request 09/13/2024 Encounter Details Date Type Department Care Team (Late st Contact Info) Description 09/13/2024 Telephone [facility] [place] [address] Kaylah Molina, [facility]- [address] [facility] [place] [address] Appointment Request Social History Tobacco Use Types [...] for Knee Brace to be sent to [facility]. His call back [phone] documented in this encounter Plan of Treatment Upcoming Encounters Date Type Department Care Team (Late st Contact Info) Description 09/18/2024 9:30 AM CDT Office Visit [facility] [address] [facility] [address] [place] [address] Kaylah Molina, ASSISTANT DIRECTOR OF FINANCIAL AID-BC [address] [facility] [place] [address] documented as of this encounter Goals Goal [...] on filedocumented in this encounter Care Teams Food Critic Relationship Specialty Start Date End Date Ori Vital MD [facility] DEPT OF SURGERY - NEUROSURGERY [address] [address] [place], [place] [address] PCP - General FAMILY PRACTICE 04/09/22 Ian Couch MD [address] [place] [address] [place] Metal Drill Operator CARDIOVASCULAR DISEASE 09/19/17 Nayeli Bennett MD [address] [place] [address] Consulting Physician CARDIOVASCULAR DISEASE 03/28/20 Kaylie Sterling APRN, OUTPATIENT CODER-C [address] [facility] [address] [place] [address] NURSE PRACTITIONER 08/05/20 Deepak Parada MD [facility] DEPT OF SURGERY - NEUROSURGERY [place] [address] NEUROLOGICAL SURGERY 08/21/20 documented as of this encounter
--- OUTSIDE RECORDS SUMMARY | 2024-09-14 15:41 | XMS_ITS | Clinical Summary ---
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 No 12/17/2022 Sex and Gender [...] Description 09/18/2024 9:30 AM CDT Office Visit [facility] [place] [address] [facility] [address] [place] [address] Kaylah Molina, STEEL L[employer]ER- [address] [place] [address] Health Maintenance Due Date Last Done Comments [...] Woods RN Medical Devices Implanted Type Area Lighting Fixture Installer Device Identifier Shelf Expiration Date Model / Serial / Lot Graft Bone [place] Putty Dbm 1.0ml - [id number] Implanted:Qty: 1 on 10/01/2020 by [facility]ak [facility] MD at [facility] Bone N/A: Spine Cervical [employer] [id number] 07/08/2023 [id number] / [id number] / N/A Cap Naill Itst Sliding Consuelo - [id number] Implanted:Qty: 1 on 12/19/2022 by Geraldo Brady MD at [facility] End Cap Right: Tibia [employer] 06/06/2028 [id number] / / [id number] Plate Medtronic [place] 25mm - [id number] Implanted:Qty: 1 on 10/01/2020 by Deepak Parada MD at [facility] Plate N/A: Spine Cervical [employer] [id number] / / Screw Fixed Medtronic 4.0 X 16mm - [id number] Implanted:Qty: 4 on 10/01/2020 by Deepak Parada MD at [facility] Screw N/A: Spine Cervical [employer] [id number] / / Screw Cortical Consuelo Prox Dist F/T 5.0 X 32.5mm - [id number] Implanted:Qty: 1 on 12/19/2022 by Geraldo Brady MD at [facility] Screw Right: Tibia [employer] 02/22/2032 [id number] / / [id number] Screw Cortical Consuelo Prox Dist F/T 5.0 X 40mm - [id number] Implanted:Qty: 1 on 12/19/2022 by Geraldo Brady MD at [facility] Screw Right: [employer] 09/29/2032 [id number] / / [id number] Screw Cortical Consuelo F/T 5.0 X 45mm - [id number] Implanted:Qty: 1 on 12/19/2022 by Geraldo Brady MD at [facility] Screw Right: [employer]ia [employer] 05/24/2032 [id number] / / [id number] Screw Cortical Consuelo Prox Dist F/T 5.0 X 32.5mm - [id number] Implanted:Qty: 1 on 12/19/2022 by Geraldo Brady MD at [facility] Screw Right: [employer]ia [employer] 09/21/2032 [id number] / / [id number] Agent Hemostatic Surgiflo Thrombin 8 Ml Kit Matrix Steril - Sn/A Implanted:Qty: 1 on 10/01/2020 by Deepak Parada MD at [facility] Sealant N/A: Spine Cervical [employer] 10/07/2021 [id number] / N/A / [id number] Nanolocl Endoskeleton Tc Implant Implanted:Qty: 1 on 10/01/2020 by Deepak Parada MD at [facility] N/A: Spine Cervical [employer] [id number] 02/19/2024 6014-1664-N / N/A / [id number] Plate-4 Hole Distal Lateral Fibula Implanted:Qty: 1 on 12/23/2021 by Real Austin MD at [facility] Left: Ankle [employer]ERRA / / 3.5 X 14mm Locking Screw Implanted:Qty: 4 on 12/23/2021 by Real Austin MD at [facility] Left: Ankle [employer] [id number] / / [id number] 3.5 X 16mm Locking Screw Implanted:Qty: 2 on 12/23/2021 by Real Austin MD at [facility] Left: Ankle [employer] [id number] / / [id number] 3.5 X 12mm Locking Screw Implanted:Qty: 1 on 12/23/2021 by Real Austin MD at [facility] Left: Ankle [employer] [id number] / / [id number] 3.5 X 18mm Nonlocking Screw Implanted:Qty: 1 on 12/23/2021 by Real Austin MD at [facility] Left: Ankle [employer] [id number] / / [id number] 3.5 X 14mm Nonlocking Screw Implanted:Qty: 1 on 12/23/2021 by Real Austin MD at [facility] Left: Ankle [employer] [id number] / / [id number] 10 Hole Distal Medial Tibia Plate Implanted:Qty: 1 on 04/09/2022 by Real Austin MD at [facility] Right: Tibia [id number] / / 3.5x40mm Nl Screw Implanted:Qty: 1 on 04/09/2022 by Real Austin MD at [facility] Right: Tibia [id number] / / 3.5x50mm Nl Screw Implanted:Qty: 1 on 04/09/2022 by Real Austin MD at [facility] Right: Tibia [id number] / / 3.5x30 Mm Nl Screw Implanted:Qty: 1 on 04/09/2022 by Real Austin MD at [facility] Right: Tibia [id number] / / 3.3x 34mm Nl Screw Implanted:Qty: 1 on 04/09/2022 by Real Austin MD at [facility] Right: Tibia [id number] / / 4.0x26mm Locking Screw Implanted:Qty: 4 on 04/09/2022 by Real Austin MD at [facility] Right: Tibia [id number] / / 4.0x30mm Locking Screw Implanted:Qty: 2 on 04/09/2022 by Real Austin MD at [facility] Right: Tibia [id number] / / 4.0x36mm Locking Screw Implanted:Qty: 1 on 04/09/2022 by Real Austin MD at [facility] Right: Tibia [id number] / / 4.0x46mm Locking Screw Implanted:Qty: 1 on 04/09/2022 by Real Austin MD at [facility] Right: Tibia [id number] / / 4.0x28mm Locking Screw Implanted:Qty: 1 on 04/09/2022 by Real Austin MD at [facility] Right: Tibia [id number] / / Natural Nail System Tibial Nail-Yellow 9.3mm Diameter 32cm Length Implanted:Qty: 1 on 12/19/2022 by Geraldo Brady MD at [facility] Right: Tibia [employer] 12/19/2031 [id number] / / [id number] Explanted Type Area Lighting Fixture Installer Device Identifier Shelf Expiration Date Model / Serial / Lot Drill Bit Medtronic - Sn/A Explanted:Qty: 1 on 10/01/2020 at [facility] Drill N/A: Spine Cervical [employer] [id number] 08/13/2025 [id number] / N/A / [id number] Drill Bit Consuelo 4.3 - [id number] Explanted:Qty: 2 on 12/19/2022 by Geraldo Brady MD at [facility] Drill Right: Tibia [employer] [id number] / / Drill Bit Consuelo Tib/Hum Irineo 4.3mm - [id number] Explanted:Qty: 1 on 12/19/2022 by Geraldo Brady MD at [facility] Drill Right: [employer] [id number] / / Pin Distraction Medline 12mm - Sn/A Explanted:Qty: 2 on 10/01/2020 at [facility] Pin N/A: Spine Cervical Black Lotus [id number] / N/A / [id number] Pin Consuelo 3.0mm Threaded - [id number] Explanted:Qty: 1 on 12/19/2022 by Geraldo Brady MD at [facility] Pin Right: [employer] [id number] / / Pin Fixation 2mm Tibial - [id number] Explanted:Qty: 1 on 12/19/2022 at [facility] Pin Right: [employer] [id number] / / Drill Bit 2.6mm X 135mm Explanted:Qty: 1 on 12/23/2021 by Real Austin MD at [facility] Left: Ankle [employer] DIV [employer] [id number] / / [id number] Drill Bit Explanted:Qty: 1 on 04/09/2022 by Real Austin MD at [facility] Right: Tibia [id number] / / 2.5x216 Mm Drill Bit Explanted:Qty: 1 on 04/09/2022 by Real Austin MD at [facility] Right: Tibia [id number] / / K-Wire 2.0mm Explanted:Qty: 1 on 04/09/2022 by Real Austin MD at [facility] Right: Tibia [id number] / / Procedures Procedure Name Priority Date/Time Associated Diagnosis Comments OCCULT BLOOD, FECES STAT 12/17/2022 7 :14 AM HAND TILE MAKER from Last 3 Months or Most Recently Relevant to Health Maintenance Results * (ABNORMAL) OCCULT BLOOD, FECES (12/17/2022 7:14 AM HAND TILE MAKER) OCCULT BLOOD FECAL POSITIVE(A ) NEGATIVE 12/17/2022 7:36 AM HAND TILE MAKER [facility] Comment:2+ STOOL SPECIMEN / Unknown 12/17/2022 7:14 AM HAND TILE MAKER Juan Avila MD BODY FLUIDS AND STOOLS ORDERABLE S Final Result [facility] [address] [id number], from Last 3 Months or Most Recently Relevant to Health Maintenance Insurance MEDICAID MEDICAID Advance Directives * Full Code (Latest Code Status on File) Date Activated Date Inactivated Comments 12/17/2022 1:22 PM 12/20/2022 3:56 PM * Full Code Date Activated Date Inactivated Comments 11/08/2020 12:52 AM 11/09/2020 1:38 PM Care Teams Polishing Pad Mounter Relationship Specialty Start Date End Date Ori Viatl MD [facility] DEPT OF SURGERY - [place] [address] [place] [place] [address] PCP - General FAMILY PRACTICE 04/09/22 Ian Couch MD [address] [place] [phone] [place] [employer] Loss Prevention Manager CARDIOVASCULAR DISEASE 09/19/17 Nayeli Bennett MD [address] [place] [address] Consulting Physician CARDIOVASCULAR DISEASE 03/28/20 Kaylie Sterling, REMOTE SENSING SURVEYOR, BRAKE REPAIRER BUS-C [address] [facility] [address] [place] [address] NURSE PRACTITIONER 08/05/20 Deepak Parada MD [facility] DEPT OF SURGERY - NEUROSURGERY [address] [address] [place], [place] [address] NEUROLOGICAL SURGERY 08/21/20
--- OUTSIDE RECORDS SUMMARY | 2024-09-14 15:41 | XMS_ITS | Encounter Summary ---
Author Organization [facility] Address [facility] access [facility] [place] [address] Care Team Providers Care General Accounting Manager Name Role Phone Ian Couch MD Unavailable [phone] Nayeli Bennett MD Unavailable Unavailabl Kaylie Stone APRN, DEVELOPMENT WRITER-C Unavailable Guanakito Mosher Primary Care Provider [phone] Karma Ding MD, Deepak Unavailable [phone] Ori Vital MD Primary Care Provider [phone] Encounter Details Date Type Department Care Team (Late st Contact Info) Description 11/10/2020 Hospital Follow-up Call [facility] [address] [place], [place] [address] Leora Salgado RN Social History Tobacco Use [...] Description 09/18/2024 9:30 AM CDT Office Visit [facility] [address] [address] Kaylah Molina, [facility]-[address] [place] [address] documented as of this encounter Goals Goal [...] Rule Out 12/17/2022 12/17/2022 12/17/2022 3:35 AM MATTRESS STRIPPER documented as of this encounter Care Teams General Accounting Manager Relationship Specialty [place] [address] [address] [place] [address] PCP - General PHYSICIAN PLASTER MODEL AND MOLD MAKER 08/21/20 04/08/22 Ori Vital MD [facility] DEPT OF SURGERY - [place] [address] [place] [place] [address] PCP - General FAMILY PRACTICE 04/09/22 Ian Couch MD [address] [place] [address] [place] Customer Support Advisor CARDIOVASCULAR DISEASE 09/19/17 Nayeli Bennett MD [address] [place] [address] Consulting Physician CARDIOVASCULAR DISEASE 03/28/20 Kaylie Sterling, MANAGER SPECIALTY, DEVELOPMENT WRITER-C [address] [place] [address] [address] [place] [address] NURSE PRACTITIONER 08/05/20 Deepak Parada MD [facility] DEPT OF SURGERY - [place] [address] [place] [address] NEUROLOGICAL SURGERY 08/21/20 documented as of this encounter
--- OUTSIDE RECORDS SUMMARY | 2024-09-14 15:41 | XMS_ITS | Encounter Summary ---
Author Organization [facility] Address [facility] [place] [address] Care Team Providers Care Cyber Defense Analyst Name Role Phone Ian Couch MD Unavailable [phone] Nayeli Bennett MD Unavailable Unavailabl e Kaylie Sterling APRN, NP-C Unavailable Karma Ding MD, Deepak Unavailable [phone] Ori Vital MD Primary Care Provider [phone] Encounter Details Date Type Department Care Team (Late st Contact Info) Description 08/15/2024 [employer] Systemst Message Enc [facility] [address] [place] [address] Nichelle Zurita PA [address] [place] [address] Visit Follow Up Social History Tobacco Use [...] place to sleep or slept in a custodial (including now)? No 12/17/2022 Sex and Gender [...] Description 09/18/2024 9:30 AM CDT Office Visit [facility] [address] [address] Kaylah Molina, [facility]-[address] [place] [address] documented as of this encounter Goals Goal [...] on filedocumented in this encounter Care Teams Cyber Defense Analyst Relationship Specialty Start Date End Date Ori Vital MD [facility] DEPT OF SURGERY - NEUROS[place] [address] PCP - General FAMILY PRACTICE 04/09/22 Ian Couch MD [address] [place] [address] [employer] Ath[employer] CARDIOVASCULAR DISEASE 09/19/17 Nayeli Bennett MD [address] [place] [address] Consulting Physician CARDIOVASCULAR DISEASE 03/28/20 Kaylie Sterling, LAURA, CONCRETE LABORER-C [address] [facility] [address] [place] [address] NURSE PRACTITIONER 08/05/20 Deepak Parada MD [facility] DEPT OF SURGERY - NEUROSURGERY [address] [place], [place] [address] NEUROLOGICAL SURGERY 08/21/20 documented as of this encounter
[2024-09-14 16:10] VITALS: BP 112/69; PULSE 73; RESP 16; TEMP 36.7; O2SAT 95
== END 2024-09-14 16:10 | disposition home or self-care (01) ==
PROVIDERS: Emergency Provider Emergency Medicine; PCP Family Medicine
DX: S31.115A Laceration without foreign body of abdominal wall, periumbilic region without penetration into peritoneal cavity, initial encounter (principal); I10 Essential (primary) hypertension; W45.8XXA Other foreign body or object entering through skin, initial encounter
CPT/HCPCS: 12001; 99282